=== PATIENT | female | born 1965 ===

== ENCOUNTER 2020-08-15 15:34 | Outpatient (REF) | payer OTHER, SELFPAY | END 2020-08-15 15:35 | disposition home or self-care (01) | LOC: HO.LAB 15:34 | PROVIDERS: Visit Provider Internal Medicine | DX: Z20.828 Contact with and (suspected) exposure to other viral communicable diseases (principal) | CPT/HCPCS: C9803; U0003 ==

== ENCOUNTER 2020-08-28 11:10 | Outpatient (REF) | payer OTHER, SELFPAY | END 2020-08-28 11:11 | disposition home or self-care (01) | LOC: HO.LAB 11:10 | PROVIDERS: Visit Provider Internal Medicine | DX: Z20.828 Contact with and (suspected) exposure to other viral communicable diseases (principal) | CPT/HCPCS: C9803; U0003 ==

== ENCOUNTER 2024-01-24 15:24 | Outpatient (AMB) | payer OTHER, SELFPAY ==
--- NOTE | 2024-01-24 15:31 | A.OFFVIS_ITS ---
Vital Signs 3 01/24/24 15:32 Height 5 ft 4 in Weight 160 lb 14.999 oz BMI 27.6 BP 107/51 L Blood Pressure Location Lt brachial Position Sitting Pulse 88 Intake Visit Reasons: Colonoscopy Screening Intake Note: Patient in office today for colonoscopy screening. CC: Last colonoscopy done about 5 years ago at [facility]. Patient c/o constipation she was given Linzess in the past but it did not work for her and she currently takes Miralax. Patient takes Famotidine for heartburn. 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 She is referred by [facility]. PMX PARMJIT Insomnia Fibromyalgia syndrome Hypothyroid Generalized osteoarthritis Urinary incontinence Diabetes high cholesterol hypertrigs gerd * SURGICAL HISTORY Tonsillectomy section * ALLERGIES Ketorolac-anaphylaxis * MEDITECH LABS: none TODAY'S VISIT She says her last colonoscopy was at [facility] and was negative. Apparently she was a [facility] patient. She has suffering CIC for many years, she has been on multiple meds including Linzess, but she does not know what dose she was at and it was not effective. She says she has a long hx and many tests including possible defecogram, but we were not sent any records to this effect. she is currently taking Miralax, but she dislikes this and it is not effective. All of the OTC pills including senna and bisacodyl give her severe cramping. She also says she has severe HB and usually gets EGD's q5 years, but she does not know if she has SSBE. Will restart Linzess 145mcg and titrate to affect her side effect since she does not know what dose she was on the past. She seems to think she had a test that showed something was not progressing properly or was getting stuck somewhere in the right lower quadrant area. There are no prior problems with anesthesia or sedation. She has PARMJIT and denies any cardiac problems. No ID problems. She thinks her mother had colon polyps, she has a lot of family members with CRC but not 1st degree relatives. [facility] Surgical History (Updated 01/24/24 @ 15:33 by JAMIR Ladd) H/O colonoscopy History of section Hx of tonsillectomy Family History (Updated 01/24/24 @ 15:42 by JAMIR Ladd) Maternal Aunt Diverticulosis Paternal Aunt H/O colectomy Social History (Updated 01/24/24 @ 15:42 by JAMIR Ladd) Alcohol intake: never Patient Tobacco Use Status: Never used Tobacco Review of Systems Const Denies fatigue, Denies fever(s), Denies night sweats, Denies poor appetite and Denies weight loss ENT Reports Normal hearing present, Denies dental pain, Denies dysphagia, Denies hearing loss, Denies mouth pain, Denies odynophagia, Denies throat swelling, Denies tongue swelling and Reports other (Dentition adequate) Card Reports no additional complaints Resp Reports no additional complaints GI Details: Denies abdominal pain, Denies melena, Denies bloating, Denies hematochezia, Reports constipation, Denies GI cramping, Denies dysphagia, Denies excessive flatus, Denies early satiety, Reports heartburn, Denies diarrhea, Denies nausea, Denies odynophagia, Denies vomiting and Denies hematemesis Skin/Breast Denies pruritus, Denies lesions, Denies rash and Denies jaundice Neuro Reports Normal hearing present and Denies Abnormal speech present Endo Denies fatigue Aller/Immun Denies throat swelling and Denies tongue swelling Physical Exam Vital Signs: Last Vital Signs Pulse 88 01/24/24 15:32 BP 107/51 L 01/24/24 15:32 BMI result Body Mass Index 27.6 Const General: cooperative, no acute distress, well developed and well groomed Nutritional Appearance: well nourished and overweight Orientation/consciousness: oriented to person, oriented to place and oriented to time Limitations: No language barrier HEENT Head: Yes normocephalic and Yes atraumatic Eyes General: appearance normal, both eyes and all related structures Pupils: Equal, round and reactive pupils present Neck Neck: Yes normal visual inspection and Yes no lymphadenopathy Thyroid: Thyroid normal Resp Effort & Inspection: normal respiratory effort and able to speak in complete sentences Auscultation: clear to auscultation bilaterally Cardio Rate: regular rate Rhythm: regular rhythm Heart sounds: Normal, physiologic split S2 sound present Peripheral pulses: radial pulses present and posterior tibial pulses present GI Inspection: No distended, No Abdominal panniculus present and Yes obesity Palpation (GI): Soft to palpation, nontender, no guarding, not rigid and No hepatosplenomegaly present Percussion: Yes normal to percussion Auscultation: normal bowel sounds Rectal Exam - Female: deferred Abdomen image: 2 1. surgical scar Skin General skin exam: no rashes or lesions noted, turgor normal, skin not dry, no jaundice, No spider nevi and no striae Rashes: no rashes Nails: normal Neuro General: oriented to person, oriented to place and oriented to time Cranial nerves: Yes Equal, round and reactive pupils present and Yes Normal hearing present Speech: No Abnormal speech present Extrem General: Yes normal to inspection, No clubbing, No cyanosis and No edema Psych Appearance: grossly normal and well kempt Mental Status: mental status grossly normal Speech and movement: Normal speech and movement present Affect: normal affect Attitude: cooperative Thought process: Circumstantial thought process present and not confabulating Thought content: Normal thought content present Insight: Limited insight present (Psych) Judgement: Limited judgement present (Psych) Assessment & Plan Assessment & Plan (1) Pre-op examination: Code(s): Z01.818 - Encounter for other preprocedural examination Category: Medical (2) Family history of polyps in the colon: Comment: mother Code(s): Z83.719 - Family history of colon polyps, unspecified Category: Medical (3) Esophagitis: Code(s): K20.90 - Esophagitis, unspecified without bleeding Category: Medical (4) GERD (gastroesophageal reflux disease): Code(s): K21.9 - Gastro-esophageal reflux disease without esophagitis Category: Medical (5) PARMJIT (obstructive sleep apnea): Code(s): G47.33 - Obstructive sleep apnea (adult) (pediatric) Category: Medical (6) Chronic idiopathic constipation: Code(s): K59.04 - Chronic idiopathic constipation Category: Medical Plan She says her last colonoscopy was at [facility] and was negative. Apparently she was a [facility] patient. She has suffering CIC for many years, she has been on multiple meds including Linzess, but she does not know what dose she was at and it was not effective. She says she has a long hx and many tests including possible defecogram, but we were not sent any records to this effect. she is currently taking Miralax, but she dislikes this and it is not effective. All of the OTC pills including senna and bisacodyl give her severe cramping. She also says she has severe HB and usually gets EGD's q5 years, but she does not know if she has SSBE. Will restart Linzess 145mcg and titrate to affect her side effect since she does not know what dose she was on the past. She seems to think she had a test that showed something was not progressing properly or was getting stuck somewhere in the right lower quadrant area. There are no prior problems with anesthesia or sedation. She has PARMJIT and denies any cardiac problems. No ID problems. She thinks her mother had colon polyps, she has a lot of family members with CRC but not 1st degree relatives. Orders: Orders 2 Comprehensive Met. Panel Today Z01.818 - Encounter for other preprocedural examination Complete Blood Count Auto Diff Today Z01.818 - Encounter for other preprocedural examination EGD/[place] Combo - GI Use Only Today K20.90 - Esophagitis, unspecified without bleeding, K21.9 - Gastro-esophageal reflux disease without esophagitis, Z83.719 - Family history of colon polyps, unspecified Medications: New 2 sod sulf-pot chloride-mag sulf 1.479-0.188- 0.225 gram (Sutab) PO PER PKG DIR for colonoscopy prep 24 tabs 0RF linaclotide (Linzess) Take first thing in the morning with a full glass of water. 145 mcg PO QAM 30 caps 3RF K58.1 - Irritable bowel syndrome with constipation Coding Level of Care Code New Pt Level 3 (25299) Diagnoses Pre-op examination Z01.818 Family history of polyps in the colon Z83.719 Esophagitis K20.90 GERD (gastroesophageal reflux disease) K21.9 PARMJIT (obstructive sleep apnea) G47.33 Chronic idiopathic constipation K59.04
[2024-01-24 15:32] VITALS: BP 107/51; PULSE 88; BMI 27.6
== END 2024-01-24 16:09 | disposition home or self-care (01) ==
PROVIDERS: PCP Internal Medicine Geriatric Medicine; Visit Provider Nurse Practitioner
DX: K59.04 Chronic idiopathic constipation (principal); K21.9 Gastro-esophageal reflux disease without esophagitis; Z01.818 Encounter for other preprocedural examination; Z12.11 Encounter for screening for malignant neoplasm of colon; Z83.719 Family history of colon polyps, unspecified; K20.90 Esophagitis, unspecified without bleeding; G47.33 Obstructive sleep apnea (adult) (pediatric)
CPT/HCPCS: 99203

== ENCOUNTER → 2024-01-24 15:24 | Outpatient (BNVA) | payer OTHER, SELFPAY | PROVIDERS: PCP Internal Medicine Geriatric Medicine; Visit Provider Nurse Practitioner ==

== ENCOUNTER 2024-02-13 14:41 | Outpatient (AMB) | payer OTHER, SELFPAY ==
[2024-02-13 14:45] VITALS: BP 102/64; PULSE 77; O2SAT 99; BMI 27.1
--- NOTE | 2024-02-13 14:45 | A.OFFVIS_ITS ---
Vital Signs 02/13/24 14:45 Height 5 ft 4 in Weight 158 lb BMI 27.1 BP 102/64 Blood Pressure Location Rt brachial Position Sitting Pulse 77 Pulse Source Doppler Pulse Oximetry (%) 99 Oxygen Delivery Method Room Air Intake Visit Reasons: sleep apnea Allergies ketorolac Allergy (Unknown, Verified 02/13/24 14:49) anaphylaxis HPI HPI sleep apnea: Details: 58-year-old lady with underlying diagnosis of moderate obstructive sleep apnea referred for initiation of CPAP therapy. Patient states that she also has underlying primary insomnia, now being managed by her primary care provider with Alfa. PFSH Surgical History (Updated 01/24/24 @ 15:33 by Liv Garza CCM) H/O colonoscopy History of section Hx of tonsillectomy Family History (Updated 01/24/24 @ 15:42 by JAMIR Ladd) Maternal Aunt Diverticulosis Paternal Aunt H/O colectomy Social History (Reviewed 02/13/24 @ 14:49 by Gladys Herrera [facility]) Alcohol intake: never Patient Tobacco Use Status: Never used Tobacco Review of Systems Const Reports difficulty sleeping Card Denies dyspnea Resp Denies dyspnea Physical Exam Vital Signs: Last Vital Signs Pulse 77 02/13/24 14:45 BP 102/64 02/13/24 14:45 Pulse Ox 99 02/13/24 14:45 Oxygen Delivery Method Room Air 02/13/24 14:45 BMI result Body Mass Index 27.1 Const General: no acute distress and alert Nutritional Appearance: not obese Orientation/consciousness: Other orientation findings ( oriented) HEENT Head: Yes atraumatic Eyes General: appearance normal, both eyes and all related structures Sclerae: sclerae normal EOM: EOMs intact bilaterally Neck Neck: Yes supple Lymphatic: no lymphadenopathy noted Resp Effort & Inspection: normal respiratory effort and no use of accessory muscles Auscultation: clear to auscultation bilaterally Cardio Rate: regular rate Rhythm: regular rhythm Heart sounds: no gallops, no murmurs and no rubs Skin General skin exam: other ( warm) Extrem General: No clubbing, No cyanosis and No edema Assessment & Plan Assessment & Plan (1) PARMJIT (obstructive sleep apnea): Code(s): G47.33 - Obstructive sleep apnea (adult) (pediatric) Category: Medical Plan: results of sleep study reviewed, underlying moderate obstructive sleep apnea. Will start on APAP of 6-16 cm of water. (2) Primary insomnia: Code(s): F51.01 - Primary insomnia Category: Medical Plan: Currently on Lunesta 2 mg daily. Will reassess at next visit. Coding Level of Care Code New Pt Level 4 (12418) Diagnoses PARMJIT (obstructive sleep apnea) G47.33 Primary insomnia F51.01
== END 2024-02-13 15:06 | disposition home or self-care (01) ==
PROVIDERS: PCP Internal Medicine Geriatric Medicine; Visit Provider Internal Medicine Pulmonary Disease
DX: G47.33 Obstructive sleep apnea (adult) (pediatric) (principal); F51.01 Primary insomnia
CPT/HCPCS: 99204

== ENCOUNTER → 2024-02-13 14:41 | Outpatient (BNVA) | payer OTHER, SELFPAY | PROVIDERS: PCP Internal Medicine Geriatric Medicine; Visit Provider Internal Medicine Pulmonary Disease ==

== ENCOUNTER 2024-04-17 13:38 | Outpatient (REF) | payer OTHER, SELFPAY ==
[2024-04-17 13:57] LABS: MANUAL DIFF FLAG NO
[2024-04-17 14:21] LABS: Basophils Absolute Auto 0.1 X10*3/uL (0.0-0.2); Basophils Percent Auto 0.6 % (0-2); Eosinophils Absolute Auto 0.1 X10*3/uL (0.0-0.4); Eosinophils Percent Auto 1.2 % (0-4); Hematocrit 40.5 % (37.0-47.0); Imm Gran Abs Auto 0.02 X10*3/uL (0.00-0.03); Imm Gran Pct Auto 0.2 % (0.0-0.4); Lymphocytes Absolute Auto 2.2 X10*3/uL (1.2-4.9); Lymphocytes Percent Auto 27.9 % (20-40); Mean Corpuscular HGB Conc 32.1 g/dl (31.0-35.0); Mean Corpuscular Hemoglobin 29.3 pg (27.0-33.0); Mean Corpuscular Volume 91.2 fL (80.0-98.0); Mean Platelet Volume 9.4 fL (9.4-12.3); Monocytes Absolute Auto 0.4 X10*3/uL (0.1-1.2); Monocytes Percent Auto 5.1 % (2-11); Neutrophils Absolute Auto 5.2 x10*3/uL (2.0-8.3); Platelet Count 299 X10*3/uL (160-400); Red Blood Count 4.44 X10*6/uL (4.20-5.50); Red Cell Distribution Width 13.1 % (11.0-16.0)
[2024-04-17 14:51] LABS: Alanine Aminotransferase 14 U/L (0-31); Alkaline Phosphatase 79 U/L (39-117); Anion Gap 11 (12-20); Aspartate Amino Transferase 14 U/L (5-31); Bilirubin Total 0.2 mg/dL (0.0-1.0); Blood Urea Nitrogen 17 mg/dL (9-16); Calcium 9.8 mg/dL (8.4-10.2); Carbon Dioxide 30 mmol/L (22-29); Chloride 102 mmol/L (96-108); Estimated Glomerular Filt Rate 48; Glucose Random 93 mg/dL (60-115); Potassium 4.2 mmol/L (3.3-5.1); Sodium 139 mmol/L (135-145); Total Protein 7.1 g/dL (6.5-8.0)
== END 2024-04-17 13:39 | disposition home or self-care (01) ==
LOC: HO.LAB 13:38
PROVIDERS: PCP Nurse Practitioner Family; Visit Provider Nurse Practitioner
DX: Z01.818 Encounter for other preprocedural examination (principal)
CPT/HCPCS: 36415; 80053; 85025

== ENCOUNTER 2024-04-18 15:30 | Outpatient (AMB) | payer OTHER, SELFPAY ==
[2024-04-18 15:36] VITALS: BP 109/61; PULSE 75; BMI 27.0
--- NOTE | 2024-04-18 15:36 | MHC.OFFVIS ---
Vital Signs 04/18/24 15:36 Height 5 ft 4 in Weight 157 lb 6.561 oz BMI 27.0 BP 109/61 Blood Pressure Location Lt brachial Position Sitting Pulse 75 Intake Visit Reasons: 4 weeks R/S from February Intake Note: Patient here to f/u Linzess medication. Reports no improvement. Requesting famotidine refill. Patient c/o: constipation not better. Only 2-3 BM per wk. Kelp Gatherer Required: No Accompanied by: Self / Same As Patient Allergies ketorolac Allergy (Unknown, Verified 04/18/24 15:40) anaphylaxis HPI HPI 4 weeks R/S from February: Details: Assessment & Plan (1) Pre-op examination: Code(s): Z01.818 - Encounter for other preprocedural examination Category: Medical (2) Family history of polyps in the colon: Comment: mother Code(s): Z83.719 - Family history of colon polyps, unspecified Category: Medical (3) Esophagitis: Code(s): K20.90 - Esophagitis, unspecified without bleeding Category: Medical (4) GERD (gastroesophageal reflux disease): Code(s): K21.9 - Gastro-esophageal reflux disease without esophagitis Category: Medical (5) PARMJIT (obstructive sleep apnea): Code(s): G47.33 - Obstructive sleep apnea (adult) (pediatric) Category: Medical (6) Chronic idiopathic constipation: Code(s): K59.04 - Chronic idiopathic constipation Category: Medical Plan She says her last colonoscopy was at [facility] and was negative. Apparently she was a [facility] patient. She has suffering CIC for many years, she has been on multiple meds including Linzess, but she does not know what dose she was at and it was not effective. She says she has a long hx and many tests including possible defecogram, but we were not sent any records to this effect. she is currently taking Miralax, but she dislikes this and it is not effective. All of the OTC pills including senna and bisacodyl give her severe cramping. She also says she has severe HB and usually gets EGD's q5 years, but she does not know if she has SSBE. Will restart Linzess 145mcg and titrate to affect her side effect since she does not know what dose she was on the past. She seems to think she had a test that showed something was not progressing properly or was getting stuck somewhere in the right lower quadrant area. There are no prior problems with anesthesia or sedation. She has PARMJIT and denies any cardiac problems. No ID problems. She thinks her mother had colon polyps, she has a lot of family members with CRC but not 1st degree relatives. Orders: Orders Comprehensive Met. Panel Today Z01.818 - Encounter for other preprocedural examination Complete Blood Count Auto Diff Today Z01.818 - Encounter for other preprocedural examination EGD/[place] Combo - GI Use Only Today K20.90 - Esophagitis, unspecified without bleeding, K21.9 - Gastro-esophageal reflux disease without esophagitis, Z83.719 - Family history of colon polyps, unspecified Medications: New sod sulf-pot chloride-mag sulf 1.479-0.188- 0.225 gram (Sutab) PO PER PKG DIR for colonoscopy prep 24 tabs 0RF linaclotide (Linzess) Take first thing in the morning with a full glass of water. 145 mcg PO QAM 30 caps 3RF K58.1 - Irritable bowel syndrome with constipation Labs: EGD/COLONOSCOPY 06/12/2024 BIOPSY TODAY'S VISIT She is not moving her bowels well with the LInzess 145mcg with miralax and colace, she can not tolerate senna or bisacodyl r/t pain and cramping. We will increase the Linzess to 290mcg and she can continue the other adjunct meds. SHe tells me she has NIDDM (did not know this) and neuropathy and she will be starting gabapentin. She is aware of the upcoming colonoscopy. ROV 5 weeks. [facility] Medical History (Updated 04/18/24 @ 15:53 by Grace Pineda, ANP-C) Pre-op examination Surgical History (Updated 01/24/24 @ 15:33 by Liv Garza CCM) H/O colonoscopy History of section Hx of tonsillectomy Family History (Updated 01/24/24 @ 15:42 by Liv Garza [facility]) Maternal Aunt Diverticulosis Paternal Aunt H/O colectomy Social History (Reviewed 02/13/24 @ 14:49 by Gladys Herrera [facility]) Alcohol intake: never Patient Tobacco Use Status: Never used Tobacco Review of Systems Const Denies fatigue, Denies fever(s), Denies night sweats, Denies poor appetite and Denies weight loss Eyes Details: glasses Reports requires corrective lenses ENT Reports Normal hearing present, Denies dental pain, Denies dysphagia, Denies hearing loss, Denies mouth pain, Denies odynophagia, Denies throat swelling, Denies tongue swelling and Reports other (Dentition adequate) Card Reports no additional complaints Resp Reports no additional complaints GI Details: Denies abdominal pain, Denies melena, Reports bloating, Denies hematochezia, Reports constipation, Reports GI cramping, Denies dysphagia, Denies excessive flatus, Denies early satiety, Denies heartburn, Denies diarrhea, Denies nausea, Denies odynophagia, Denies vomiting and Denies hematemesis Skin/Breast Denies pruritus, Denies lesions, Denies rash and Denies jaundice Neuro Reports Normal hearing present and Denies Abnormal speech present Endo Denies fatigue Aller/Immun Denies throat swelling and Denies tongue swelling Physical Exam Vital Signs: Last Vital Signs Pulse 75 04/18/24 15:36 BP 109/61 04/18/24 15:36 BMI result Body Mass Index 27.0 Const General: cooperative, no acute distress, well developed and well groomed Nutritional Appearance: average body habitus and well nourished Orientation/consciousness: oriented to person, oriented to place and oriented to time Limitations: No language barrier HEENT Head: Yes normocephalic and Yes atraumatic Eyes General: appearance normal, both eyes and all related structures Pupils: Equal, round and reactive pupils present Neck Neck: Yes normal visual inspection and Yes no lymphadenopathy Thyroid: Thyroid normal Resp Effort & Inspection: normal respiratory effort and able to speak in complete sentences Auscultation: clear to auscultation bilaterally Cardio Rate: regular rate Rhythm: regular rhythm Heart sounds: Normal, physiologic split S2 sound present Peripheral pulses: radial pulses present and posterior tibial pulses present GI Inspection: Yes distended and No Abdominal panniculus present Palpation (GI): Soft to palpation, nontender, no guarding, not rigid and No hepatosplenomegaly present Percussion: Yes normal to percussion Auscultation: normal bowel sounds Rectal Exam - Female: deferred Skin General skin exam: no rashes or lesions noted, turgor normal, skin not dry, no jaundice, No spider nevi and no striae Rashes: no rashes Nails: normal Neuro General: oriented to person, oriented to place and oriented to time Cranial nerves: Yes Equal, round and reactive pupils present and Yes Normal hearing present Speech: No Abnormal speech present Extrem General: Yes normal to inspection, No clubbing, No cyanosis and No edema Psych Appearance: grossly normal and well kempt Mental Status: mental status grossly normal Speech and movement: Normal speech and movement present Affect: normal affect Attitude: cooperative Thought process: Normal thought process present and not confabulating Thought content: Normal thought content present Insight: Fair insight present (Psych) and Limited insight present (Psych) Judgement: Fair judgement present (Psych) and Limited judgement present (Psych) Assessment & Plan Assessment & Plan (1) Chronic idiopathic constipation: Code(s): K59.04 - Chronic idiopathic constipation Category: Medical (2) Diabetic neuropathy: Code(s): E11.40 - Type 2 diabetes mellitus with diabetic neuropathy, unspecified Category: Medical Plan She is not moving her bowels well with the LInzess 145mcg with miralax and colace, she can not tolerate senna or bisacodyl r/t pain and cramping. We will increase the Linzess to 290mcg and she can continue the other adjunct meds. SHe tells me she has NIDDM (did not know this) and neuropathy and she will be starting gabapentin. She is aware of the upcoming colonoscopy. ROV 5 weeks. EGD/COLONOSCOPY 06/12/2024 BIOPSY Medications: New linaclotide (Linzess) 290 mcg PO QAM 30 caps 6RF 30 days K59.04 - Chronic idiopathic constipation docusate sodium (Colace) 100 mg PO .DAILY WITH FOOD 30 caps 6RF 30 days Discontinued linaclotide (Linzess) Take first thing in the morning with a full glass of water. Discontinued Reason: Doctor's Order 145 mcg PO QAM 30 caps 3RF K58.1 - Irritable bowel syndrome with constipation Coding Level of Care Code Est Pt Level 3 (48477) Diagnoses Chronic idiopathic constipation K59.04 Diabetic neuropathy E11.40
== END 2024-04-18 16:04 | disposition home or self-care (01) ==
PROVIDERS: PCP Internal Medicine Geriatric Medicine; Visit Provider Nurse Practitioner
DX: K59.04 Chronic idiopathic constipation (principal); E11.40 Type 2 diabetes mellitus with diabetic neuropathy, unspecified
CPT/HCPCS: 99213

== ENCOUNTER → 2024-04-18 15:30 | Outpatient (BNVA) | payer OTHER, SELFPAY | PROVIDERS: PCP Internal Medicine Geriatric Medicine; Visit Provider Nurse Practitioner ==

== ENCOUNTER 2024-06-27 11:56 | Day surgery (SDC) | payer OTHER, SELFPAY ==
[2024-06-25 14:54] VITALS: BMI 26.9
--- NOTE | 2024-06-26 09:31 | HO.ANESPROP2 ---
Documented by User: Kathy Heath NP 06/26/24 09:32 HPI - Anesthesia Eval Consult details Narrative: 58yo F for Upper Endoscopy and Colonoscopy PMF Active Problems Active Problems: All Active Problems Diabetic neuropathy (Acute) High cholesterol (Acute) Diabetes (Acute) Primary insomnia (Acute) Chronic idiopathic constipation (Acute) GERD (gastroesophageal reflux disease) (Acute) Esophagitis (Acute) Family history of polyps in the colon (Acute) Generalized osteoarthritis (Acute) Urinary incontinence (Acute) Hypothyroid (Acute) Fibromyalgia (Acute) PARMJIT (obstructive sleep apnea) (Acute) Past Medical History Medical History (Updated 06/25/24 @ 14:55 by Claudia Ocampo, REYNA) Sleep apnea Urinary incontinence Elevated cholesterol Fibromyalgia Hypothyroid Diabetes GERD (gastroesophageal reflux disease) Family History Family History (Updated 01/24/24 @ 15:42 by Liv Garza [facility]) Maternal Aunt Diverticulosis Paternal Aunt H/O colectomy Surgical History Surgical History (Updated 01/24/24 @ 15:33 by Liv Garza CCM) H/O colonoscopy History of section Hx of tonsillectomy Social History Social History Alcohol intake: never Patient Tobacco Use Status: Never used Tobacco Are you DNR?: No Advance Directives: No Advance Directives Information Provided: Yes Meds Allergies Allergy/AdvReac Type Severity Reaction Status Date / Time ketorolac Allergy Unknown anaphylaxis Verified 04/18/24 15:40 Home Medications ?Medication ?Instructions ?Recorded ?Confirmed ?Last Taken ?Type duloxetine 60 mg capsule,delayed 60 mg PO DAILY 01/24/24 06/25/24 Unknown History release eszopiclone 2 mg tablet 2 mg PO BEDTIME PRN Insomnia 01/24/24 06/25/24 Unknown History ezetimibe 10 mg tablet 10 mg PO DAILY 01/24/24 06/25/24 Unknown History levothyroxine 137 mcg tablet 137 mcg PO DAILY 01/24/24 06/25/24 Unknown History metformin 500 mg tablet,extended 500 mg PO DAILY 01/24/24 06/25/24 Unknown History release 24 hr mirabegron 25 mg tablet,extended 25 mg PO DAILY 01/24/24 06/25/24 Unknown History release 24 hr naproxen 500 mg tablet 500 mg PO DAILY 01/24/24 06/25/24 Unknown History polyethylene glycol 3350 17 g PO 01/24/24 Unknown History gram/dose oral powder (Purelax) Exam Height,Weight and Vital Signs: Height 5 ft 4 in Weight 71.214 kg Assessment and Plan Assessment Anesthesia Assessment: Chart Reviewed Documented by User: David Burrell MD 06/27/24 14:38 [facility] Past Medical History Medical History (Updated 06/25/24 @ 14:55 by Claudia Ocampo RN) Sleep apnea Urinary incontinence Elevated cholesterol Fibromyalgia Hypothyroid Diabetes GERD (gastroesophageal reflux disease) Family History Family History (Updated 01/24/24 @ 15:42 by JAMIR Ladd) Maternal Aunt Diverticulosis Paternal Aunt H/O colectomy Family history of problems with anesthesia: No Surgical History Surgical History (Updated 01/24/24 @ 15:33 by JAMIR Ladd) H/O colonoscopy History of section Hx of tonsillectomy History of Problems with Anesthesia: No Social History Social History Alcohol intake: never Patient Tobacco Use Status: Never used Tobacco Are you DNR?: No Advance Directives: No Advance Directives Information Provided: Yes Meds Allergies Allergy/AdvReac Type Severity Reaction Status Date / Time ketorolac Allergy Unknown anaphylaxis Verified 04/18/24 15:40 Home Medications ?Medication ?Instructions ?Recorded ?Confirmed ?Last Taken ?Type duloxetine 60 mg capsule,delayed 60 mg PO DAILY 01/24/24 06/25/24 Unknown History release eszopiclone 2 mg tablet 2 mg PO BEDTIME PRN Insomnia 01/24/24 06/25/24 Unknown History ezetimibe 10 mg tablet 10 mg PO DAILY 01/24/24 06/25/24 Unknown History levothyroxine 137 mcg tablet 137 mcg PO DAILY 01/24/24 06/25/24 Unknown History metformin 500 mg tablet,extended 500 mg PO DAILY 01/24/24 06/25/24 Unknown History release 24 hr mirabegron 25 mg tablet,extended 25 mg PO DAILY 01/24/24 06/25/24 Unknown History release 24 hr naproxen 500 mg tablet 500 mg PO DAILY 01/24/24 06/25/24 Unknown History polyethylene glycol 3350 17 g PO 01/24/24 Unknown History gram/dose oral powder (Purelax) Exam Airway Mallampati Class: I TM Dist: <=3cm Neck ROM: Full Heart: ok Lungs: ok Assessment and Plan Assessment Anesthesia Assessment: Anesthesia Plan Discussed Final Anesthetic Review Family History of Problems with Anesthesia: No History of Problems with Anesthesia: No NPO: Yes ASA Class: III Final Preanesthetic Review: No Changes in Pt Med Stat, Meds/Allgs Chart Reviewed, Consent Obtained/Reviewed and Anes Risks/Benef Reviewed Patient Risk: Intermediate Procedure Risk: Intermediate Anesthetic Plan Anesthetic Plan: GA and Agree w/ Assess. and Plan Disposition: Standard PACU
[2024-06-27 13:48] VITALS: BP 124/61; PULSE 83; RESP 16; TEMP 37.2; O2SAT 95; BMI 28.3
[2024-06-27 13:59] LABS: Glucose, Whole Blood 94 mg/dL (60-115)
--- NOTE | 2024-06-27 14:00 | MHC.SHP ---
Pre-Procedural Eval Section A - 24 Hr Update-Section A only Date of Service: 06/27/24 Section B - Complete if H&P > 30 days Chief Complaint: Gastro-esophageal reflux disease without esophagit Details of Present Illness: abn bowel habits Relevant Family History (Specify if Yes): Yes Relevant Social History: None Present Medications: see Short Stay Collaborative assessment Medical History: Significant History (OA, GERD, HLP, Hypothyroid, PARMJIT) History of Previous Operations: Relevant previous surgery/procedure and date(s) (H/O colonoscopy History of section Hx of tonsillectomy) Allergies: Allergies Allergy/AdvReac Type Severity Reaction Status Date / Time ketorolac Allergy Unknown anaphylaxis Verified 04/18/24 15:40 Review of Systems Sugical H&P ROS: Negative: Constitution, Cardiovascular, Respiratory, Neurological, Psychiatric, Hem-Onc, Allergic/Immunologic, Gastrointestinal, Genitourinary, Musculoskeletal, Integumentary, Endocrine and Eyes/Ears/Nose/Throat Exam Surgical H&P Exam: Normal: HEENT, Normal: Heart, Normal: Lungs, Normal: Extremities, Normal: Abdomen, Normal: Skin and Normal: Neurological Plan Diagnosis/Plan: Unchanged I have reviewed the history and physical and performed a pertinent physical examination on my patient. No changes have occurred unless specified. Time Spent With Patient Time: Total time managing care of this patient today ____ minutes.
[2024-06-27] MEDS: Lactated Ringers 1,000 ML 100 ML IVCONT (14:03)
--- NOTE | 2024-06-27 14:48 | HO.OPN-COLON ---
Colonoscopy Operative Note Operative Note Date of Service: 06/27/24 Narrative: Operative Information Procedure Description: EGD, Colonoscopy Indication: abn bowel habit Anesthesia: MAC FLEXIBLE TRANSORAL UPPER GASTROINTESTINAL ENDOSCOPY AND COLONOSCOPY PROCEDURE NOTE UPPER ENDOSCOPY Consent: Indications for the procedure and potential complications of bleeding, perforation, reaction to medications and missed diagnosis were discussed with the patient and informed consent was obtained. Instrument: Olympus GIF H 190 J mid size upper endoscope Monitoring: Vital signs and clinical assessment, continuous EKG monitoring, Pulse oximetry, Carbon Dioxide monitoring and blood pressure monitoring were done throughout the procedure. Procedure: The patient was placed in the left lateral decubitis position and pre-procedure medications were administered and a bite block was placed. The endoscope was inserted into the mouth and advanced under direct vision to the third part of duodenum. A careful inspection was made as the upper endoscope was withdrawn including a retroflexed examination of the proximal stomach; Findings and interventions are described below. Findings: Larynx:normal Esophagus: GE junction at 40 cm, diaphragm hiatus at 40 cm, bogginess and streaky erosions consistent with LA grade A erosive esophagitis. bx taken from here, distal and proximal areas, x 2 clips applied at GEJ due to oozing Stomach: Patchy erythema. Biopsies were obtained. Grade 2 flap valve on retroflexed examination of the cardia. reduced gastric motility noted. Duodenum: Normal bulb and descending duodenum, Intervention: Biopsies as noted above, COLONOSCOPY Instrument: Olympus variable stiffness pediatric scope 190L Colonoscopy Monitoring: Vital signs and clinical assessment, continuous EKG monitoring, Pulse oximetry, Carbon Dioxide monitoring and blood pressure monitoring were done throughout the procedure. Colon withdrawal time was 10 minutes. Procedure: The patient was placed in the left lateral decubitis position and pre-procedure medications were administered. After a digital rectal examination of the ano-rectum, the video colonoscope was inserted into the rectum and advanced through the colon to the cecum/TI. The colonoscope was slowly withdrawn in a retrograde panoramic fashion and the colon mucosa was carefully examined including a retroflexed view of the rectum. Findings and interventions are described below. Procedure Difficulty:moderate Findings: Terminal Ileum-normal, bx taken random colon bx Cecum:10 mm sessile polyp removed with cold snare Ascending Colon: normal Transverse Colon -normal Descending Colon: 10 mm sessile polyp removed with cold snare Sigmoid Colon: normal Rectum: Retroflexion with small internal hemorrhoids, grade I Anorectum - normal Colon preparation: [place] Bowel Preparation Scale Right colon; 2 Transverse colon: 2 Left colon; 2 (0 = Unprepared colon segment with mucosa not seen due to solid stool that cannot be cleared. 1 = Portion of mucosa of the colon segment seen, but other areas of the colon segment not well seen due to staining, residual stool and/or opaque liquid. 2 = Minor amount of residual staining, small fragments of stool and/or opaque liquid, but mucosa of colon segment seen well. 3 = Entire mucosa of colon segment seen well with no residual staining, small fragments of stool or opaque liquid) Impression and Post Procedure Diagnosis: Endoscopy Findings: erosive esophagitis gastritis possible gastroparesis Colonoscopy Findings: colon polyps internal hemorrhoids Plan: Await Pathology results Repeat Colonoscopy in 3-4 years due to polyps or earlier if clinically indicated High fiber diet leaflet avoid straining at stool, epsom salts and sitz bath, anusol supps or cream consider PPI trial Above findings were reviewed with the patient and relevant handouts were provided if indicated.
[2024-06-27 14:53] VITALS: BP 99/54; PULSE 74; RESP 18; TEMP 36.6; O2SAT 94
[2024-06-27 15:05] VITALS: BP 117/56; PULSE 66; RESP 18; TEMP 36.6; O2SAT 96
== END 2024-06-27 15:21 | disposition home or self-care (01) ==
PROVIDERS: PCP Nurse Practitioner Family; Visit Provider Internal Medicine Gastroenterology
PROC: (CPT 45385; principal; 2024-06-27 14:10)
DX: K59.04 Chronic idiopathic constipation (principal); Z83.719 Family history of colon polyps, unspecified; D12.0 Benign neoplasm of cecum; K63.5 Polyp of colon; K64.0 First degree hemorrhoids; K21.9 Gastro-esophageal reflux disease without esophagitis; K20.80 Other esophagitis without bleeding; K29.50 Unspecified chronic gastritis without bleeding; K31.84 Gastroparesis; K44.9 Diaphragmatic hernia without obstruction or gangrene; E78.5 Hyperlipidemia, unspecified; E03.9 Hypothyroidism, unspecified; M79.7 Fibromyalgia; E11.40 Type 2 diabetes mellitus with diabetic neuropathy, unspecified; G62.9 Polyneuropathy, unspecified; G47.33 Obstructive sleep apnea (adult) (pediatric); Z79.1 Long term (current) use of non-steroidal anti-inflammatories (NSAID); Z79.84 Long term (current) use of oral hypoglycemic drugs; Z79.899 Other long term (current) drug therapy; Z88.8 Allergy status to other drugs, medicaments and biological substances
CPT/HCPCS: 45385; 45380; 43239; 82947; 88305; 88313; 88342; J2003; J2704

== ENCOUNTER → 2024-06-27 11:56 | Outpatient (BNV) | payer OTHER, SELFPAY | PROVIDERS: PCP Nurse Practitioner Family; Visit Provider Internal Medicine Gastroenterology | DX: R19.4 Change in bowel habit (principal); D12.0 Benign neoplasm of cecum; K63.5 Polyp of colon; K64.0 First degree hemorrhoids; K21.00 Gastro-esophageal reflux disease with esophagitis, without bleeding; K29.70 Gastritis, unspecified, without bleeding | CPT/HCPCS: 43239; 45380; 45385 ==

== ENCOUNTER → 2024-07-12 15:44 | Outpatient (AMB) | payer OTHER, SELFPAY ==
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
[2024-07-12 16:18] VITALS: BP 108/54; BMI 26.9
== END ==
LOC: HO.HGI 15:45
PROVIDERS: PCP Nurse Practitioner Family; Visit Provider Nurse Practitioner
DX: K31.84 Gastroparesis (principal); E11.9 Type 2 diabetes mellitus without complications; K59.04 Chronic idiopathic constipation; K21.9 Gastro-esophageal reflux disease without esophagitis; K22.10 Ulcer of esophagus without bleeding; D12.6 Benign neoplasm of colon, unspecified
CPT/HCPCS: 99214

== ENCOUNTER → 2024-07-12 15:44 | Outpatient (BNVA) | payer OTHER, SELFPAY | PROVIDERS: PCP Nurse Practitioner Family; Visit Provider Nurse Practitioner ==

== ENCOUNTER 2024-09-13 15:23 | Outpatient (AMB) | payer OTHER, SELFPAY ==
--- NOTE | 2024-09-13 15:27 | A.OFFVIS_ITS ---
Vital Signs 09/13/24 15:35 Height 5 ft 4 in Weight 156 lb 8.451 oz BMI 26.9 BP 108/74 Blood Pressure Location Lt brachial Position Sitting Pulse 94 Intake Visit Reasons: 2 mos FUV. Intake Note: Patient present in follow up of constipation. CC: Patient c/o constipation, abdominal pain sometimes, and a little bit of heartburn. Per patient she was told that thyroid is out of control and is waiting for her doctor to increase her medication. 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 Now she has no appetite and severe CIC that has not responded to all OTC's and the highest dose LInzess. She tells me a story re: gas trapping that hospitalized her after childbirth, and it sounds like gastroparesis - she IS diabetic. Start reglan empirically and order GES, going to AMitiza 24mcg bid and she continues on pantoprazole bid - since she has erosive esohagitis. ROV 4 weeks. Assessment & Plan (1) Diabetes: Code(s): E11.9 - Type 2 diabetes mellitus without complications Category: Medical (2) Gastroparesis: Code(s): K31.84 - Gastroparesis Category: Medical Medications: New metoclopramide HCl (Reglan) 5 mg PO QIDACHS 120 tabs 6RF E11.9 - Type 2 diabetes mellitus without complications, K31.84 - Gastroparesis CORRESPONDENCE On 07/19/24 @ 14:57 Aurelia Mace Wrote To Grace Pineda spoke w/ patient - patient states she paid $40 for the current script she has but will check with pharmacy to see what her alternatives are. If not, she will get the new script sent and see if she can get it at a lower qty with lower oop cost. I advised her to call us with any concerns. On 07/19/24 @ 14:48 Grace Pineda Wrote To Aurelia Mace Grace Pineda removed from item. On 07/19/24 @ 14:47 Grace Pineda Wrote To Grace Pineda (2) Please call the patient and advised her I will put her back on the 8 mcg dose twice a day instead of the 24 micro g dose and hopefully this will take care of the problem. Medication Orders lubiprostone 24 mcg PO BID 60 caps 6RF 30 days Discontinued lubiprostone 8 mcg PO BID 60 caps 6RF New On 07/19/24 @ 14:26 Rigoberto Pitts Wrote To Grace Pineda (2) Pt called [facility] and was looking to speak to someone regarding the rx for Amitiza. Pt states that she had reduced her dosing schedule to once daily instead of BID and was still having many difficulties pertaining to frequent diarrhea and abd cramping. Pt decided at that time to stop taking the medication as it was causing her to not be able to function on a day to day basis. Since then, as anticipated per pt, she has been having issues with constipation and has only been having occasional BM with small amounts of stool being passed. Pt is hoping that we can come up with another solution. GES 10/02/2024 TODAY'S VISIT She is now suffering severe CIC, she is only taking the Amitza in the am I am not good at taking medicines at night. I suggest that she take #2 8mg tablets in the morning. She is taking the reglan bid at this time. I recommend that she take #2 5mg tablets bid since she till has not appetite and severe CIC. Complicating things, her TSH is very high (she had it drawn in [place]) and this is likely impacting her GI motility as well. She likely needs an increase in her levothyroxine or a referral to [facility]. I will order TSH to try to help her move forward. Her brother had an appendectomy recently in [place] and then a perforation. She has the GES upcoming. ROV after GES. [facility] Medical History (Updated 09/13/24 @ 16:00 by VERNA Parker) Sleep apnea Urinary incontinence Elevated cholesterol Fibromyalgia Hypothyroid Diabetes GERD (gastroesophageal reflux disease) Surgical History H/O colonoscopy History of section Hx of tonsillectomy Family History Maternal Aunt Diverticulosis Paternal Aunt H/O colectomy Social History Alcohol intake: never Patient Tobacco Use Status: Never used Tobacco Review of Systems Const Reports fatigue, Denies fever(s), Reports malaise, Denies night sweats, Reports poor appetite and Denies weight loss Eyes Details: glasses Reports requires corrective lenses ENT Reports Normal hearing present, Denies dental pain, Denies dysphagia, Denies hearing loss, Denies mouth pain, Denies odynophagia, Denies throat swelling, Denies tongue swelling and Reports other (Dentition adequate) Card Reports no additional complaints Resp Reports no additional complaints GI Details: Denies abdominal pain, Denies melena, Denies bloating, Denies hematochezia, Reports constipation, Denies GI cramping, Denies dysphagia, Denies excessive flatus, Reports early satiety, Denies heartburn, Denies diarrhea, Denies nausea, Denies odynophagia, Denies vomiting and Denies hematemesis Skin/Breast Denies pruritus, Denies lesions, Denies rash and Denies jaundice Neuro Reports Normal hearing present and Denies Abnormal speech present Psych Reports abnormal sleep pattern Endo Reports fatigue Aller/Immun Denies throat swelling and Denies tongue swelling Physical Exam Vital Signs: Last Vital Signs Pulse 94 09/13/24 15:35 BP 108/74 09/13/24 15:35 BMI result Body Mass Index 26.9 Const General: cooperative, no acute distress, well developed and well groomed Nutritional Appearance: well nourished and overweight Orientation/consciousness: oriented to person, oriented to place and oriented to time Limitations: No language barrier HEENT Head: Yes normocephalic and Yes atraumatic Eyes General: appearance normal, both eyes and all related structures Pupils: Equal, round and reactive pupils present Neck Neck: Yes normal visual inspection and Yes no lymphadenopathy Thyroid: Thyroid normal Resp Effort & Inspection: normal respiratory effort and able to speak in complete sentences Auscultation: clear to auscultation bilaterally Cardio Rate: regular rate Rhythm: regular rhythm Heart sounds: Normal, physiologic split S2 sound present Peripheral pulses: radial pulses present and posterior tibial pulses present GI Inspection: No distended and No Abdominal panniculus present Palpation (GI): Soft to palpation, nontender, no guarding, not rigid and No hepatosplenomegaly present Percussion: Yes normal to percussion Auscultation: normal bowel sounds Rectal Exam - Female: deferred Skin General skin exam: no rashes or lesions noted, turgor normal, skin not dry, no jaundice, No spider nevi and no striae Rashes: no rashes Nails: normal Neuro General: oriented to person, oriented to place and oriented to time Cranial nerves: Yes Equal, round and reactive pupils present and Yes Normal hearing present Speech: No Abnormal speech present Extrem General: Yes normal to inspection, No clubbing, No cyanosis and No edema Psych Appearance: grossly normal and well kempt Mental Status: mental status grossly normal Speech and movement: Normal speech and movement present Affect: normal affect Attitude: cooperative Thought process: Normal thought process present and not confabulating Thought content: Normal thought content present Insight: Fair insight present (Psych) Judgement: Fair judgement present (Psych) Assessment & Plan Assessment & Plan (1) Gastroparesis: Code(s): K31.84 - Gastroparesis Category: Medical (2) Chronic idiopathic constipation: Code(s): K59.04 - Chronic idiopathic constipation Category: Medical (3) GERD (gastroesophageal reflux disease): Code(s): K21.9 - Gastro-esophageal reflux disease without esophagitis Category: Medical (4) Hypothyroid: Code(s): E03.9 - Hypothyroidism, unspecified Category: Medical Plan She is now suffering severe CIC, she is only taking the Amitza in the am I am not good at taking medicines at night. I suggest that she take #2 8mg tablets in the morning. She is taking the reglan bid at this time. I recommend that she take #2 5mg tablets bid since she till has not appetite and severe CIC. Complicating things, her TSH is very high (she had it drawn in [place]) and this is likely impacting her GI motility as well. She likely needs an increase in her levothyroxine or a referral to [facility]. I will order TSH to try to help her move forward. Her brother had an appendectomy recently in [place] and then a perforation. She has the GES upcoming. ROV after GES. Orders: Orders NM gastric emptying study 09/11/24 K31.84 - Gastroparesis TSH reflex Free T4 Today E03.9 - Hypothyroidism, unspecified, K59.04 - Chronic idiopathic constipation Coding Level of Care Code Est Pt Level 3 (04460) Diagnoses Gastroparesis K31.84 Chronic idiopathic constipation K59.04 GERD (gastroesophageal reflux disease) K21.9 Hypothyroid E03.9
[2024-09-13 15:35] VITALS: BP 108/74; PULSE 94; BMI 26.9
--- OUTSIDE RECORDS SUMMARY | 2024-09-13 16:50 | XMS_ITS | Continuity of Care Document ---
Author Organization [facility] Address [address] [place] [address] Phone Care Team Providers Care Hematology Supervisor Name Role Phone Ezekiel Cobian MD, ABSKerline, [...] Copied on Encounter [facility] , [address] [place] [address], [id number], [place] tel:[phone] [facility] No Information 4 Mango Matthews. [address] [place] [address], [id number] , [place]. tel:[phone] [facility] , [address] [place] [address], [id number], [place] tel:[phone] [facility] No Information 3 Mango Matthews. [address] [place] [address], [id number] , [place]. tel:[phone] [facility] , [address] [place] [address], [facility]ly [facility], [place] tel:[phone] [facility] No Information 3 Mango Matthews. [address] [place] [address], [id number] , [place]. tel:[phone] Referring Provider: PCP No. [facility] , [address] [place] [address], [facility], [place] tel:[phone] [facility] No Information 3 Mango Matthews. [address] [place] [address], [id number] , [place]. tel:[phone] Referring Provider: Cassie Churchill, [address] [place] [address], [id number] . tel:[phone] New Pt Ov Level 4 [facility] , [address] [place] [address], [id number], [place] tel:[phone] [facility] Body mass index (BMI) 28.0-28.9, adultObstructive sleep apnea (adult) (pediatric)Psychophy siologic insomniaFibromyalgia Apr- 3 Mango Matthews. [address] [place] [address], [id number] , [place]. tel:[phone] Referring Provider: Marleny franks MD, [address] [place], [address]. tel:[phone] Family History Family Member Type Diagnosis Age [...] Covered alliance party ID Clive keys(s) [employer] [id number] Social History Type Description Quantity Date Captured [...]
== END 2024-09-13 16:04 | disposition home or self-care (01) ==
PROVIDERS: PCP Nurse Practitioner Family; Visit Provider Nurse Practitioner
DX: K31.84 Gastroparesis (principal); K59.04 Chronic idiopathic constipation; K21.9 Gastro-esophageal reflux disease without esophagitis; E03.9 Hypothyroidism, unspecified
CPT/HCPCS: 99213

== ENCOUNTER → 2024-09-13 15:23 | Outpatient (BNVA) | payer OTHER, SELFPAY | PROVIDERS: PCP Nurse Practitioner Family; Visit Provider Nurse Practitioner | DX: K31.84 Gastroparesis (principal) ==

== ENCOUNTER → 2024-10-02 08:26 | Outpatient (REF) | payer OTHER, SELFPAY ==
--- NOTE | ~2024-10-02 | NM_ITS ---
EXAMINATION: NC RADIONUCLIDE SOLID FOOD GASTRIC EMPTYING 4-HOUR STUDY CLINICAL INFORMATION: Gastroparesis COMPARISON: None TECHNIQUE: A standard meal consisting of 4 oz of Egg Beaters brand tagged with 1.0 microcuries Tc-99m Sulfur Colloid, 8 oz water and 2 slices of toast with jelly was administered orally to the patient. Images were obtained using a dual head gamma camera in the anterior and posterior projections over of the stomach immediately post ingestion and at hourly intervals up to 4 hours post ingestion. The anterior and posterior counts at each time interval were averaged using the geometric mean and expressed as percentage of the immediate post ingestion counts. FINDINGS: There is good visualization of activity in the stomach immediately post ingestion. As the study progresses, there is good clearance of activity from the stomach and visualization of progressively increasing small bowel activity. By the end of the study, there is mild retention noted in the stomach. Retention in the stomach at each time interval was: 1 hour 86% (normal 37%-90%) 2 hours 37% (normal 30%-60%) 3 hours 21% 4 hours 11% (normal 0%-10%) NC/NC gastric emptying study IMPRESSION: Abnormal 4-hour solid food gastric emptying study.. Grade 1. For solid meal, rapid gastric emptying is less than 30% at 60 minutes. Delayed gastric emptying criteria is more than 60% remaining at 120 minutes or more than 10% at 240 minutes. The 4-hour value is the best discriminator of a normal or abnormal result). Gastric emptying study grading per JNMT Consensus Recommendations in 2008 (https://tech.snmjournals.org/content/36/1/44) Grade 1 (mild retention): 11-20% at 4h Grade 2 (moderate retention): 21-35% at 4h Grade 3 (severe retention): 36-50% at 4h Grade 4 (very severe retention): >50% retention at 4h Electronically signed by: Aaron Leon MD 10/02/2024 01:56 PM [facility]
--- OUTSIDE RECORDS SUMMARY | 2024-10-02 08:49 | XMS_ITS | Clinical Summary ---
Author Organization [email or web address] Address [address] [place] [address] Care Team Providers Care Medical Administrative Specialist Name Role Phone Unavailable Primary Care Provider Unavailabl e Allergies Active Allergy Reactions Criticality Noted Date Comments Cat Dander 10/21/2023 Ketorolac Tromethamine Shortness of breath High 05/06 Medications DULoxetine (Cymbalta) [address] capsule Take 60 mg by mouth 2 times daily. 12/19/2017 Active gabapentin (Neurontin) 300 MG capsule Take 300 mg by mouth 3 times daily. Active levothyroxine (Tirosint) 112 MCG capsule Take by mouth before breakfast. Active metFORMIN XR (Glucophage-XR) 500 MG 24 hr tablet Take 500 mg by mouth Once per day. 03/25/2024 Active Active Problems Problem Noted Date Diagnosed Date Crowded teeth 05/22/2024 Dental plaque 05/22/2024 Dental calculus 10/21/2023 Encounters Date Type Department Care Team Description 08/16/2024 Telephone [facility] [address] [place] [address] Rocio Silva from Last 3 Months Social History Tobacco Use Types Packs/Day Years Used Date Smoking Tobacco: Never Smokeless Tobacco: Never Tobacco Cessation:Counseling Given: Not Answered Alcohol Use Standard Drinks/Week Comments Yes 0 (1 standard drink = 0.6 oz pur e alcohol) Comments Unknown Sex and Gender Information Value Date Recorded Sex Assigned at Female 07/05/2022 10:20 AM EDT Legal Sex Female 10:20 AM EDT Gender Identity Female 07/05/2022 10:20 AM EDT Sexual Orientation Choose not to disclose 2021 10:20 AM EDT Last Filed Vital Signs Vital Sign Reading Time Taken Comments Blood Pressure 104/74 05/22/2024 3:18 PM EDT Pulse 75 05/22/2024 3:18 PM EDT Temperature - - Respiratory Rate - - Oxygen Saturation - - Inhaled Oxygen Concentration - - Weight - - Height - - Body Mass Index - - Plan of Treatment Upcoming Encounters Date Type Department Care Team (Late st Contact Info) Description 11/26/2024 2:00 PM EDT Office Visit [facility] [address] [place] [address] Ricardo, Rocio [address] [place] [address] Health Maintenance Due Date Last Done Comments CT Colonography 1964 Colonoscopy 1964 Colorectal Cancer Screening 1964 Depression Screening 1964 FIT DNA/Cologuard 1964 FIT 1964 FOBT 1964 HIV Screening 1964 Lipid Panel 1964 SDOH Screening 1964 Sigmoidoscopy 1964 Alcohol/Substance Use Screening 1976 Hepatitis C Screening 1982 Pap Smear 1985 Cervical Cancer Screening 1994 HPV/Cotest 1994 Dental X-Ray: Full Mouth 06/24/2015 06/23/2012 Dental X-Ray: Bitewings 06/19/2021 06/18/20, 11/15/2018, 05/20/2015, Additional history exists Dental Oral Exam 07/31/2021 01/27/2021, , 12/14/2018, Additional history exists Hepatitis B Vaccines (2 of 2 - CpG 2-dose series) 11/10/2023 10/13/2023, 10/13/2023 COVID-19 Vaccine ( season) 2024 09/03/2021, 10/09/2020, 09/11/2020 Influenza Vaccine (#1) 2024 3, 08/13/2022, 08/13/2022, Additional history exists Dental Prophylaxis 11/20/2024 05/22/2024, 0 10/21/2023, 01/27/2021, Additional history exists Mammogram 03/29/2025 03/29/2023 Tobacco Screening 05/22/2025 05/22/2024 DTaP/Tdap/Td Vaccines (3 - Td or Tdap) 11/21/2033 11/22/2023, 04/05/2013, 10/07/2007, Additional history exists RSV Patients and Patients Aged 60 years or older (1 - 1-dose 75+ series) 2039 Zoster Vaccines Completed 09/03/2021, 05/09/2021 Pneumococcal Vaccine: Pediatrics (0 to 5 Years) and At-Risk Patients (6 to 64 Years) Aged Out 07/18/2023 No longer eligible based on patient's age to complete this topic HIB Vaccines Aged Out No longer eligi ble based on patient's age to complete this topic HPV Vaccines Aged Out No longer eligi ble based on patient's age to complete this topic Hepatitis A Vaccines Aged Out No long er eligible based on patient's age to complete this topic IPV Vaccines Aged Out No longer eligi ble based on patient's age to complete this topic Meningococcal Vaccine Aged Out No shannon juwan eligible based on patient's age to complete this topic RSV under 20 months Aged Out No longe r eligible based on patient's age to complete this topic Rotavirus Vaccines Aged Out No longer eligible based on patient's age to complete this topic Procedures Procedure Name Priority Date/Time Associated Diagnosis Comments PROPHYLAXIS - ADULT Routine 05/22/2024 3 :00 PM EDT Dental plaque PERIODIC ORAL EVALUATION - ESTABLISHED PATIENT Routine 01/27/2021 12:00 AM EDT BITEWINGS - 4 RADIOGRAPHIC IMAGES Routine 06/18/2020 12:00 AM EDT DIAGNOSTIC - DIAGNOSTIC IMAGING - INTRAORAL - COMPREHENSIVE SERIES OF RADIOGRAPHIC IMAGES Routine 06/23/2012 12:00 AM EDT from Last 3 Months or Most Recently Relevant to Health Maintenance Insurance [facility]
--- OUTSIDE RECORDS SUMMARY | 2024-10-02 08:49 | XMS_ITS | Data Portability ---
Author Organization ANGELIC Zapien s, [address] Address [address] [place] [address] Assessment No assessment recorded. Plan of Treatment Reminders Order Date Submit Date Provider Last Modified By Organization Details Last Modified Time Details Appointments None recorded. Lab rapid flu (A+B) 2023 024 [email or web address] [facility] [address], [address] [place], [address], 4 17:04:41 SARS CoV 2 (COVID-19) Ag, QL, IA, upper respiratory specimen 2023 024 [email or web address] [facility] [address], [address] [place], [address], 4 17:04:42 urinalysis, dipstick 2023 024 [email or web address] [facility] [address], [address] [place], [address], 4 17:04:44 culture, urine 2023 024 FESSENDEN [facility] ([facility], [address] [place] [address], [place], [address], 4 06:06:26 Referral None recorded. Procedures None recorded. Surgeries None recorded. Imaging None recorded. Medication Orders ondansetron 4 mg disintegrat ing tablet 2023 024 [email or web address] Not available 17:04:33 ondansetron 4 mg disintegrat ing tablet [email or web address] [facility] #[id number], [address] [place] [address], [place], [address], 17:04:33 Patient TargetsNo targets recorded. Patient Instructions Encounter Date Encounter Id Patient Instructions Last Modified By Organization Details Last Modified Time 12/10/2023 [id number] nausea and vomiting: care instructions Not available 12/10/2023 17:04:32 nausea and vomiting: care instructions Not available 12/10/2023 17:04:47 Try small amount s of clear liquids frequently. If vomiting occurs, wait 30-60 minutes before trying clear liquids again. Once you are able to tolerate clear liquids for at least 6 hours without vomiting, you can advance to a soft diet consisting of foods such as bananas, rice, applesauce, toast, crackers, and other foods rich in carbohydrates and low on fats and spices. If the diet is tolerated for 12-24 hours, you can slowly add other foods to your diet. If vomiting occurs, you should go back to clear liquids only and work your way back to a normal diet as outlined above. If much worse, you should seek treatment immediately. [email or web address] Not available 12/10/2023 16:46:45 Reason for Referral None Reported. Results Created Date Observation Date Name Description Value Unit Range Abnormal Flag Note LastModifiedBy Organization Detail LastModifiedTime 12/10/1912/12/2023 URINE CULTU REYENI urine culture, routine FINAL REPORT Not Available [facility] ([facility]) [address] [place], [address], 12/12/2023 06:06:26 12/10/19 24 12/12/2023 URINE CULTU REYENI result 1 COMMEN T Cultu re shows less than 10,00 0 colon y formi ng units of bacte mariola per rivera liter of urine . This colon y count is not gener ally consi dered to be clini weston signi fican t. Not Available [facility] ([facility]) [address] [place] [address], [address], 12/12/2023 06:06:26 12/10/19 24 12/10/2023 urina lysis , dipst ick Unknown Analyte Normal = light yellow Not Available [facility] [facility] [address] [place], [address], 12/10/2023 16:50:53 12/10/19 24 12/10/2023 urina lysis , dipst ick Unknown Analyte Yellow Not Available [facility] [address] [place], [address], 12/10/2023 16:50:53 12/10/19 24 12/10/2023 urina lysis , dipst ick Unknown Analyte Normal = clear Not Available [address] [place], [address], 12/10/2023 16:50:53 12/10/19 24 12/10/2023 urina lysis , dipst ick Unknown Analyte Clear Not Available [facility] [address] [place], [address], 12/10/2023 16:50:53 12/10/19 24 12/10/2023 urina lysis , dipst ick Unknown Analyte Normal = negati ve Not Available [address] [place], [address], 12/10/2023 16:50:53 12/10/19 24 12/10/2023 urina lysis , dipst ick Unknown Analyte Negati ve Not Available [facility]in [address] [place], [address], 12/10/2023 16:50:53 12/10/19 24 12/10/2023 urina lysis , dipst ick Unknown Analyte Normal = Negati ve Not Available [address] [place], [address], 12/10/2023 16:50:53 12/10/19 24 12/10/2023 urina lysis , dipst ick Unknown Analyte Small Not Available [facility] [address] [place], [address], 12/10/2023 16:50:53 12/10/19 24 12/10/2023 urina lysis , dipst ick Unknown Analyte Normal = Negati ve Not Available [address] [place], [address], 12/10/2023 16:50:53 12/10/19 24 12/10/2023 urina lysis , dipst ick Unknown Analyte Negati ve Not Available [address] [place], [address], 12/10/2023 16:50:53 12/10/19 24 12/10/2023 urina lysis , dipst ick Unknown Analyte Normal = 1.010, 1.015, 1.020 Not Available [address] [place], [address], 12/10/2023 16:50:53 12/10/19 24 12/10/2023 urina lysis , dipst ick Unknown Analyte 1.030 Not Available [address] [place] [address] [address] [place], [address], 12/10/2023 16:50:53 12/10/19 24 12/10/2023 urina lysis , dipst ick Unknown Analyte Normal = Negati ve Not Available [address] [place], [address], 12/10/2023 16:50:53 12/10/19 24 12/10/2023 urina lysis , dipst ick Unknown Analyte Negati ve Not Available [address] [place], [address], 12/10/2023 16:50:53 12/10/19 24 12/10/2023 urina lysis , dipst ick Unknown Analyte Normal = 6.5, 7.0, 7.5, 8.0 Not Available [address] [place], [address], 12/10/2023 16:50:53 12/10/19 24 12/10/2023 urina lysis , dipst ick Unknown Analyte 5.5 Not Available _ [address] [place], [address], 12/10/2023 16:50:53 12/10/19 24 12/10/2023 urina lysis , dipst ick Unknown Analyte Normal = Negati ve Not Available [address] [place], [address], 12/10/2023 16:50:53 12/10/19 24 12/10/2023 urina lysis , dipst ick Unknown Analyte Negati ve Not Available [address] [place], [address], 12/10/2023 16:50:53 12/10/19 24 12/10/2023 urina lysis , dipst ick Unknown Analyte Normal = 0.2, 1.0 Not Available [address] [place], [address], 12/10/2023 16:50:53 12/10/19 24 12/10/2023 urina lysis , dipst ick Unknown Analyte Normal = Negati ve Not Available [address] [place], [address], 12/10/2023 16:50:53 12/10/19 24 12/10/2023 urina lysis , dipst ick Unknown Analyte Negati ve Not Available [address] [place], [address], 12/10/2023 16:50:53 12/10/19 24 12/10/2023 urina lysis , dipst ick Unknown Analyte Normal = Negati ve Not Available [address]i [address] [place], [address], 12/10/2023 16:50:53 12/10/19 24 12/10/2023 urina lysis , dipst ick Unknown Analyte Negati ve Not Available [address] [place], [address], 12/10/2023 16:50:53 12/10/19 24 12/10/2023 urina lysis , dipst ick Unknown Analyte 0.2 E.U./d L Not Available [address] [place], [address], 12/10/2023 16:50:53 12/10/19 24 12/10/2023 SARS CoV 2 (COVI D-19) Ag, QL, [place], upper respi rator y speci men Unknown Analyte negati ve Not Available [address] [place], [address], 12/10/2023 16:50:43 12/10/19 24 12/10/2023 SARS CoV 2 (COVI D-19) Ag, QL, IA, upper respi rator y speci men Unknown Analyte yes Not Available [facility] [address] [place], [address], 12/10/2023 16:50:43 12/10/19 24 12/10/2023 rapid flu (A+B) Unknown Analyte negati ve Not Available [address] [place], [address], 12/10/2023 16:50:34 12/10/19 24 12/10/2023 rapid flu (A+B) Unknown Analyte negati ve Not Available [address] [place], [address], 12/10/2023 16:50:34 12/10/19 24 12/10/2023 rapid flu (A+B) Unknown Analyte Not Available [address] [address] [place], [address], 12/10/2023 16:50:34 Result Notes None recorded. Problems Name Problem SNOMED Code Status Onset Date Resolution Date Notes Provider Name and Address Organization Details Recorded Time Fibromyalgia 773309446 Active ANGELIC Barragan [facility] 4 16:49:49 Disorder of thyroid gland 47901279 Active ANGELIC Barragan [facility] 4 16:50:00 Problem Notes None recorded. Medical Equipment None Reported. Allergies Allergen ID Allergen Name Allergen Category Reaction Reaction Severity Criticality Documentation Date Start Date Code Code System Note Provider Name and Address Organization Details Recorded Time 722230 Toradol medicatio n Not available Not available Not available 12/10/2023 21647 RxNorm Yesenia jensen [place] [facility] 4 16:49:03 Medications Name Sig Start Date Stop Date Status Note LastModified by Organization Details LastModified Time ondansetron 4 mg disintegrating tablet 1 po s 8 h prn nausea active Not Available Not Available No t Available levothyroxine 112 mcg tablet TAKE 1 TABLET BY MOUTH EVERY DAY active Not Available Not Available No t Available duloxetine 60 mg capsule,delayed release TAKE 1 CAPSULE BY MOUTH EVERY DAY active Not Available Not Available No t Available eszopiclone 2 mg tablet TAKE 1 TABLET BY MOUTH EVERY NIGHT AT BEDTIME. DO NOT CHEW OR BREAK TABS. active Not Available Not Available No t Available levothyroxine active Not Available Not Available Not Available duloxetine active Not Available Not Av ailable Not Available Lunesta active Not Available Not Avail able Not Available Purelax 17 gram/dose oral powder TAKE 17 GM BY MOUTH DAILY active Not Available Not Available No t Available Vitals Date Recorded Body height Provider Name an d Address Organization Details Last Updated DateTime 12/10/2023 162.56 cm Yesenia Naidu PA - [facility] 12/10/2023 16:47:43 Date Recorded Body weight Provider Name an d Address Organization Details Last Updated DateTime 12/10/2023 02517.74 g Yesenia Naidu PA - [facility] 12/10/2023 16:47:46 Date Recorded Oxygen saturation Oxygen saturation in Arterial blood by Pulse oximetry Provider Name and Address Organization Details Last Updated DateTime 12/10/2023 99 % 99 % Yesenia Naidu PA - [facility] 12/10/2023 16:47:55 Date Recorded Heart rate Respiratory rate Provider N sobia and Address Organization Details Last Updated DateTime 12/10/2023 91 /min 18 /min Yesenia Naidu PA - [facility] 12/10/2023 16:48:01 Date Recorded Body temperature Provider Name a nd Address Organization Details Last Updated DateTime 12/10/2023 96.2 [degF] Yesenia Naidu PA - [facility] 12/10/2023 16:48:04 Date Recorded Body height Provider Name an d Address Organization Details Last Updated DateTime 12/17/2023 162.56 cm Bia Rosenberg PA - [facility] 12/17/2023 13:11:03 Date Recorded Body mass index (BMI) Body weight Provider Name and Address Organization Details Last Updated DateTime 12/17/2023 27.5 kg/m2 36002.78 g Bia Rosenberg PA - [facility] 12/17/2023 13:11:55 Date Recorded Oxygen saturation Oxygen saturation in Arterial blood by Pulse oximetry Provider Name and Address Organization Details Last Updated DateTime 12/17/2023 96 % 96 % Bia Rosenberg PA - [facility] 12/17/2023 13:14:18 Date Recorded Heart rate Provider Name an d Address Organization Details Last Updated DateTime 12/17/2023 84 /min Bia ShakilaCliffordKush PA - [facility] 12/17/2023 13:14:25 Date Recorded Respiratory rate Provider Name a nd Address Organization Details Last Updated DateTime 12/17/2023 18 /min Bia ScottKush PA - [facility] 12/17/2023 13:14:30 Date Recorded Body temperature Provider Name a nd Address Organization Details Last Updated DateTime 12/17/2023 97.4 [degF] Bia ShakilaCliffordKush PA - [facility] 12/17/2023 13:14:45 Date Recorded Systolic blood pressure Diastolic blood pressure Provider Name and Address Organization Details Last Updated DateTime 12/10/2023 116 mm[Hg] 77 mm[Hg] Yesenia Naidu PA - [facility] 12/10/2023 16:47:53 Date Recorded Systolic blood pressure Diastolic blood pressure Provider Name and Address Organization Details Last Updated DateTime 12/17/2023 101 mm[Hg] 68 mm[Hg] Bia ShakilalCiffordKush PA - [facility] 12/17/2023 13:14:07 Social History Question Answer Notes LastModified by Organizat ion Details LastModified Time Tobacco Smoking Status Never Smoker Yesenia Naidu null, PA - [facility] 12/10/2023 16:50:21 What Is Your Level Of Alcohol Consumption? None Information not available 12/10/2023 Are You Currently Employed? Yes Information not available 12/17/2023 Have You Had A Flu Shot This Season? Yes Information not available 12/17/2023 What Was The Date Of Your Most Recent Tobacco Screening? 12/10/2023 Information not available 12/10/2023 What Is Your Relationship Status? Single Information not available 12/17/2023 Are You Currently In School? No Information not available 12/17/2023 Do You Or Have You Ever Used Any Other Forms Of Tobacco Or Nicotine? No [email or web address] Information not available 12/10/2023 Sex: Unknown Functional Status None recorded. Mental Status None recorded. Family History Relationship Description Onset Age of this Age Resolved Age Notes LastModified by Organization Details LastModified Time Father No current problems or disability Not available 02/2024 16:50:10 Mother No current problems or disability Not available 02/2024 16:50:10 Medical History No medical history recorded. Gynecological HistoryNo gynecological history recorded. Obstetrics History GPAL:G 0 P 0 0 0 0 Past Encounters Encounter ID Performer Location Encounter Start Date Encounter Closed Date Diagnosis/Indication Diagnosis SNOMED-CT Code Diagnosis ICD10 Code Diagnosis Note [id number] [address] [facility] [place] [id number] 2019 15:06:30 2019 17:03:48 [id number] [address] [place] [id number] 05/17/2021 10:22:51 05/17/2021 13:44:56 [id number] [address] [place] [id number] 11/27/2018 13:40:56 11/27/2018 14:23:10 [id number] [facility] [address] [place] [id number] 02/18/2020 10:11:47 02/18/2020 11:06:53 [id number] [place] [address] [place] [address] 12/10/2023 16:29:01 12/10/2023 17:29:38 Nausea and vomiting 87194902 R11.2 VSS and she does not have an acute abdomend/w pt viral gastroente ritis v food poisoningu sually self limiting 24-48 hrecommend sips of fluids q 5-10 min , may slowly advance to bland diet after no vomiting x 4 hrest, fluids as above tylenol prn pain/fever d/w her limitation s of Dx and treating abdominal pain in acute care setting.No imaging available f/u for unable to take PO X 24-48 h, decreased UOP or worsening abdominal pain , high fevers or worsening Sx Discussed concerning red flags with patient and reasons to follow up in the Emergency Department urgently. Patient expressed understand ing of and agreement with the plan as outlined above. [id number] ANGELIC Barr [address] [facility] [address] [facility] [place] [id number] 12/17/2023 13:01:46 12/17/2023 13:29:02 Viral gastroenteritis [id number] A08.4 Based on you exam and presentati on I am diagnosing you with a viral gastroente ritis. This should resolve on its own without any interventi on in 1-5 days. This may be contagious to try and avoid family members while you are sick. Use a seperate bathroom if possible. These are my recommenda tions to help with your symptoms and help you recover:1. Drink plenty of fluid and stay hydrated.2 . Wash hands and home surfaces regularly. 3. Do not share food or drinks4. Try to eat foods like toast, chicken broth, bananas.5. Stay away from Gatorade, but you can drink pedialyte, soda, or water.6. Avoid Dairy I would be seen again if you develop:1. Severe abdominal pain2. Vomiting more than 48 hours3. Fever > 101.04. Blood in Stool5. Blood in Urine. Thank you for using [employer] , please feel free to contact us if you have any questions or concerns. Health Concerns Section Related Observation LastModified by Organization Detai ls LastModified Time None Recorded Concern Status LastModified by Organization Details LastModified Time None Recorded Advance Directives Directive None Recorded Payers Encounter Date Sequence Insurance Name Policy Number Policy Capps Covered Member ID Capps Member ID Guarantor Name 2019 1 [facility] (O) [id number] Bianca E Dorian [id number] Bianca Dorian-Men cezar 02/18/2020 1 [facility] (O) [id number] Bianca E Dorian [id number] Bianca Dorian-Men cezar 05/17/2021 1 [facility] [employer] (O) [id number] Bianca E Dorian [id number] Bianca Dorian-Men cezar 12/10/2023 1 [employer] [facility] [facility] (EPO) [id number] Bianca Dorian [id number] Bianca Dorian-Men cezar 12/17/2023 1 [employer] [facility] [place] [facility] [place] [id number] Bianca Dorian [id number] [employer] Al[place]con-Men cezar Notes Date Note Type Note Provider Name and Address Organization Details Recorded Time 12/10/2023 text/html Nausea / Vomitin g UCReported bypatient.Notes:58 yo female c/o nausea, abdominal pain x 1 dconstipation x 1 dvomiting x 8 times since this morningstarted after eating a tuna sandwich no blood in 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 no BM today. no bleeding AB pain across lower abdomen - crampy/colic no h/o abdominal surgery in the past No fever+ chillsNo coughNo wheezeNo difficulty breathing or respiratory distressNo CPNo congestionNo sinus painNo ear painNo sore throatNo Abdominal painNo diarrheaNo myalgiaNo fatigueNo rashNo HANo dizziness - endorses feeling LHNo recent travelNo known sick contacts Royal Whitlock DO [address] [place], [address], PA - [employer] 12/10/2023 17:13:10 12/17/2023 text/html 58 y/o female he re with continued abdominal pain with gastro virus starting last week. Starting to feel a bit better, but wants to make sure she's on the right past ANGELIC Barr [address] [place], [address], PA [facility] 12/17/2023 13:27:00 OBGyn Episode No OBEpisode recorded.
--- OUTSIDE RECORDS SUMMARY | 2024-10-02 08:49 | XMS_ITS | Continuity of Care Document ---
Author Organization [facility] Address [address] [place] [address] Phone Care Team Providers Care Hospitality Specialist Name Role Phone Ezekiel Cobian MD, [...] Copied on Encounter [facility] , [address] [place] [address], [address], [place] tel:[phone] [facility] No Information 4 Mango Matthews. [address] [place] [address], [id number] , [place]. tel:[phone] [facility] , [address] [place] [address], [address], [place] tel:[phone] [facility] No Information 3 Mango Matthews. [address] [place] [address], [id number] , [place]. tel:[phone] [facility] , [address] [place] [address], [facility], [place] tel:[phone] [facility] No Information 3 Mango Matthews. [address] [place] [address], [id number] , [place]. tel:[phone] Referring Provider: PCP No. [facility] , [address] [place] [address], [facility], [place] tel:[phone] [facility] No Information 3 Mango Matthews. [address] [place] [address], [id number] , [place]. tel:[phone] Referring Provider: Cassie Churchill, [address] [place] [address], [address] . tel:[phone] New Pt Ov Level 4 [facility] , [address] [place] [address], [address], [place] tel:[phone] [facility] Body mass index (BMI) 28.0-28.9, adultObstructive sleep apnea (adult) (pediatric)Psychophy siologic insomniaFibromyalgia Apr- 3 Mango Matthews. [address] [place] [address], [id number] , [place]. tel:[phone] Referring Provider: Marleny franks MD, [address] [place], [address]. tel:[phone] Family History Family Member Type Diagnosis Age [...] Covered constitution party ID Clive keys(s) [id number] Social History Type Description Quantity Date Captured [...]
--- OUTSIDE RECORDS SUMMARY | 2024-10-02 08:49 | XMS_ITS | Encounter Summary ---
Author Organization [employer] [facility] Address [address] [place] [address] [address] [place] [address] Care Team Providers Care Grocery Caddy Name Role Phone Unavailable Primary Care Provider Unavailabl e Encounter Details Date Type Department Care Team (Latest Contact Info) Description 11/15/2018 Abstract [facility] Dental, Provider, DDS Social History Tobacco Use Types Packs/Day Years Used Date Smoking Tobacco: Never Assessed Comments Unknown Sex and Gender Information Value Date Recorded Sex Assigned at Female 07/05/2022 10:20 AM EDT Legal Sex Female 10:20 AM EDT Gender Identity Female 07/05/2022 10:20 AM EDT Sexual Orientation Choose not to disclose 2021 10:20 AM EDT documented as of this encounter Plan of Treatment Upcoming Encounters Date Type Department Care Team ( st Contact Info) Description 11/26/2024 2:00 PM EDT Office Visit [facility] [address] [place] [address] Ricardo Rocio [address] [place] [address] documented as of this encounter Visit Diagnoses Not on filedocumented in this encounter
--- OUTSIDE RECORDS SUMMARY | 2024-10-02 08:49 | XMS_ITS | Encounter Summary ---
Author Organization [employer] [facility] Address [address] [facility] [address] [place] [address] Care Team Providers Care Scientific Research Manager Name Role Phone Unavailable Primary Care Provider Unavailabl e Encounter Details Date Type Department Care Team (Latest Contact Info) Description 06/18/2020 Abstract [facility] Dental, Provider, DDS Social History [...] Description 11/26/2024 2:00 PM EDT Office Visit [facility] [address] [place] [address] Ricardo Rocio [address] [place] [address] documented as of this encounter Visit Diagnoses Not on filedocumented in this encounter
== END ==
LOC: HO.NUCMED 08:26
PROVIDERS: Visit Provider Nurse Practitioner
DX: K31.84 Gastroparesis (principal)
CPT/HCPCS: 78264; A9541

== ENCOUNTER → 2024-10-02 08:27 | Outpatient (BNV) | payer OTHER, SELFPAY | PROVIDERS: Visit Provider Radiology Diagnostic Radiology | DX: K31.84 Gastroparesis (principal) | CPT/HCPCS: 78264 ==

== ENCOUNTER 2024-10-26 14:22 | Outpatient (AMB) | payer OTHER, SELFPAY ==
--- NOTE | 2024-10-26 14:25 | MHC.OFFVIS ---
Vital Signs 10/26/24 14:26 Height 5 ft 4 in Weight 155 lb BMI 26.6 BP 97/60 Blood Pressure Location Lt brachial Position Sitting Pulse 88 Pulse Source Doppler Pulse Oximetry (%) 98 Oxygen Delivery Method Room Air Intake Visit Reasons: shortness of breath Allergies ketorolac Allergy (Unknown, Verified 10/26/24 14:29) anaphylaxis HPI HPI shortness of breath: Details: 59-year-old lady followed for underlying moderate obstructive sleep apnea on CPAP therapy and primary insomnia previously on Lunesta and gabapentin with suboptimal response. [facility] Medical History (Updated 09/14/24 @ 10:40 by VERNA Parker) Esophagitis Sleep apnea Urinary incontinence Elevated cholesterol Fibromyalgia Hypothyroid Diabetes GERD (gastroesophageal reflux disease) Surgical History H/O colonoscopy History of section Hx of tonsillectomy Family History Maternal Aunt Diverticulosis Paternal Aunt H/O colectomy Social History Alcohol intake: never Patient Tobacco Use Status: Never used Tobacco Review of Systems Const Denies daytime sleepiness, Denies excessive sweating, Denies fatigue, Denies fever(s), Denies lethargy, Denies malaise, Denies night sweats, Denies snoring and Denies weight loss Eyes Denies blurry vision and Denies itchy eyes ENT Denies nasal congestion, Denies post nasal drip, Denies sinus pain, Denies sinus pressure and Denies other ( Thrush) Card Denies chest pain, Denies pedal edema, Denies dyspnea, Denies orthopnea and Denies paroxysmal nocturnal dyspnea Resp Denies cough, Denies hemoptysis, Denies excessive phlegm production, Denies dyspnea, Denies snoring and Denies wheezing GI Denies abdominal pain and Denies heartburn Musc Denies myalgias, Denies arthralgias and Denies joint swelling Skin/Breast Denies rash Neuro Denies memory loss and Denies seizure-like activity Psych Denies abnormal sleep pattern, Denies anxiety and Denies memory loss Endo Denies excessive sweating, Denies fatigue and Denies heat intolerance Johan/Lymph Denies easy bruising Aller/Immun Denies itchy eyes, Denies seasonal rhinorrhea and Denies wheezing Physical Exam Vital Signs: Last Vital Signs Pulse 88 10/26/24 14:26 BP 97/60 10/26/24 14:26 Pulse Ox 98 10/26/24 14:26 Oxygen Delivery Method Room Air 10/26/24 14:26 BMI result Body Mass Index 26.6 Const General: no acute distress and alert Nutritional Appearance: not obese Orientation/consciousness: Other orientation findings ( oriented) HEENT Head: Yes atraumatic Eyes General: appearance normal, both eyes and all related structures Sclerae: sclerae normal EOM: EOMs intact bilaterally Neck Neck: Yes supple Lymphatic: no lymphadenopathy noted Resp Effort & Inspection: normal respiratory effort and no use of accessory muscles Auscultation: clear to auscultation bilaterally Cardio Rate: regular rate Rhythm: regular rhythm Heart sounds: no gallops, no murmurs and no rubs Skin General skin exam: other ( warm) Extrem General: No clubbing, No cyanosis and No edema Assessment & Plan Assessment & Plan (1) PARMJIT (obstructive sleep apnea): Code(s): G47.33 - Obstructive sleep apnea (adult) (pediatric) Category: Medical Plan: Well controlled on current CPAP therapy. Continue CPAP therapy. Therapy and compliance report reviewed - patient is benefitting from and is compliant with noninvasive positive pressure ventilation treatment, using it greater than 70% of the time, more than 4 hours per night. (2) Primary insomnia: Code(s): F51.01 - Primary insomnia Category: Medical Plan: Suboptimal control on as or gabapentin. Will try on Ambien. Medications: New zolpidem (Ambien) 10 mg PO BEDTIME PRN 30 tabs 3RF sleep Coding Level of Care Code Est Pt Level 4 (26092) Diagnoses PARMJIT (obstructive sleep apnea) G47.33 Primary insomnia F51.01
[2024-10-26 14:26] VITALS: BP 97/60; PULSE 88; O2SAT 98; BMI 26.6
--- OUTSIDE RECORDS SUMMARY | 2024-10-26 14:46 | XMS_ITS | Data Portability ---
Author Organization ANGELIC Zapien s, [address] Address [address] [place] [address] Assessment No assessment recorded. Plan of Treatment Reminders Order Date Submit Date Provider Last Modified By Organization Details Last Modified Time Details Appointments None recorded. Lab rapid flu (A+B) 2023 024 [email or web address] [address] [address], [address] [place], [address], 4 17:04:41 SARS CoV 2 (COVID-19) Ag, QL, IA, upper respiratory specimen 2023 024 [email or web address] [facility] [address], [address] [place], [address], 4 17:04:42 urinalysis, dipstick 2023 024 [email or web address] [address] [address], [address] [place], [address], 4 17:04:44 culture, urine 2023 024 [email or web address] [facility] ([facility], [address] [place] [address], [place], [address], 4 06:06:26 Referral None recorded. Procedures None recorded. Surgeries None recorded. Imaging None recorded. Medication Orders ondansetron 4 mg disintegrat ing tablet 2023 024 [email or web address] Not available 17:04:33 ondansetron 4 mg disintegrat ing tablet 2023 024 [email or web address] [facility] #[id number], [address] [place] [address], [place], [address], 17:04:33 Patient TargetsNo targets recorded. Patient Instructions Encounter Date Encounter Id Patient Instructions Last Modified By Organization Details Last Modified Time 12/10/2023 [id number] nausea and vomiting: care instructions Not available [...] much worse, you should seek treatment immediately. Not available 12/10/2023 16:46:45 Reason for Referral None Reported. Results Created Date Observation Date Name Description Value Unit Range Abnormal Flag Note LastModifiedBy Organization Detail LastModifiedTime 12/10/1912/12/2023 URINE CULTU REYENI urine culture, routine FINAL REPORT Not Available [facility] ([facility]) [address] [place], [address], 12/12/2023 06:06:26 12/10/19 24 12/12/2023 URINE CULTU REYENI result 1 COMMEN T Cultu re shows less than 10,00 0 colon y formi ng units of bacte mariola per rivera liter of urine . This colon y count is not gener ally consi dered to be clini weston signi fican t. Not Available [facility] ([facility]) [address] [place] [address], [address], 12/12/2023 06:06:26 12/10/19 24 12/10/2023 urina lysis , dipst ick Unknown Analyte Normal = light yellow Not Available [facility] [address] [address] [place], [address], 12/10/2023 16:50:53 12/10/19 24 12/10/2023 urina lysis , dipst ick Unknown Analyte Yellow Not Available [facility] [address] [place], [address], 12/10/2023 16:50:53 12/10/19 24 12/10/2023 urina lysis , dipst ick Unknown Analyte Normal = clear Not Available [address] [place], [address], 12/10/2023 16:50:53 12/10/19 24 12/10/2023 urina lysis , dipst ick Unknown Analyte Clear Not Available [facility] [address] [place], [address], 12/10/2023 16:50:53 12/10/19 24 12/10/2023 urina lysis , dipst ick Unknown Analyte Normal = negati ve Not Available [address] [place], [address], 12/10/2023 16:50:53 12/10/19 24 12/10/2023 urina lysis , dipst ick Unknown Analyte Negati ve Not Available [facility] [address] [place], [address], 12/10/2023 16:50:53 12/10/19 24 12/10/2023 urina lysis , dipst ick Unknown Analyte Normal = Negati ve Not Available [address] [place], [address], 12/10/2023 16:50:53 12/10/19 24 12/10/2023 urina lysis , dipst ick Unknown Analyte Small Not Available [facility] [address] [place], [address], 12/10/2023 16:50:53 12/10/19 24 12/10/2023 urina lysis , dipst ick Unknown Analyte Normal = Negati ve Not Available [address] [place], [address], 12/10/2023 16:50:53 12/10/19 24 12/10/2023 urina lysis , dipst ick Unknown Analyte Negati ve Not Available [address] [place], [address], 12/10/2023 16:50:53 12/10/19 24 12/10/2023 urina lysis , dipst ick Unknown Analyte Normal = 1.010, 1.015, 1.020 Not Available [address] [place], [address], 12/10/2023 16:50:53 12/10/19 24 12/10/2023 urina lysis , dipst ick Unknown Analyte 1.030 Not Available [address] [place] [address] [address] [place], [address], 12/10/2023 16:50:53 12/10/19 24 12/10/2023 urina lysis , dipst ick Unknown Analyte Normal = Negati ve Not Available [address] [place], [address], 12/10/2023 16:50:53 12/10/19 24 12/10/2023 urina lysis , dipst ick Unknown Analyte Negati ve Not Available [address] [place], [address], 12/10/2023 16:50:53 12/10/19 24 12/10/2023 urina lysis , dipst ick Unknown Analyte Normal = 6.5, 7.0, 7.5, 8.0 Not Available [address] [place], [address], 12/10/2023 16:50:53 12/10/19 24 12/10/2023 urina lysis , dipst ick Unknown Analyte 5.5 Not Available _ [address] [address] [place], [address], 12/10/2023 16:50:53 12/10/19 24 12/10/2023 urina lysis , dipst ick Unknown Analyte Normal = Negati ve Not Available [address] [place], [address], 12/10/2023 16:50:53 12/10/19 24 12/10/2023 urina lysis , dipst ick Unknown Analyte Negati ve Not Available [address] [place], [address], 12/10/2023 16:50:53 12/10/19 24 12/10/2023 urina lysis , dipst ick Unknown Analyte Normal = 0.2, 1.0 Not Available [address] [place], [address], 12/10/2023 16:50:53 12/10/19 24 12/10/2023 urina lysis , dipst ick Unknown Analyte Normal = Negati ve Not Available [address] [place], [address], 12/10/2023 16:50:53 12/10/19 24 12/10/2023 urina lysis , dipst ick Unknown Analyte Negati ve Not Available [address] [place], [address], 12/10/2023 16:50:53 12/10/19 24 12/10/2023 urina lysis , dipst ick Unknown Analyte Normal = Negati ve Not Available [address] [place], [address], 12/10/2023 16:50:53 12/10/19 24 12/10/2023 urina lysis , dipst ick Unknown Analyte Negati ve Not Available [address] [place], [address], 12/10/2023 16:50:53 12/10/19 24 12/10/2023 urina lysis , dipst ick Unknown Analyte 0.2 E.U./d L Not Available [address] [place], [address], 12/10/2023 16:50:53 12/10/19 24 12/10/2023 SARS CoV 2 (COVI D-19) Ag, QL, IA, upper respi rator y speci men Unknown Analyte negati ve Not Available [address] [place], [address], 12/10/2023 16:50:43 12/10/19 24 12/10/2023 SARS CoV 2 (COVI D-19) Ag, QL, IA, upper respi rator y speci men Unknown Analyte yes Not Available [facility] [address] [place], [address], 12/10/2023 16:50:43 12/10/19 24 12/10/2023 rapid flu (A+B) Unknown Analyte negati ve Not Available [address] [place], [address], 12/10/2023 16:50:34 12/10/19 24 12/10/2023 rapid flu (A+B) Unknown Analyte negati ve Not Available [address] [place], [address], 12/10/2023 16:50:34 12/10/19 24 12/10/2023 rapid flu (A+B) Unknown Analyte Not Available [address] [facility] [address] [place], [address], 12/10/2023 16:50:34 Result Notes None recorded. Problems Name Problem SNOMED Code Status Onset Date Resolution Date Notes Provider Name and Address Organization Details Recorded Time Fibromyalgia 300666497 Active ANGELIC Barragan [facility] 4 16:49:49 Disorder of thyroid gland 83353976 Active ANGELIC Barragan [facility] 4 16:50:00 Problem Notes None recorded. Medical Equipment None Reported. Allergies Allergen ID Allergen Name Allergen Category Reaction Reaction Severity Criticality Documentation Date Start Date Code Code System Note Provider Name and Address Organization Details Recorded Time 165647 Toradol medicatio n Not available Not available Not available 12/10/2023 86247 RxNorm Yesenia jensen [place] [facility] [...] t Available Vitals Date Recorded Body height Body weight Oxygen saturation Oxygen saturation in Arterial blood by Pulse oximetry Heart rate Respiratory rate Body temperature Systolic blood pressure Diastolic blood pressure Provider Name and Address Organization Details Last Updated DateTime 4 162.56 cm 61475.7 4 g 99 % 99 % 91 /min 18 /min 96.2 [degF] 116 mm[Hg] 77 mm[Hg] Yesenia Naidu [place] - [facility] 16:47:53 Date Recorded Body height Body mass index (BMI) Body weight Oxygen saturation Oxygen saturation in Arterial blood by Pulse oximetry Heart rate Respiratory rate Body temperature Systolic blood pressure Diastolic blood pressure Provider Name and Address Organization Details Last Updated DateTime 4 162.56 cm 27.5 kg/m2 79603.7 8 g 96 % 96 % 84 /min 18 /min 97.4 [degF] 101 mm[Hg] 68 mm[Hg] Bia Rosenberg [facility] 13:14:07 Social History Question Answer Notes LastModified by Organizat ion Details LastModified Time Tobacco Smoking Status Never Smoker Yesenia jensen [place] - [facility] 12/10/2023 16:50:21 What Is Your Level Of Alcohol Consumption? None [email or web address] Information not available 12/10/2023 Are You Currently Employed? Yes Information not available 12/17/2023 Have You Had A Flu Shot This Season? Yes Information not available 12/17/2023 What Was The Date Of Your Most Recent Tobacco Screening? 12/10/2023 [email or web address] Information not available 12/10/2023 What Is Your Relationship Status? Single Information not available 12/17/2023 Are You Currently In School? No Information not available 12/17/2023 Do You Or Have You Ever Used Any Other Forms Of Tobacco Or Nicotine? No [email or web address] Information not available 12/10/2023 Sex: Unknown Functional Status None recorded. Mental Status None recorded. Family History Relationship Description Onset Age of this Age Resolved Age Notes LastModified by Organization Details LastModified Time Father No current problems or disability [email or web address] Not available 02/2024 16:50:10 Mother No current problems or disability [email or web address] Not available 02/2024 16:50:10 Medical History No medical history recorded. Gynecological HistoryNo gynecological history recorded. Obstetrics History GPAL:G 0 P 0 0 0 0 Past Encounters Encounter ID Performer Location Encounter Start Date Encounter Closed Date Diagnosis/Indication Diagnosis SNOMED-CT Code Diagnosis ICD10 Code Diagnosis Note [id number] [address] [place] [phone] 0 2019 15:06:30 2019 17:03:48 [id number] Freddie5_Eduar [facility] [address] [place] [phone] 0 05/17/2021 10:22:51 05/17/2021 13:44:56 [id number] [address] [address] [address] [place] [phone] 0 11/27/2018 13:40:56 11/27/2018 14:23:10 [id number] [facility] [address] [place] [phone] 02/18/2020 10:11:47 02/18/2020 11:06:53 [id number] [place] [address] [place] [address] 12/10/2023 16:29:01 12/10/2023 17:29:38 Nausea and vomiting 10958776 R11.2 VSS and she does not have [...] agreement with the plan as outlined above. [id number] ANGELIC Barr [address] [facility] [address] [facility] [place] kong [id number] 12/17/2023 13:01:46 12/17/2023 13:29:02 Viral gastroenteritis 563925095 A08.4 Based on you exam and presentati [...] Blood in Urine. Thank you for using [facility] , please feel free to contact us if you have any questions or concerns. Health Concerns Section Related Observation LastModified by Organization Detai ls LastModified Time None Recorded Concern Status LastModified by Organization Details LastModified Time None Recorded Advance Directives Directive None Recorded Payers Encounter Date Sequence Insurance Name Policy Number Policy Capps Covered Member ID Capps Member ID Guarantor Name 2019 1 [facility] ([facility] [id number] Bianca E Dorian [id number] Bianca Dorian-Men cezar 02/18/2020 1 [facility] (O) [id number] Bianca E Dorian [id number] Bianca Dorian-Men cezar 05/17/2021 1 [facility] ([facility] [id number] Bianca E Dorian [id number] Bianca Alarcon-Venecia cezar 12/10/2023 1 [employer] [place] (EPO) [id number] Biancamark Hamiltonz [id number] Bianca Hamiltonz-Men cezar 12/17/2023 1 [employer] ([place]PO) [id number] Biancamark Alarcon [id number] Bianca Alarcon-Venecia cezar Notes Date Note Type Note Provider Name and Address Organization Details Recorded Time 12/10/2023 text/html Nausea / Vomitin g UCReported bypatient.Notes:58 yo female c/o nausea, abdominal pain x 1 dconstipation x 1 dvomiting x 8 times since this morningstarted after eating a tuna sandwich no blood in vomit 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 no [...] Royal Whitlock DO [address] [place], [address], PA - [facility] 12/10/2023 17:13:10 12/17/2023 text/html 58 y/o female he re with continued abdominal pain with gastro virus starting last week. Starting to feel a bit better, but wants to make sure she's on the right past ANGELIC Barr [address] [place], [address], [place] - [facility] 12/17/2023 13:27:00 OBGyn Episode No OBEpisode recorded.
--- OUTSIDE RECORDS SUMMARY | 2024-10-26 14:46 | XMS_ITS | Encounter Summary ---
Author Organization [facility] Address [address] [place] [address] Care Team Providers Care Registered Nurse Obstetrics Name Role Phone Unavailable Primary Care Provider Unavailabl e Encounter Details Date Type Department Care Team (Latest Contact Info) Description 06/18/2020 Abstract [facility] CONVERSIONS Dental, Provider, DDS Social History Tobacco [...] Description 11/26/2024 2:00 PM EDT Office Visit [facility] ADULT DENTAL [address] [place] [address] Ricardo Rocio [address] [place] [address] documented as of this encounter Visit Diagnoses Not on filedocumented in this encounter
--- OUTSIDE RECORDS SUMMARY | 2024-10-26 14:46 | XMS_ITS | Encounter Summary ---
Author Organization [facility] Address [address] [place] [address] [address] [place] [address] Care Team Providers Care Family Services Manager Name Role Phone Unavailable Primary Care Provider Unavailabl e Encounter Details Date Type Department Care Team (Latest Contact Info) Description 11/15/2018 Abstract [facility] CONVERSIONS Dental, Provider, DDS Social History [...] Description 11/26/2024 2:00 PM EDT Office Visit [facility] ADULT [facility] [address] [place] [address] Ricardo Rocio [address] [place] [address] documented as of this encounter Visit Diagnoses Not on filedocumented in this encounter
--- OUTSIDE RECORDS SUMMARY | 2024-10-26 14:46 | XMS_ITS | Clinical Summary ---
Author Organization [employer] Address [address] [facility] [address] [place] [address] Care Team Providers Care Yard Conductor Name Role Phone Unavailable Primary Care Provider [...] Type Department Care Team Description 08/16/2024 Telephone [facility] [address] [place] [address] Rocio Silva from Last 3 Months Social [...] Description 11/26/2024 2:00 PM EDT Office Visit [facility] [address] [place] [address] Ricardo, Rocio [address] [place] [address] Health Maintenance Due Date Last Done Comments [...] Zoster Vaccines Completed 09/03/2021, 05/09/2021 Pneumococcal Vaccine: 50+ Years Completed 07/18/2023 Pneumococcal Vaccine: Pediatrics (0 to 5 Years) and At-Risk Patients (6 to 49) Years) Aged Out 07/18/2023 No longer eligible [...] RADIOGRAPHIC IMAGES Routine 06/18/2020 12:00 AM EDT INTRAORAL - COMPLETE SERIES OF RADIOGRAPHIC IMAGES Routine 06/23/2012 12:00 AM EDT from Last 3 Months or Most Recently Relevant to Health Maintenance Insurance [facility]
--- OUTSIDE RECORDS SUMMARY | 2024-10-26 14:46 | XMS_ITS | Continuity of Care Document ---
Author Organization [facility] Address [address] [place] [address] Phone Care Team Providers Care Journeyman Mechanic Name Role Phone Ezekiel Cobian MD, ABSKerline, [...] Copied on Encounter [facility] , [address] [place] [address], [id number], [place] tel:[phone] [facility] No Information 4 Mango Matthews. [address] [place] [address], [id number] , [place]. tel:[phone] [facility] , [address] [place] [address], [address], [place] tel:[phone] [facility] No Information 3 Mango Matthews. [address] [place] [address], [id number] , [place]. tel:[phone] [facility] , [address] [place] [address], [facility], [place] tel:[phone] [facility] No Information 3 Mango Matthews. [address] [place] [address], [id number] , [place]. tel:[phone] Referring Provider: PCP No. [facility] , [address] [place] [address], [facility], [place] tel:[phone] [facility] No Information 3 Mango Matthews. [address] [place] [address], [id number] , [place]. tel:[phone] Referring Provider: Cassie Churchill, [address] [place] [address], [id number] . tel:[phone] New Pt Ov Level 4 [facility] , [address] [place] [address], [address], [place] tel:[phone] [facility] Body mass index (BMI) 28.0-28.9, adultObstructive sleep apnea (adult) (pediatric)Psychophy siologic insomniaFibromyalgia Apr- 3 Mango Matthews. [address] [place] [address], [id number] , [place]. tel:[phone] Referring Provider: Marleny franks MD, [address] [place], [address]. tel:[phone] Family History Family Member Type Diagnosis Age [...] type Covered democrat ID Clive keys(s) [employer] [id number] Social History Type Description Quantity Date Captured [...]
== END 2024-10-26 14:57 | disposition home or self-care (01) ==
PROVIDERS: PCP Nurse Practitioner Family; Visit Provider Internal Medicine Pulmonary Disease
DX: G47.33 Obstructive sleep apnea (adult) (pediatric) (principal); F51.01 Primary insomnia
CPT/HCPCS: 99214

== ENCOUNTER 2024-11-17 09:17 | Outpatient (REF) | payer OTHER, SELFPAY ==
--- OUTSIDE RECORDS SUMMARY | 2024-11-17 09:20 | XMS_ITS | Data Portability ---
Author Organization ANGELIC Zapien s, [address] Address [address] [place] [address] Assessment No assessment recorded. Plan of Treatment Reminders Order Date Submit Date Provider Last Modified By Organization Details Last Modified Time Details Appointments None recorded. Lab rapid flu (A+B) 2023 024 [email or web address] [facility], [address] [place], [address], 4 17:04:41 SARS CoV 2 (COVID-19) Ag, QL, IA, upper respiratory specimen 2023 024 [email or web address] [facility], [address] [place], [address], 4 17:04:42 urinalysis, dipstick 2023 024 [email or web address] [facility], [address] [place], [address], 4 17:04:44 culture, urine 2023 024 BERKELEY [facility] ([facility], [address] [place] [address], [place], [address], 4 06:06:26 Referral None recorded. Procedures None recorded. Surgeries None recorded. Imaging None recorded. Medication Orders ondansetron 4 mg disintegrat ing tablet 2023 024 [email or web address] Not available 17:04:33 ondansetron 4 mg disintegrat ing tablet 2023 024 [email or web address] [id number], [address] [place] [address], [place], [address], 17:04:33 Patient TargetsNo targets recorded. Patient Instructions Encounter Date Encounter Id Patient Instructions Last Modified By Organization Details Last Modified Time 12/10/2023 [id number] nausea and vomiting: care instructions Not available [...] much worse, you should seek treatment immediately. [email or web address] Not available 12/10/2023 16:46:45 Reason for Referral None Reported. Results Created Date Observation Date Name Description Value Unit Range Abnormal Flag Note LastModifiedBy Organization Detail LastModifiedTime 12/10/1912/12/2023 URINE CULTU REYENI urine culture, routine FINAL REPORT Not Available [facility] ([facility]) [address] [place], [address], 12/12/2023 06:06:26 12/10/19 24 12/12/2023 URINE CULTU REYENI result 1 COMMEN T Cultu re shows less than 10,00 0 colon y formi ng units of bacte mariola per rivera liter of urine . This colon y count is not gener ally consi dered to be clini weston signi fican t. Not Available [facility] ([facility]) [address] [place] [address], [address], 12/12/2023 06:06:26 12/10/19 24 12/10/2023 urina lysis , dipst ick Unknown Analyte Normal = light yellow Not Available [facility] [address] [place], [address], 12/10/2023 16:50:53 12/10/19 24 12/10/2023 urina lysis , dipst ick Unknown Analyte Yellow Not Available [facility] [address] [place], [address], 12/10/2023 16:50:53 12/10/19 24 12/10/2023 urina lysis , dipst ick Unknown Analyte Normal = clear Not Available [facility] [facility] [address] [place], [address], 12/10/2023 16:50:53 12/10/19 24 12/10/2023 urina lysis , dipst ick Unknown Analyte Clear Not Available [facility] [address] [place], [address], 12/10/2023 16:50:53 12/10/19 24 12/10/2023 urina lysis , dipst ick Unknown Analyte Normal = negati ve Not Available [facility] [facility] [address] [place], [address], 12/10/2023 16:50:53 12/10/19 24 12/10/2023 urina lysis , dipst ick Unknown Analyte Negati ve Not Available [facility] [address] [place], [address], 12/10/2023 16:50:53 12/10/19 24 12/10/2023 urina lysis , dipst ick Unknown Analyte Normal = Negati ve Not Available [address] [place], [address], 12/10/2023 16:50:53 12/10/19 24 12/10/2023 urina lysis , dipst ick Unknown Analyte Small Not Available [facility] [address] [place], [address], 12/10/2023 16:50:53 12/10/19 24 12/10/2023 urina lysis , dipst ick Unknown Analyte Normal = Negati ve Not Available [facility] [address] [place], [address], 12/10/2023 16:50:53 12/10/19 24 12/10/2023 urina lysis , dipst ick Unknown Analyte Negati ve Not Available [facility] [place], [address], 12/10/2023 16:50:53 12/10/19 24 12/10/2023 urina lysis , dipst ick Unknown Analyte Normal = 1.010, 1.015, 1.020 Not Available [facility] [place], [address], 12/10/2023 16:50:53 12/10/19 24 12/10/2023 urina lysis , dipst ick Unknown Analyte 1.030 Not Available [address] [place] [address] [address] [place], [address], 12/10/2023 16:50:53 12/10/19 24 12/10/2023 urina lysis , dipst ick Unknown Analyte Normal = Negati ve Not Available [facility] [place], [address], 12/10/2023 16:50:53 12/10/19 24 12/10/2023 urina lysis , dipst ick Unknown Analyte Negati ve Not Available [address] [place], [address], 12/10/2023 16:50:53 12/10/19 24 12/10/2023 urina lysis , dipst ick Unknown Analyte Normal = 6.5, 7.0, 7.5, 8.0 Not Available [address] [place], [address], 12/10/2023 16:50:53 12/10/19 24 12/10/2023 urina lysis , dipst ick Unknown Analyte 5.5 Not Available _ [address] [place], [address], 12/10/2023 16:50:53 12/10/19 24 12/10/2023 urina lysis , dipst ick Unknown Analyte Normal = Negati ve Not Available [address] [place], [address], 12/10/2023 16:50:53 12/10/19 24 12/10/2023 urina lysis , dipst ick Unknown Analyte Negati ve Not Available [address] [place], [address], 12/10/2023 16:50:53 12/10/19 24 12/10/2023 urina lysis , dipst ick Unknown Analyte Normal = 0.2, 1.0 Not Available [address] [place], [address], 12/10/2023 16:50:53 12/10/19 24 12/10/2023 urina lysis , dipst ick Unknown Analyte Normal = Negati ve Not Available [address] [place], [address], 12/10/2023 16:50:53 12/10/19 24 12/10/2023 urina lysis , dipst ick Unknown Analyte Negati ve Not Available [facility] [address] [place], [address], 12/10/2023 16:50:53 12/10/19 24 12/10/2023 urina lysis , dipst ick Unknown Analyte Normal = Negati ve Not Available [address] [place], [address], 12/10/2023 16:50:53 12/10/19 24 12/10/2023 urina lysis , dipst ick Unknown Analyte Negati ve Not Available [facility] [place], [address], 12/10/2023 16:50:53 12/10/19 24 12/10/2023 urina lysis , dipst ick Unknown Analyte 0.2 E.U./d L Not Available [facility] [address] [address] [place], [address], 12/10/2023 16:50:53 12/10/19 24 12/10/2023 SARS CoV 2 (COVI D-19) Ag, QL, [place], upper respi rator y speci men Unknown Analyte negati ve Not Available [facility] [place], [address], 12/10/2023 16:50:43 12/10/19 24 12/10/2023 SARS CoV 2 (COVI D-19) Ag, QL, IA, upper respi rator y speci men Unknown Analyte yes Not Available [facility] [address] [place], [address], 12/10/2023 16:50:43 12/10/19 24 12/10/2023 rapid flu (A+B) Unknown Analyte negati ve Not Available [address] [place], [address], 12/10/2023 16:50:34 12/10/19 24 12/10/2023 rapid flu (A+B) Unknown Analyte negati ve Not Available [address] [place], [address], 12/10/2023 16:50:34 12/10/19 24 12/10/2023 rapid flu (A+B) Unknown Analyte Not Available [facility] [address] [place], [address], 12/10/2023 16:50:34 Result Notes None recorded. Problems Name Problem SNOMED Code Status Onset Date Resolution Date Notes Provider Name and Address Organization Details Recorded Time Fibromyalgia 563874840 Active ANGELIC Barragan [facility] 4 16:49:49 Disorder of thyroid gland 20735327 Active ANGELIC Barragan [facility] 4 16:50:00 Problem Notes None recorded. Medical Equipment None Reported. Allergies Allergen ID Allergen Name Allergen Category Reaction Reaction Severity Criticality Documentation Date Start Date Code Code System Note Provider Name and Address Organization Details Recorded Time 626145 Toradol medicatio n Not available Not available Not available 12/10/2023 00348 RxNorm Yesenia jensen [place] [facility] [...] Details Last Updated DateTime 4 162.56 cm 38753.7 4 g 99 % 99 % 91 /min 18 /min 96.2 [degF] 116 mm[Hg] 77 mm[Hg] Yesenia Naidu [place] [facility] 16:47:53 Date Recorded Body height Body mass index (BMI) Body weight Oxygen saturation Oxygen saturation in Arterial blood by Pulse oximetry Heart rate Respiratory rate Body temperature Systolic blood pressure Diastolic blood pressure Provider Name and Address Organization Details Last Updated DateTime 4 162.56 cm 27.5 kg/m2 64677.7 8 g 96 % 96 % 84 /min 18 /min 97.4 [degF] 101 mm[Hg] 68 mm[Hg] Bia Rosenberg [facility] 13:14:07 Social History Question Answer Notes LastModified by Organizat ion Details LastModified Time Tobacco Smoking Status Never Smoker Yesenia jensen [place] - [facility] 12/10/2023 16:50:21 What Is Your Level Of Alcohol Consumption? None [email or web address] Information not available 12/10/2023 Are You Currently Employed? Yes Information not available 12/17/2023 Have You Had A Flu Shot This Season? Yes Information not available 12/17/2023 What Was The Date Of Your Most Recent Tobacco Screening? 12/10/2023 [email or web address] Information not available 12/10/2023 What Is Your Relationship Status? Single Information not available 12/17/2023 Are You Currently In School? No Information not available 12/17/2023 Do You Or Have You Ever Used Any Other Forms Of Tobacco Or Nicotine? No Information not available 12/10/2023 Sex: Unknown Functional Status None recorded. Mental Status None recorded. Family History Relationship Description Onset Age of this Age Resolved Age Notes LastModified by Organization Details LastModified Time Father No current problems or disability [email or web address] Not available 02/2024 16:50:10 Mother No current problems or disability [email or web address] Not available 02/2024 16:50:10 Medical History No medical history recorded. Gynecological HistoryNo gynecological history recorded. Obstetrics History GPAL:G 0 P 0 0 0 0 Past Encounters Encounter ID Performer Location Encounter Start Date Encounter Closed Date Diagnosis/Indication Diagnosis SNOMED-CT Code Diagnosis ICD10 Code Diagnosis Note [id number] [address] [place] [phone] 2019 15:06:30 2019 17:03:48 [id number] Freddie5_Eduar [facility]es [facility] mariolar [address] [place] [phone] 05/17/2021 10:22:51 05/17/2021 13:44:56 [id number] [facility] mariolar [address] [place] [phone] 11/27/2018 13:40:56 11/27/2018 14:23:10 [id number] [facility] [address] [place] [phone] 02/18/2020 10:11:47 02/18/2020 11:06:53 [id number] [place] [address] [place] [address] 12/10/2023 16:29:01 12/10/2023 17:29:38 Nausea and vomiting 98221103 R11.2 VSS and she does not have [...] agreement with the plan as outlined above. [id number] ANGELIC Barr [address] [facility] [address] [facility] [place] kong [id number] 12/17/2023 13:01:46 12/17/2023 13:29:02 Viral gastroenteritis 639077176 A08.4 Based on you exam and presentati [...] Blood in Urine. Thank you for using [facility] , please feel free to contact us if you have any questions or concerns. Health Concerns Section Related Observation LastModified by Organization Detai ls LastModified Time None Recorded Concern Status LastModified by Organization Details LastModified Time None Recorded Advance Directives Directive None Recorded Payers Encounter Date Sequence Insurance Name Policy Number Policy Capps Covered Member ID Capps Member ID Guarantor Name 2019 1 [facility] [id number] Bianca E Dorian [id number] Bianca Dorian-Men cezar 02/18/2020 1 [facility] ([facility]) [id number] Bianca E Dorian [id number] Bianca Dorian-Men cezar 05/17/2021 1 [facility] [id number] Bianca E Dorian [id number] Bianca Alarcon-Vneecia cezar 12/10/2023 1 [employer] [place] ([place]PO) [id number] Biancamark Hamiltonz [id number] Bianca Hamiltonz-Men cezar 12/17/2023 1 [employer] ([place]) [id number] Biancamark Alarcon [id number] Bianca Alarcon-Venecia cezar Notes Date Note Type Note Provider Name and Address Organization Details Recorded Time 12/10/2023 text/html Nausea / Vomitin g UCReported bypatient.Notes:58 yo female c/o nausea, abdominal pain x 1 dconstipation x 1 dvomiting x 8 times since this morningstarted after eating a tuna sandwich no blood in 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 no BM today. no bleeding AB pain across lower abdomen - crampy/colic no h/o abdominal surgery in the past No fever+ chillsNo coughNo wheezeNo difficulty breathing or respiratory distressNo CPNo congestionNo sinus painNo ear painNo sore throatNo Abdominal painNo diarrheaNo myalgiaNo fatigueNo rashNo HANo dizziness - endorses feeling LHNo recent travelNo known sick contacts Roayl Whitlock DO [address] [place], [address], PA - [facility] 12/10/2023 17:13:10 12/17/2023 text/html 58 y/o female he re with continued abdominal pain with gastro virus starting last week. Starting to feel a bit better, but wants to make sure she's on the right past ANGELIC Barr [address] [place], [address], [place] PA - [facility] 12/17/2023 13:27:00 OBGyn Episode No OBEpisode recorded.
--- OUTSIDE RECORDS SUMMARY | 2024-11-17 09:20 | XMS_ITS | Encounter Summary ---
Author Organization [employer] [facility] Address [address]t [place] [address] Care Team Providers Care Pipe Processor Name Role Phone Unavailable Primary Care Provider Unavailabl e Encounter Details Date Type Department Care Team (Latest Contact Info) Description 06/18/2020 Abstract [facility] CONVERSIONS Dental, Provider, DDS Social History [...] Description 11/26/2024 2:00 PM EDT Office Visit [facility] ADULT DENTAL [address] [place] [address] Ricardo Rocio [address] [place] [address] documented as of this encounter Visit Diagnoses Not on filedocumented in this encounter
--- OUTSIDE RECORDS SUMMARY | 2024-11-17 09:20 | XMS_ITS | Encounter Summary ---
Author Organization [employer] [facility] Address [address] [place] [address] [address]t [place] [address] Care Team Providers Care Grass Farmer Name Role Phone Unavailable Primary Care Provider Unavailabl e Encounter Details Date Type Department Care Team (Latest Contact Info) Description 11/15/2018 Abstract [facility] CONVERSIONS Dental, Provider, DDS Social History Tobacco [...] Description 11/26/2024 2:00 PM EDT Office Visit [facility] ADULT D[facility] [address] [place] [address] Ricardo Rocio [address] [place] [address] documented as of this encounter Visit Diagnoses Not on filedocumented in this encounter
--- OUTSIDE RECORDS SUMMARY | 2024-11-17 09:20 | XMS_ITS | Clinical Summary ---
Author Organization [facility] Address [address] [address] [place] [address] Care Team Providers Care Epic Beacon Analyst Name Role Phone Unavailable Primary Care Provider [...] 05/22/2024 Dental plaque 05/22/2024 Dental calculus 10/21/2023 Social History Tobacco Use Types Packs/Day Years [...] Description 11/26/2024 2:00 PM EDT Office Visit [facility] ADULT [facility] [address] [place] [address] Ricardo, Rocio [address] [place] [address] Health Maintenance Due Date Last Done Comments CT Colonography 1964 Colonoscopy 1964 Colorectal Cancer Screening 1964 Depression Screening 1964 FIT DNA/Cologuard 1964 FIT 1964 FOBT 1964 HIV Screening 1964 SDOH Screening 1964 Sigmoidoscopy 1964 Alcohol/Substance [...] 09/03/2021, 10/09/2020, 09/11/2020 Influenza Vaccine (#1) 2024 , 08/13/2022, 08/13/2022, Additional history exists Dental Prophylaxis 11/20/2024 05/22/2024, 0 10/21/2023, 01/27/2021, Additional history exists Mammogram 03/29/2025 03/29/2023, 03/29/2023 Tobacco Screening 05/22/2025 05/22/2024 DTaP/Tdap/Td Vaccines (3 - Td or Tdap) 11/21/2033 11/22/2023, 04/05/2013, 10/07/2007, Additional history exists RSV Patients and Patients Aged 60 years or older (1 - 1-dose 75+ series) 2039 Zoster Vaccines Completed 09/03/2021, 05/09/2021 Pneumococcal Vaccine: 50+ Years Completed 07/18/2023 HIB Vaccines Aged Out No longer eligi [...] Most Recently Relevant to Health Maintenance Insurance [facility]
--- OUTSIDE RECORDS SUMMARY | 2024-11-17 09:20 | XMS_ITS | Continuity of Care Document ---
Author Organization [facility] Address [address] [place] [address] Phone Care Team Providers Care Server Service Assistant Name Role Phone Ezekiel Cobian MD, [...] Copied on Encounter [facility] , [address] [place] [address], [address], [place] tel:[phone] [facility] No Information 4 Mango Matthews. [address] [place] [address], [id number] , [place]. tel:[phone] [facility] , [address] [place] [address], [address], [place] tel:[phone] [facility] No Information 3 Mango Matthews. [address] [place] [address], [id number] , [place]. tel:[phone] [facility] , [address] [place] [address], [facility], [place] tel:[phone] [facility] No Information 3 Mango Matthews. [address] [place] [address], [id number] , [place]. tel:[phone] Referring Provider: PCP No. [facility] , [address] [place] [address], [facility], [place] tel:[phone] [facility] No Information 3 Mango Matthews. [address] [place] [address], [id number] , [place]. tel:[phone] Referring Provider: Cassie Churchill, [address] [place] [address], [address] . tel:[phone] New Pt Ov Level 4 [facility] , [address] [place] [address], [address], [place] tel:[phone] [facility] Body mass index (BMI) 28.0-28.9, adultObstructive sleep apnea (adult) (pediatric)Psychophy siologic insomniaFibromyalgia Apr- 3 Mango Matthews. [address] [place] [address], [id number] , [place]. tel:[phone] Referring Provider: Marleny franks MD, [address] [place], [address]. tel:[phone] Family History Family Member Type Diagnosis Age [...] type Covered republican ID Clive keys(s) [employer] [id number] Social History Type Description Quantity Date Captured [...]
[2024-11-17 10:20] LABS: Estimated Average Glucose 114 mg/dL; Hemoglobin A1c % 5.6 % (<6.0)
[2024-11-17 10:52] LABS: Thyroid Stimulating Hormone 0.04 uIU/mL (0.32-4.0); Vitamin D 25-OH Total 44.3 ng/mL (>30)
== END 2024-11-17 09:18 | disposition home or self-care (01) ==
LOC: HO.LAB 09:17
PROVIDERS: PCP Nurse Practitioner Family; Visit Provider Nurse Practitioner Family
DX: E03.9 Hypothyroidism, unspecified (principal); E11.42 Type 2 diabetes mellitus with diabetic polyneuropathy; E55.9 Vitamin D deficiency, unspecified
CPT/HCPCS: 36415; 82306; 83036; 84443

== ENCOUNTER 2025-01-06 19:02 | Emergency (ER) | payer OTHER, SELFPAY ==
--- NOTE | ~2025-01-06 | CT_ITS ---
CLINICAL HISTORY: constipation x1wk severe ABD pain CT Abdomen and Pelvis W Contrast COMPARISON: None FINDINGS: Small hiatal hernia. Normal liver. Normal spleen. Left renal cyst. Nonobstructing left renal calculus. No visible ureteral calculi. Unremarkable right kidney. No hydronephrosis. Normal adrenal glands. Normal pancreas. No visible cholelithiasis. No biliary dilation. No evidence of bowel obstruction. Mild thickening of the nguyen of the sigmoid colon. No pneumatosis. Normal appendix. Unremarkable bladder. Unremarkable uterus. Trace ascites in the pelvis. No pneumoperitoneum. No lymphadenopathy. No acute fracture. No abdominal aortic aneurysm. IMPRESSION: Sigmoid colon wall thickening, which could be due to colitis. Trace ascites in the pelvis. Nonemergent/incidental findings above. This document has been electronically signed by: Andrea Frias MD on 01/06/2025 23:09:50
[2025-01-06 19:10] VITALS: BP 147/65; BP 172/75; PULSE 85; PULSE 93; RESP 15; TEMP 36.9; O2SAT 100; O2SAT 99; BMI 27.1
--- NOTE | 2025-01-06 19:11 | ECG_ITS ---
Test Reason : SYNCOPE Blood Pressure : */* mmHG Vent. Rate : 93 BPM Atrial Rate : 93 BPM P-R Int : 156 ms QRS Dur : 88 ms QT Int : 352 ms P-R-T Axes : 47 24 30 degrees QTcB Int : 437 ms Normal sinus rhythm Normal ECG No previous ECGs available Referred By: Generic ED Physician Electronically Signed By: MARTY SOTO
--- NOTE | 2025-01-06 19:16 | ED.ABDPAIN ---
HPI - Abdominal Pain General Chief Complaint: Syncope Stated Complaint: ABD CRAMPS, NO BM IN DAYS PER EMS Time Seen by Provider: 01/06/25 19:12 Source: patient and EMS Mode of arrival: EMS Limitations: no limitations History of Present Illness ED Provider: jamal colon np HPI narrative: Patient is a 59-year-old female who presents emergency department via EMS for evaluation. She reports that she has chronic severe constipation. She typically goes 3 days without having a bowel movement. However she states that her last bowel movement was 1 week ago. She does not respond well to many laxatives but has been taking her prescribed medicine from Gastroenterology without improvement. She has been experiencing intermittent nausea as well, decreased oral intake due to pain. Earlier today she had very very small formed stool with a few small drops of bright red blood that was noticed in toilet tissue but did have some associated mucus. This evening she had a sudden urge to have a bowel movement, she got out of bed, and while walking she had intense cramping in her abdomen, felt as though she was going to have a bowel movement when suddenly she felt lightheaded stopped in the humphries and grabbed onto a railing and called to her friends for help who brought her back to her room. She did not syncopize when asked. She fully remembers everything that occurred. Her friends ultimately called EMS when she got back to her room. She denies having any associated headache, vision changes, neck pain, chest pain, shortness of breath, vomiting, numbness or tingling of the extremities. Denies any recent fever, chills, hematochezia, melena, dysuria, urinary frequency, urinary urgency, urinary hesitancy, hematuria. denies pelvic pain or abnormal vaginal discharge. Denies concern for sexually transmitted infection. Related Data Home Medications ?Medication ?Instructions ?Recorded ?Confirmed duloxetine 60 mg capsule,delayed 60 mg PO DAILY 01/24/24 06/25/24 release ezetimibe 10 mg tablet 10 mg PO DAILY 01/24/24 06/25/24 metformin 500 mg tablet,extended 500 mg PO DAILY 01/24/24 06/25/24 release 24 hr mirabegron 25 mg tablet,extended 25 mg PO DAILY 01/24/24 06/25/24 release 24 hr levothyroxine 150 mcg tablet 150 mcg PO DAILY 11/07/24 gabapentin 300 mg capsule 300 mg PO DAILY PRN 09/13/24 naproxen 500 mg tablet 500 mg PO DAILY PRN 09/13/24 Previous Rx's ?Medication ?Instructions ?Recorded prucalopride 1 mg tablet 1 mg PO DAILY 90 days #90 tabs 10/25/24 (Motegrity) zolpidem 10 mg tablet (Ambien) 10 mg PO BEDTIME PRN sleep #30 tabs 10/26/24 pantoprazole 40 mg tablet,delayed 40 mg PO DAILY #90 tabs 01/02/25 release dicyclomine 10 mg capsule 10 mg PO TID #20 caps 01/07/25 Allergies Allergy/AdvReac Type Severity Reaction Status Date / Time ketorolac Allergy Unknown anaphylaxis Verified 01/06/25 19:12 Review of Systems Review of Systems Yes all other systems are reviewed and are negative [facility] Past Medical History Attestation statement: The following information was validated with the patient. Source: old records reviewed Medical History Esophagitis Sleep apnea Urinary incontinence Elevated cholesterol Fibromyalgia Hypothyroid Diabetes GERD (gastroesophageal reflux disease) Surgical History H/O colonoscopy History of section Hx of tonsillectomy Family History Family History Maternal Aunt Diverticulosis Paternal Aunt H/O colectomy Social History Social History Alcohol intake: never Patient Tobacco Use Status: Never used Tobacco Advance Directives: No Advance Directives Information Provided: Yes Do you have a plan to hurt others: No Plan Physical Exam ED Vital Signs: Vital Signs - 24 hr 01/06/25 19:10 01/06/25 19:56 01/06/25 21:36 Temperature 98.4 F Pulse Rate 85 79 Respiratory Rate 15 20 16 Blood Pressure 147/65 H 139/75 Pulse Oximetry 99 98 Oxygen Delivery Method Room Air Room Air 01/06/25 21:48 01/07/25 00:37 Temperature 97.6 F Pulse Rate 83 Respiratory Rate 20 18 Blood Pressure 120/66 Pulse Oximetry 96 Oxygen Delivery Method Room Air BMI result Body Mass Index 27.1 Appearance: Alert.?Oriented to person, place and time. No acute distress.?Normal affect.?? Neck: Normal inspection.? Neck supple.?? CVS: Heart sounds normal. Normal heart rate and rhythm.? Pulses normal.?? Respiratory: No respiratory distress.? Lung sounds clear to auscultation bilaterally?? Abdomen: Soft bilateral lower abdominal tenderness No rebound tenderness at McBurney's point. Negative psoas sign. Negative Rovsing sign. Negative Joseph sign. No CVAT. Normoactive bowel sounds. No pulsatile mass.?? Skin: Skin warm and dry.? Normal skin color.? Extremities: No lower extremity edema.? Neuro: Moves all extremities spontaneously. Sensation intact bilaterally. Ambulates with normal steady gait. Course Reevaluation(s) Reevaluation #1: CBC shows a mild leukocytosis of 11,700, no anemia, no thrombocytopenia. No electrolyte derangement. No FRANK. LFTs and lipase unremarkable. No lactic acidosis to suggest ischemic bowel Urinalysis without evidence of infection or microscopic hematuria. Viral serologies are negative. CT of the abdomen and pelvis shows sigmoid colon wall thickening concerning for possible colitis. Last colonoscopy was in June of 2024 [facility], revealing polyps internal hemorrhoids, normal sigmoid colon at that time, no mentioned findings concerning for IBD. I reviewed these findings with patient, will discharge home with a prescription for dicyclomine, received dose in the emergency department and advised close outpatient follow-up with Gastroenterology. Strict return precautions reviewed Medical Decision Making Medical Decision Making MDM Narrative: Patient is a 59-year-old female with past medical history of GERD, esophagitis, hyperlipidemia, fibromyalgia, hypothyroidism, diabetes, PARMJIT presenting to emergency department via EMS for evaluation of abdominal pain, constipation x1 week associated nausea. Overall she appears well but uncomfortable, on examination she has bilateral lower abdominal tenderness that seems worse on the left than the right no rebound tenderness. Her abdomen is soft, she has afebrile without tachycardia. Given her history of severe constipation, planning to obtain CT of the abdomen and pelvis for further evaluation, possible bowel obstruction versus severe constipation, diverticulitis, appendicitis. Given lack of symptoms I have lower suspicion for renal colic, pyelonephritis, obstructive uropathy. Lower suspicion for TOA/ovarian torsion With her History of severe chronic idiopathic constipation she is followed by GI at [facility], last seen in September of 2024, unfortunately in the past he has not responded to OTC medications, had previously been on highest dose of Linzess without success at that time decided to start Reglan empirically ordered GES, Amitiza b.i.d. and continue pantoprazole b.i.d. for erosive esophagitis. Differential Diagnosis Differential Diagnoses: The differential diagnosis associated with the presentation includes (See narrative above) Admission/Observation Consideration of admission/observation: Escalation of care including admission/observation considered (See narrative above ) Lab Data MDM Lab Attestation statement: I reviewed the patient's lab results. 01/06/25 19:45 01/06/25 19:45 Labs: Lab Results 01/06/25 01/06/25 Range/Units 19:45 20:00 WBC 11.7 H (4.8-10.8) X10*3/uL RBC 4.67 (4.20-5.50) X10*6/uL Hgb 13.3 (12.0-16.0) g/dl Hct 39.9 (37.0-47.0) % MCV 85.4 (80.0-98.0) fL MCH 28.5 (27.0-33.0) pg MCHC 33.3 (31.0-35.0) g/dl RDW 13.8 (11.0-16.0) % Plt Count 302 (160-400) X10*3/uL MPV 9.1 L (9.4-12.3) fL Immature Gran % (Auto) 0.3 (0.0-0.4) % Neut % (Auto) 90.0 H (45-73) % Lymph % (Auto) 5.5 L (20-40) % Appling % (Auto) 3.8 (2-11) % Eos % (Auto) 0.1 (0-4) % Baso % (Auto) 0.3 (0-2) % Lymph # (Auto) 0.7 L (1.2-4.9) X10*3/uL [place] # (Auto) 0.5 (0.1-1.2) X10*3/uL Eos # (Auto) 0.0 (0.0-0.4) X10*3/uL Baso # (Auto) 0.0 (0.0-0.2) X10*3/uL Abs Immat Gran (auto) 0.03 (0.00-0.03) X10*3/uL Absolute Neuts (auto) 10.6 H (2.0-8.3) x10*3/uL Absolute Nucleated RBC 0.000 (0.0-0.012) X10*3/uL Nucleated RBC % (auto) 0.0 (0.0-0.2) /100WBC Sodium 141 (135-145) mmol/L Potassium 3.9 (3.3-5.1) mmol/L Chloride 106 (96-108) mmol/L Carbon Dioxide 26 (22-29) mmol/L Anion Gap 13 (12-20) BUN 20 H (9-16) mg/dL Creatinine 0.58 (0.5-1.4) mg/dL Estim Creat Clear Calc 100.0 Estimated GFR > 60 Random Glucose 116 H (60-115) mg/dL Lactic Acid 0.8 (0.5-2.0) mmol/L Calcium 9.2 D (8.4-10.2) mg/dL Magnesium 2.0 (1.6-2.6) mg/dL Total Bilirubin 0.2 (0.0-1.0) mg/dL AST 22 (5-31) U/L ALT 23 (0-31) U/L Alkaline Phosphatase 107 (39-117) U/L Troponin I High Sens < 2.7 (<3.5-17.0) ng/L Total Protein 7.1 (6.5-8.0) g/dL Albumin 4.1 (3.5-5.0) g/dL Lipase 25 (8-78) U/L Urine Color Yellow Urine Appearance Clear Urine pH 6.0 (5.0-9.0) Ur Specific [place] 1.010 (1.005-1.025) Urine Protein Negative (Neg-Trace) mg/dL Urine Glucose (UA) Negative (Negative) mg/dL Urine Ketones Trace (Negative) mg/dL Urine Blood Negative (Negative) Urine Nitrite Negative (Negative) Ur Leukocyte Esterase Negative (Negative) Influenza Type A (PCR) NEGATIVE (Negative) Influenza Type B (PCR) NEGATIVE (Negative) RSV RNA Qual (PCR) NEGATIVE (Negative) SARS-CoV-2 RNA (RT-PCR) NEGATIVE (Negative) Radiology Impression Discussion of test interpretation with radiology: I have reviewed the radiologist's reading. Radiologist Impression: CT Abdomen and Pelvis W Contrast COMPARISON: None FINDINGS: Small hiatal hernia. Normal liver. Normal spleen. Left renal cyst. Nonobstructing left renal calculus. No visible ureteral calculi. Unremarkable right kidney. No hydronephrosis. Normal adrenal glands. Normal pancreas. No visible cholelithiasis. No biliary dilation. No evidence of bowel obstruction. Mild thickening of the nguyen of the sigmoid colon. No pneumatosis. Normal appendix. Unremarkable bladder. Unremarkable uterus. Trace ascites in the pelvis. No pneumoperitoneum. No lymphadenopathy. No acute fracture. No abdominal aortic aneurysm. IMPRESSION: Sigmoid colon wall thickening, which could be due to colitis. Trace ascites in the pelvis. Nonemergent/incidental findings above. Independent Historian Clinical information obtained from an independent historian. History obtained from or confirmed by: EMS External Record Review External record reviewed: Outpatient record Chronic Conditions Patient?s care impacted by: Other (see Narrative above) Medications Administered Discontinued Medications Generic Name Dose Route Start Last Admin Trade Name Freq PRN Reason Stop Dose Admin Diatrizoate Meglum/Diatrizoate Sod 30 ml 01/06/25 22:17 01/06/25 22:18 Diatrizoate Meglumine, Sodium 30 Ml Solution PO 01/06/25 22:18 30 ml ONCE ONE Administration Dicyclomine HCl 10 mg 01/07/25 00:02 01/07/25 00:16 Dicyclomine Hcl 10 Mg Capsule PO 01/07/25 00:03 10 mg ONCE ONE Administration Sodium Chloride 1,000 mls @ 999 mls/hr 01/06/25 20:00 01/06/25 22:00 Ns IV 01/06/25 21:00 Infused .Q1H1M DEON Infusion Iohexol 85 ml 01/06/25 22:15 01/06/25 22:15 Iohexol 350 Mg/Ml 100 Ml Infus..Btl IV 01/06/25 22:16 85 ml ONCE ONE Administration Morphine Sulfate 2 mg 01/06/25 19:47 01/06/25 19:56 Morphine Sulfate 2 Mg/Ml Cartridge IVPUSH 01/06/25 19:48 2 mg ONCE ONE Administration Protocol Morphine Sulfate 2 mg 01/06/25 21:11 01/06/25 21:48 Morphine Sulfate 2 Mg/Ml Cartridge IVPUSH 01/06/25 21:12 2 mg ONCE ONE Administration Protocol Ondansetron HCl 4 mg 01/06/25 19:47 01/06/25 19:56 Ondansetron Hcl 4 Mg/2 Ml Vial IVPUSH 01/06/25 19:48 4 mg ONCE ONE Administration Critical Care Time Critical Care Time Critical Care Time: Yes Total Critical Care Time: 35 Attestation: I personally attest to this critical care time spent taking care of the patient exclusive of all other billable procedures was approximately 35 minutes including initial evaluation of patient, ordering tests, IV morphine and re-evaluation, EKG interpretation, medical consultation, documentation, re-evaluation. Discharge Plan Discharge Clinical Impression: Chronic idiopathic constipation Patient Disposition: Home, Self-Care Instructions: Constipation (ED), High Fiber Diet (ED) Additional Instructions: Continue taking your medication as prescribed by your doctors. Contact the gastroenterology office tomorrow morning to arrange for a follow-up visit. Continue with high-fiber diet, drinking plenty of fluid throughout the day. Prescription for dicyclomine has been sent to the pharmacy to use as needed for abdominal pain/cramping. Return to emergency department any new or worsening symptoms or concerns. Prescriptions: New dicyclomine 10 mg capsule 10 mg PO TID Qty: 20 0RF No Action prucalopride [Motegrity] 1 mg tablet 1 mg PO DAILY 90 Days Qty: 90 0RF pantoprazole 40 mg tablet,delayed release (DR/EC) 40 mg PO DAILY Qty: 90 1RF mirabegron 25 mg tablet extended release 24 hr 25 mg PO DAILY metformin 500 mg tablet extended release 24 hr 500 mg PO DAILY ezetimibe 10 mg tablet 10 mg PO DAILY duloxetine 60 mg capsule,delayed release(DR/EC) 60 mg PO DAILY naproxen 500 mg tablet 500 mg PO DAILY PRN levothyroxine 150 mcg tablet 150 mcg PO DAILY gabapentin 300 mg capsule 300 mg PO DAILY PRN zolpidem [Ambien] 10 mg tablet 10 mg PO BEDTIME PRN (Reason: sleep) Qty: 30 3RF Referrals: Grace Pineda ANP-C [Nurse Practitioner] - Interventions: ED Discharge Assessment Last Done: 01/07/25 00:37 Print Language: Chilean
--- OUTSIDE RECORDS SUMMARY | 2025-01-06 19:31 | XMS_ITS | Clinical Summary ---
Author Organization [employer] Address [address] [place] [address] Care Team Providers Care Ex Chef Name Role Phone Unavailable Primary Care Provider [...] by mouth Once per day. 03/25/2024 Active ezetimibe (Zetia) 10 MG tablet Take 10 mg by mouth Once per day. Active mirabegron ER (Myrbetriq) 25 MG 24 hr tablet Take 25 mg by mouth Once per day. Active pantoprazole (ProtoNix) 40 MG EC tablet Take 1 tablet by mouth Once per day. 10/02/2024 Active Prucalopride Succinate 1 MG tablet Take 1 tablet by mouth Once per day. 10/28/2024 Active zolpidem (Ambien) 10 MG tablet 11/25/2024 Active acetaminophen (Tylenol 8 Hour) 650 MG ER tablet Take 1 tablet (650 mg) by mouth every 8 (eight) hours if needed for mild pain. Do not crush, chew, or split. 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 Crowded teeth 05/22/2024 Dental plaque 05/22/2024 Dental calculus 10/21/2023 Encounters Date Type Department Care Team Description 11/26/2024 2:00 PM EDT Office Visit [facility] ADULT [facility] [address] [place] [address] Rocio Silva Dental calculus (Primary Dx); Crowded teeth; Prognathism 11/19/2024 Travel from Last 3 Months Social History Tobacco [...] Sign Reading Time Taken Comments Blood Pressure 122/80 11/26/2024 2:06 PM EDT Pulse 75 05/22/2024 3:18 PM EDT Temperature - - Respiratory Rate - - Oxygen Saturation - - Inhaled Oxygen Concentration - - Weight - - Height - - Body Mass Index - - Plan of Treatment Upcoming Encounters Date Type Department Care Team (Late st Contact Info) Description 06/03/2025 1:00 PM EDT Office Visit [facility]ULT [facility] [address] [place] [address] Rocio Silva [address] [place] [address] Health Maintenance Due Date Last Done Comments CT Colonography 1964 Colonoscopy 1964 Colorectal Cancer Screening 1964 Depression Screening 1964 FIT DNA/Cologuard 1964 FIT 1964 FOBT 1964 HIV Screening 1964 SDOH Screening 1964 Sigmoidoscopy 1964 Alcohol/Substance Use Screening 1976 Hepatitis C Screening 1982 Pap Smear 1985 Cervical Cancer Screening 1994 HPV/Cotest 1994 Dental Oral Exam 07/31/2021 01/27/2021, , 12/14/2018, Additional history exists Hepatitis B Vaccines (4 of 4 - CpG-HepB 4-dose series) 08/11/2024 07/14/2024, 05/26/2024, 10/13/2023, Additional history exists Mammogram 03/29/2025 03/29/2023, 03/29/2023 Dental Prophylaxis 05/30/2025 11/26/2024, 0 05/22/2024, 10/21/2023, Additional history exists Tobacco Screening 11/26/2025 11/26/2024 Dental X-Ray: Bitewings 11/27/2025 11/27/19, 06/18/2020, 11/15/2018, Additional history exists Dental X-Ray: Full Mouth 11/28/2027 11/26/2024, 06/05 DTaP/Tdap/Td Vaccines (3 - Td or Tdap) 11/21/2033 11/22/2023, 04/05/2013, 10/07/2007, Additional history exists RSV Patients and Patients Aged 60 years or older (1 - 1-dose 75+ series) 2039 Zoster Vaccines Completed 09/03/2021, 05/09/2021 Pneumococcal Vaccine: 50+ Years Completed 07/18/2023 COVID-19 Vaccine Completed 05/26/2024, , 10/09/2020, Additional history exists Influenza Vaccine Completed 05/26/2024, , 08/13/2022, Additional history exists Hepatitis A Vaccines Aged Out 07/14/2024, 05/26/20 No longer eligible based on patient's age [...] Procedure Name Priority Date/Time Associated Diagnosis Comments ORAL HYGIENE INSTRUCTIONS Routine 11/26/2024 2:00 PM EDT Dental calculus Crowded teeth PROPHYLAXIS - ADULT Routine 11/26/2024 2 :00 PM EDT Dental calculus Crowded teeth INTRAORAL - COMPLETE SERIES OF RADIOGRAPHIC IMAGES Routine 11/26/2024 2:00 PM EDT Dental calculus Crowded teeth PERIODIC ORAL EVALUATION - ESTABLISHED PATIENT Routine 01/27/2021 12:00 AM EDT from Last 3 Months or Most Recently Relevant to Health Maintenance Insurance [facility]
--- OUTSIDE RECORDS SUMMARY | 2025-01-06 19:31 | XMS_ITS | Encounter Summary ---
Author Organization [employer] [facility] Address [address] [place] [address] Care Team Providers Care Stationary Fireman Name Role Phone Unavailable Primary Care Provider Unavailabl e Encounter Details Date Type Department Care Team (Latest Contact Info) Description 06/18/2020 Abstract [facility] CONVERSIONS Dental, Provider, DDS Social History Tobacco [...] Care Team ( st Contact Info) Description 06/03/2025 1:00 PM EDT Office Visit [facility] ADULT DENTAL [address] [place] [address] Ricardo Rocio [address] [place] [address] documented as of this encounter Visit Diagnoses Not on filedocumented in this encounter
--- OUTSIDE RECORDS SUMMARY | 2025-01-06 19:31 | XMS_ITS | Continuity of Care Document ---
Author Organization [facility] Address [address] [place] [address] Phone Care Team Providers Care Region Manager Name Role Phone Ezekiel Cobian MD, [...] Copied on Encounter [facility] , [address] [place] [address], [id number], [place] tel:[phone] [facility] No Information 4 Mango Matthews. [address] [place] [address], [id number] , [place]. tel:[phone] [facility] , [address] [place] [address], [id number], [place] tel:[phone] [facility] No Information 3 Mango Matthews. [address] [place] [address], [id number] , [place]. tel:[phone] [facility] , [address] [place] [address], [facility]ly [facility], [place] tel:[phone] [facility] No Information 3 Mango Matthews. [address] [place] [address], [id number] , [place]. tel:[phone] Referring Provider: PCP No. [facility] , [address] [place] [address], [facility], [place] tel:[phone] [facility] No Information 3 Mango Matthews. [address] [place] [address], [id number] , [place]. tel:[phone] Referring Provider: Cassie Churchill, [address] [place] [address], [id number] . tel:[phone] New Pt Ov Level 4 [facility] , [address] [place] [address], [id number], [place] tel:[phone] [facility] Body mass index (BMI) 28.0-28.9, adultObstructive sleep apnea (adult) (pediatric)Psychophy siologic insomniaFibromyalgia Apr- 3 Mango Matthews. [address] [place] [address], [id number] , [place]. tel:[phone] Referring Provider: Marleny franks MD, [address] [place], [address]. tel:[phone] Family History Family Member Type Diagnosis Age [...] Provider Payers Payer name Insurance type Covered green party ID Clive keys(s) [employer] [id number] Social History Type Description Quantity Date Captured [...]
--- OUTSIDE RECORDS SUMMARY | 2025-01-06 19:31 | XMS_ITS | Data Portability ---
Author Organization ANGELIC Zapien s, [address] Address [address] [place] [address] Assessment No assessment recorded. Plan of Treatment Reminders Order Date Submit Date Provider Last Modified By Organization Details Last Modified Time Details Appointments None recorded. Lab rapid flu (A+B) 2023 024 [email or web address] [facility] [address], [address] [place], [address], 4 17:04:41 SARS CoV 2 (COVID-19) Ag, QL, IA, upper respiratory specimen 2023 024 [email or web address] [facility] [address], [address] [place], [address], 4 17:04:42 urinalysis, dipstick 2023 024 [email or web address] [facility] [address], [address] [place], [address], 4 17:04:44 culture, urine 2023 024 [place] [facility] ([facility], [address] [place] [address], [place], [address], 06:06:26 Referral None recorded. Procedures None recorded. Surgeries None recorded. Imaging None recorded. Medication Orders ondansetron 4 mg disintegrat ing tablet 2023 024 [email or web address] Not available 17:04:33 ondansetron 4 mg disintegrat ing tablet 2023 024 [email or web address] [id number], [address] [place] [address], [place], [address], 17:04:33 Patient TargetsNo targets recorded. Patient Instructions Encounter Date Encounter Id Patient Instructions Last Modified By Organization Details Last Modified Time 12/10/2023 [id number] nausea and vomiting: care instructions Not available [...] much worse, you should seek treatment immediately. [email or web address] Not available 12/10/2023 16:46:45 Reason for Referral None Reported. Results Created Date Observation Date Name Description Value Unit Range Abnormal Flag Note LastModifiedBy Organization Detail LastModifiedTime 12/10/1912/12/2023 URINE CULTU REYENI urine culture, routine FINAL REPORT Not Available [facility] ([facility]) [address] [place], [address], 12/12/2023 06:06:26 12/10/19 24 12/12/2023 URINE CULTU REYENI result 1 COMMEN T Cultu re shows less than 10,00 0 colon y formi ng units of bacte mariola per rivera liter of urine . This colon y count is not gener ally consi dered to be clini weston signi fican t. Not Available [facility] ([facility]) [address] [place] [address], [address], 12/12/2023 06:06:26 12/10/19 24 12/10/2023 urina lysis , dipst ick Unknown Analyte Normal = light yellow Not Available [facility] [address] [place], [address], 12/10/2023 16:50:53 12/10/19 24 12/10/2023 urina lysis , dipst ick Unknown Analyte Yellow Not Available [facility] [address] [place], [address], 12/10/2023 16:50:53 12/10/19 24 12/10/2023 urina lysis , dipst ick Unknown Analyte Normal = clear Not Available [facility] [address] [place], [address], 12/10/2023 16:50:53 12/10/19 24 12/10/2023 urina lysis , dipst ick Unknown Analyte Clear Not Available [facility] [address] [place], [address], 12/10/2023 16:50:53 12/10/19 24 12/10/2023 urina lysis , dipst ick Unknown Analyte Normal = negati ve Not Available [address] [place], [address], 12/10/2023 16:50:53 12/10/19 24 12/10/2023 urina lysis , dipst ick Unknown Analyte Negati ve Not Available sprin [facility] [place], [address], 12/10/2023 16:50:53 12/10/19 24 12/10/2023 urina lysis , dipst ick Unknown Analyte Normal = Negati ve Not Available [address]sp[address] [place], [address], 12/10/2023 16:50:53 12/10/19 24 12/10/2023 urina lysis , dipst ick Unknown Analyte Small Not Available [facility] [address] [place], [address], 12/10/2023 16:50:53 12/10/19 24 12/10/2023 urina lysis , dipst ick Unknown Analyte Normal = Negati ve Not Available [address] [place], [address], 12/10/2023 16:50:53 12/10/19 24 12/10/2023 urina lysis , dipst ick Unknown Analyte Negati ve Not Available sprin [address] [place], [address], 12/10/2023 16:50:53 12/10/19 24 12/10/2023 urina lysis , dipst ick Unknown Analyte Normal = 1.010, 1.015, 1.020 Not Available [address] [place], [address], 12/10/2023 16:50:53 12/10/19 24 12/10/2023 urina lysis , dipst ick Unknown Analyte 1.030 Not Available [address] [place] [address] [address] [place], [address], 12/10/2023 16:50:53 12/10/19 24 12/10/2023 urina lysis , dipst ick Unknown Analyte Normal = Negati ve Not Available sprin [address] [place], [address], 12/10/2023 16:50:53 12/10/19 24 12/10/2023 urina lysis , dipst ick Unknown Analyte Negati ve Not Available [address] [place], [address], 12/10/2023 16:50:53 12/10/19 24 12/10/2023 urina lysis , dipst ick Unknown Analyte Normal = 6.5, 7.0, 7.5, 8.0 Not Available [address] [place], [address], 12/10/2023 16:50:53 12/10/19 24 12/10/2023 urina lysis , dipst ick Unknown Analyte 5.5 Not Available _ [address] [place], [address], 12/10/2023 16:50:53 12/10/19 24 12/10/2023 urina lysis , dipst ick Unknown Analyte Normal = Negati ve Not Available [address] [place], [address], 12/10/2023 16:50:53 12/10/19 24 12/10/2023 urina lysis , dipst ick Unknown Analyte Negati ve Not Available [address] [place], [address], 12/10/2023 16:50:53 12/10/19 24 12/10/2023 urina lysis , dipst ick Unknown Analyte Normal = 0.2, 1.0 Not Available [address] [place], [address], 12/10/2023 16:50:53 12/10/19 24 12/10/2023 urina lysis , dipst ick Unknown Analyte Normal = Negati ve Not Available [address] [place], [address], 12/10/2023 16:50:53 12/10/19 24 12/10/2023 urina lysis , dipst ick Unknown Analyte Negati ve Not Available fadia [address] [place], [address], 12/10/2023 16:50:53 12/10/19 24 12/10/2023 urina lysis , dipst ick Unknown Analyte Normal = Negati ve Not Available [address] qu[address]i [address] [place], [address], 12/10/2023 16:50:53 12/10/19 24 12/10/2023 urina lysis , dipst ick Unknown Analyte Negati ve Not Available [address] [place], [address], 12/10/2023 16:50:53 12/10/19 24 12/10/2023 urina lysis , dipst ick Unknown Analyte 0.2 E.U./d L Not Available [address] [place], [address], 12/10/2023 16:50:53 12/10/19 24 12/10/2023 SARS CoV 2 (COVI D-19) Ag, QL, IA, upper respi rator y speci men Unknown Analyte negati ve Not Available [address] [place], [address], 12/10/2023 16:50:43 12/10/19 24 12/10/2023 SARS CoV 2 (COVI D-19) Ag, QL, IA, upper respi rator y speci men Unknown Analyte yes Not Available [facility] [address] [place], [address], 12/10/2023 16:50:43 12/10/19 24 12/10/2023 rapid flu (A+B) Unknown Analyte negati ve Not Available [address] [place], [address], 12/10/2023 16:50:34 12/10/19 24 12/10/2023 rapid flu (A+B) Unknown Analyte negati ve Not Available [address] [place], [address], 12/10/2023 16:50:34 12/10/19 24 12/10/2023 rapid flu (A+B) Unknown Analyte Not Available [address] [address] [place], [address], 12/10/2023 16:50:34 Result Notes None recorded. Problems Name Problem SNOMED Code Status Onset Date Resolution Date Notes Provider Name and Address Organization Details Recorded Time Fibromyalgia 894294442 Active ANGELIC Barragan [facility] 4 16:49:49 Disorder of thyroid gland 06661230 Active ANGELIC Barragan [facility] 4 16:50:00 Problem Notes None recorded. Medical Equipment None Reported. Allergies Allergen ID Allergen Name Allergen Category Reaction Reaction Severity Criticality Documentation Date Start Date Code Code System Note Provider Name and Address Organization Details Recorded Time 515821 Toradol medicatio n Not available Not available Not available 12/10/2023 50767 RxNorm Yesenia jensen [place] [facility] [...] Details Last Updated DateTime 4 162.56 cm 08810.7 4 g 99 % 99 % 91 /min 18 /min 96.2 [degF] 116 mm[Hg] 77 mm[Hg] Yesenia Naidu [place] - [facility] 16:47:53 Date Recorded Body height Body mass index (BMI) Body weight Oxygen saturation Oxygen saturation in Arterial blood by Pulse oximetry Heart rate Respiratory rate Body temperature Systolic blood pressure Diastolic blood pressure Provider Name and Address Organization Details Last Updated DateTime 4 162.56 cm 27.5 kg/m2 06738.7 8 g 96 % 96 % 84 /min 18 /min 97.4 [degF] 101 mm[Hg] 68 mm[Hg] Bia Rosenberg [facility] [employer] 13:14:07 Social History Question Answer Notes LastModified by Organizat ion Details LastModified Time Tobacco Smoking Status Never Smoker Yesenia jensen [place] - [facility] 12/10/2023 16:50:21 What Is Your Level Of Alcohol Consumption? None [email or web address] Information not available 12/10/2023 Are You Currently Employed? Yes Information not available 12/17/2023 Have You Had A Flu Shot This Season? Yes Information not available 12/17/2023 What Was The Date Of Your Most Recent Tobacco Screening? 12/10/2023 [email or web address] Information not available 12/10/2023 What Is Your [...] Time Father No current problems or disability [email or web address] Not available 02/2024 16:50:10 Mother No current problems or disability Not available 02/2024 16:50:10 Medical History No medical history recorded. Gynecological HistoryNo gynecological history recorded. Obstetrics History GPAL:G 0 P 0 0 0 0 Past Encounters Encounter ID Performer Location Encounter Start Date Encounter Closed Date Diagnosis/Indication Diagnosis SNOMED-CT Code Diagnosis ICD10 Code Diagnosis Note [id number] [address] [place] [address] 2019 15:06:30 2019 17:03:48 [id number] [facility] [address] [facility] [address] [place] [address] 05/17/2021 10:22:51 05/17/2021 13:44:56 [id number] [address] [address] [place] [address] 11/27/2018 13:40:56 11/27/2018 14:23:10 [id number] [address] [facility] [place] [address] 02/18/2020 10:11:47 02/18/2020 11:06:53 [id number] [place] [address] [place] [address] 12/10/2023 16:29:01 12/10/2023 17:29:38 Nausea and vomiting 82832863 R11.2 VSS and she does not have [...] agreement with the plan as outlined above. [id number] ANGELIC Barr [address] [facility] [address] [facility], [place] [address] 12/17/2023 13:01:46 12/17/2023 13:29:02 Viral gastroenteritis 197622855 A08.4 Based on you exam and presentati [...] Blood in Urine. Thank you for using [facility] , please feel free to contact us if you have any questions or concerns. Health Concerns Section Related Observation LastModified by Organization Detai ls LastModified Time None Recorded Concern Status LastModified by Organization Details LastModified Time None Recorded Advance Directives Directive None Recorded Payers Encounter Date Sequence Insurance Name Policy Number Policy Capps Covered Member ID Capps Member ID Guarantor Name 2019 1 [facility] [id number] Biancamark Alarcon [id number] Bianca robb 02/18/2020 1 [facility] (O) [id number] Bianca Ton Dorian [id number] Bianca Dorian-Men cezar 05/17/2021 1 [facility] (HMO) [id number] Biancamark Hamiltonz [id number] Bianca Dorian-Men cezar 12/10/2023 1 [employer] [place] [id number] Bianca Dorian [id number] Bianca Dorian-Men cezar 12/17/2023 1 [employer] [place] [id number] Bianca Dorian [id number] Bianca Dorian-Men cezar Notes Date Note Type Note Provider Name and Address Organization Details Recorded Time 12/10/2023 text/html Nausea / Vomitin g UCReported bypatient.Notes:58 yo female c/o nausea, abdominal pain x 1 dconstipation x 1 dvomiting x 8 times since this morningstarted after eating a tuna sandwich no blood in vomit last vomited 1 h [employer] last PO yesterday last BM yesterday. no [...] Royal Whitlock DO [address] [place], [address], [place] - [facility] 12/10/2023 17:13:10 12/17/2023 text/html 58 y/o female he re with continued abdominal pain with gastro virus starting last week. Starting to feel a bit better, but wants to make sure she's on the right past ANGELIC Barr [address] [place], [address], [place] - [facility] 12/17/2023 13:27:00 OBGyn Episode No OBEpisode recorded.
--- OUTSIDE RECORDS SUMMARY | 2025-01-06 19:31 | XMS_ITS | Encounter Summary ---
Author Organization [email or web address] [facility] Address [address] [facility] [address] [place] [address] Care Team Providers Care Copy Preparer Name Role Phone Unavailable Primary Care Provider Unavailabl e Encounter Details Date Type Department Care Team (Latest Contact Info) Description 11/15/2018 Abstract [facility] CONVERSIONS Dental, Provider, DDS Social [...] Description 06/03/2025 1:00 PM EDT Office Visit [facility] ADULT DENTAL [address] [place] [address] Ricardo Rocio [address] [place] [address] documented as of this encounter Visit Diagnoses Not on filedocumented in this encounter
[2025-01-06 19:51] LABS: MANUAL DIFF FLAG NO
[2025-01-06 19:56] VITALS: RESP 20
[2025-01-06] MEDS: Morphine Sulfate 2 MG/ML CARTRIDGE IVPUSH ×2 (19:56→21:48)
[2025-01-06] MEDS: ondansetron HCL 4 MG/2 ML VIAL IVPUSH (19:56)
[2025-01-06 19:57] LABS: Basophils Percent Auto 0.3 % (0-2); Eosinophils Percent Auto 0.1 % (0-4); Hematocrit 39.9 % (37.0-47.0); Hemoglobin 13.3 g/dl (12.0-16.0); Imm Gran Abs Auto 0.03 X10*3/uL (0.00-0.03); Imm Gran Pct Auto 0.3 % (0.0-0.4); Lymphocytes Absolute Auto 0.7 X10*3/uL (1.2-4.9); Lymphocytes Percent Auto 5.5 % (20-40); Mean Corpuscular HGB Conc 33.3 g/dl (31.0-35.0); Mean Corpuscular Hemoglobin 28.5 pg (27.0-33.0); Mean Corpuscular Volume 85.4 fL (80.0-98.0); Mean Platelet Volume 9.1 fL (9.4-12.3); Monocytes Absolute Auto 0.5 X10*3/uL (0.1-1.2); Monocytes Percent Auto 3.8 % (2-11); Neutrophils Absolute Auto 10.6 x10*3/uL (2.0-8.3); Platelet Count 302 X10*3/uL (160-400); Red Blood Count 4.67 X10*6/uL (4.20-5.50); Red Cell Distribution Width 13.8 % (11.0-16.0); White Blood Count 11.7 X10*3/uL (4.8-10.8)
[2025-01-06] MEDS: 0.9 % Sodium Chloride 1,000 ML 999 ML IV (20:03)
[2025-01-06 20:07] LABS: Appearance Urine Clear; Color Urine Yellow; Glucose Urine UA Negative (Negative); Leukocyte Esterase Urine Negative (Negative); Nitrite Urine Negative (Negative); Urine Blood Negative (Negative); Urine Ketones Trace mg/dL (Negative); Urine Protein Negative (Neg-Trace)
[2025-01-06 20:07] LABS: Alanine Aminotransferase 23 U/L (0-31); Albumin Level 4.1 g/dL (3.5-5.0); Alkaline Phosphatase 107 U/L (39-117); Anion Gap 13 (12-20); Aspartate Amino Transferase 22 U/L (5-31); Bilirubin Total 0.2 mg/dL (0.0-1.0); Blood Urea Nitrogen 20 mg/dL (9-16); Calcium 9.2 mg/dL (8.4-10.2); Carbon Dioxide 26 mmol/L (22-29); Chloride 106 mmol/L (96-108); Estimated Glomerular Filt Rate > 60; Glucose Random 116 mg/dL (60-115); Lipase 25 U/L (8-78); Potassium 3.9 mmol/L (3.3-5.1); Sodium 141 mmol/L (135-145); Total Protein 7.1 g/dL (6.5-8.0)
[2025-01-06 20:08] LABS: Lactic Acid 0.8 mmol/L (0.5-2.0)
[2025-01-06 20:16] LABS: Troponin-I High Sensitivity < 2.7 ng/L (<3.5-17.0)
[2025-01-06 20:31] LABS: Influenza A PCR NEGATIVE (Negative); Influenza B PCR NEGATIVE (Negative); Resp Syncy Virus RNA Qual PCR NEGATIVE (Negative); SARS COV2 PCR INHOUSE NEGATIVE (Negative)
[2025-01-06 21:36] VITALS: BP 139/75; PULSE 79; RESP 16; O2SAT 98
[2025-01-06 21:48] VITALS: RESP 20
[2025-01-06] MEDS: iohexoL 350 MG/ML 100 ML INFUS..BTL 85 ML IV (22:15)
[2025-01-06] MEDS: Diatrizoate Meglumine, Sodium 30 ML SOLUTION PO (22:18)
[2025-01-07] MEDS: Dicyclomine HCl 10 MG CAPSULE PO (00:16)
[2025-01-07 00:37] VITALS: BP 120/66; PULSE 83; RESP 18; TEMP 36.4; O2SAT 96
== END 2025-01-07 00:40 | disposition home or self-care (01) ==
PROVIDERS: Nurse Practitioner Family; Emergency Provider Emergency Medicine
DX: K59.04 Chronic idiopathic constipation (principal); R55 Syncope and collapse; R25.2 Cramp and spasm; R11.0 Nausea; R10.2 Pelvic and perineal pain; Z79.899 Other long term (current) drug therapy; Z03.818 Encounter for observation for suspected exposure to other biological agents ruled out
CPT/HCPCS: 0241U; 36415; 74177; 80053; 81003; 83605; 83690; 83735; 84484; 85025; 93005; 96361; 96374; 96375; 96376; 99284; 99285; J2270; J2405; Q9967

== ENCOUNTER → 2025-01-06 19:11 | Outpatient (BNV) | payer OTHER, SELFPAY | PROVIDERS: Emergency Provider Emergency Medicine; Visit Provider Internal Medicine | DX: R55 Syncope and collapse (principal) | CPT/HCPCS: 93010 ==

== ENCOUNTER → 2025-01-06 19:34 | Outpatient (BNV) | payer OTHER, SELFPAY | PROVIDERS: Emergency Provider Emergency Medicine; Visit Provider Radiology Diagnostic Radiology | DX: K63.89 Other specified diseases of intestine (principal) | CPT/HCPCS: 74177 ==

== ENCOUNTER 2025-01-10 09:54 | Outpatient (AMB) | payer OTHER, SELFPAY ==
--- NOTE | 2025-01-10 09:59 | MHC.OFFVIS ---
Vital Signs 01/10/25 10:00 Height 5 ft 4 in Weight 147 lb 8 oz BMI 25.3 BP 106/60 Blood Pressure Location Rt brachial Position Sitting Pulse 84 Pulse Source Pulse Oximeter Pulse Oximetry (%) 96 Oxygen Delivery Method Room Air Intake Visit Reasons: Follow ED 01/06/25,Chronic idiopathic constipation Intake Note: ESTABLISHED PATIENT for mgmt of CIC. Post ED FUV within the last week. CC: C/O constipation, mucus in stool, melena (BRB), rectal pain, LLQ pain. Pt reports passing flatulence and very small amounts of hard stool but is never able to have a complete bowel movement. Pt was told to stop the linzess and start taking motegrity and miralax but this has not been working for her. Optician Manager Required: No Accompanied by: Self / Same As Patient Allergies ketorolac Allergy (Unknown, Verified 01/10/25 10:00) anaphylaxis HPI HPI Follow ED 01/06/25,Chronic idiopathic constipation: Details: Assessment & Plan (1) Gastroparesis: Code(s): K31.84 - Gastroparesis Category: Medical (2) Chronic idiopathic constipation: Code(s): K59.04 - Chronic idiopathic constipation Category: Medical (3) GERD (gastroesophageal reflux disease): Code(s): K21.9 - Gastro-esophageal reflux disease without esophagitis Category: Medical (4) Hypothyroid: Code(s): E03.9 - Hypothyroidism, unspecified Category: Medical Plan She is now suffering severe CIC, she is only taking the Amitza in the am I am not good at taking medicines at night. I suggest that she take #2 8mg tablets in the morning. She is taking the reglan bid at this time. I recommend that she take #2 5mg tablets bid since she till has not appetite and severe CIC. Complicating things, her TSH is very high (she had it drawn in [place]) and this is likely impacting her GI motility as well. She likely needs an increase in her levothyroxine or a referral to beam builder helper. I will order TSH to try to help her move forward. Her brother had an appendectomy recently in [place] and then a perforation. She has the GES upcoming. ROV after GES. Orders: Orders [place] gastric emptying study 09/11/24 K31.84 - Gastroparesis TSH reflex Free T4 Today E03.9 - Hypothyroidism, unspecified, K59.04 - Chronic idiopathic constipation LABS: GASTRIC EMPTYING STUDY 10/02/2024 IMPRESSION: Abnormal 4-hour solid food gastric emptying study.. Grade 1. ER VISIT 01/06/2025 Discharge Clinical Impression: Chronic idiopathic constipation Patient Disposition: Home, Self-Care Instructions: Constipation (ED), High Fiber Diet (ED) Additional Instructions: Continue taking your medication as prescribed by your doctors. Contact the gastroenterology office tomorrow morning to arrange for a follow-up visit. Continue with high-fiber diet, drinking plenty of fluid throughout the day. Prescription for dicyclomine has been sent to the pharmacy to use as needed for abdominal pain/cramping. Return to emergency department any new or worsening symptoms or concerns. Prescriptions: New dicyclomine 10 mg capsule 10 mg PO TID Qty: [address] ABDOMEN AND PELVIS FINDINGS: Small hiatal hernia. Normal liver. Normal spleen. Left renal cyst. Nonobstructing left renal calculus. No visible ureteral calculi. Unremarkable right kidney. No hydronephrosis. Normal adrenal glands. Normal pancreas. No visible cholelithiasis. No biliary dilation. No evidence of bowel obstruction. Mild thickening of the nguyen of the sigmoid colon. No pneumatosis. Normal appendix. Unremarkable bladder. Unremarkable uterus. Trace ascites in the pelvis. No pneumoperitoneum. No lymphadenopathy. No acute fracture. No abdominal aortic aneurysm. IMPRESSION: Sigmoid colon wall thickening, which could be due to colitis. Trace ascites in the pelvis. Nonemergent/incidental findings above. TODAY'S VISIT She was seen in the ER for severe abd pain and CIC with cramping so bad she nearly passed out. She is under the impression that her dx was colitis, but CT is not conclusive for this. She was rx'ed Motegrity via Dr. Barrera with miralax. But she will move her bowel maybe once a week, then nothing. She also is having a lot of clear brown or white mucus. She has to use a pad. With this she is also having daily severe nausea and vomiting. She had been doing better in terms of not having severe pain and having more frequent bowel movements when she was on the Amitiza twice a day. However this was not optimally controlling her symptoms. However since going on the Motegrity she has had severe cramping. I think that Motegrity works largely on only the bowels in terms of motility and her motility problem really starts in the stomach as we have known delayed gastric emptying from a past gastric emptying study. She was also doing better when she was on Reglan which she stopped taking being confused about what medicine she should continue. This combined with the fact that she continues to report ongoing nausea makes me emphasize that we really should be back on this medicine so that we can start the peristalsis from the stomach and stimulated on through the bowel. At this point she is very miserable so now she is more open to taking this medication 4 times a day. Before she was resistant to the difficulty of the dosing regimen and the number of pills a day. I have written out all of the instructions. Because there was trace fluid in the abdomen for which we have uncertain origin I will put her on a course of Augmentin just in case she has a brewing diverticulitis. However, her pain that she describes is rather global over the entire abdomen and not limited just to the descending colon or sigmoid area. I think for now we will keep her on the Motegrity and the MiraLax and again add the Reglan. She also admits to not eating much fiber in her diet so we discussed fiber supplement such as Benefiber or Citrucel. All this is written out for her since she will have to buy the fiber [id number]. Return office visit two weeks as she has been out of work due to these symptoms. [facility] Medical History Esophagitis Sleep apnea Urinary incontinence Elevated cholesterol Fibromyalgia Hypothyroid Diabetes GERD (gastroesophageal reflux disease) Surgical History H/O colonoscopy History of section Hx of tonsillectomy Family History Maternal Aunt Diverticulosis Paternal Aunt H/O colectomy Social History Alcohol intake: never Patient Tobacco Use Status: Never used Tobacco Review of Systems Const Denies fatigue, Denies fever(s), Denies night sweats, Denies poor appetite and Denies weight loss ENT Reports Normal hearing present, Denies dental pain, Denies dysphagia, Denies hearing loss, Denies mouth pain, Denies odynophagia, Denies throat swelling, Denies tongue swelling and Reports other (Dentition adequate) Card Reports no additional complaints Resp Reports no additional complaints GI Details: Reports abdominal pain, Denies melena, Reports bloating, Denies hematochezia, Reports constipation, Reports GI cramping, Denies dysphagia, Denies excessive flatus, Denies early satiety, Reports heartburn, Denies diarrhea, Reports nausea, Denies odynophagia, Reports vomiting and Denies hematemesis Skin/Breast Denies pruritus, Denies lesions, Denies rash and Denies jaundice Neuro Reports Normal hearing present and Denies Abnormal speech present Endo Denies fatigue Aller/Immun Denies throat swelling and Denies tongue swelling Physical Exam Vital Signs: Last Vital Signs Pulse 84 01/10/25 10:00 BP 106/60 01/10/25 10:00 Pulse Ox 96 01/10/25 10:00 Oxygen Delivery Method Room Air 01/10/25 10:00 BMI result Body Mass Index 25.3 Const General: cooperative, no acute distress, well developed and well groomed Nutritional Appearance: average body habitus and well nourished Orientation/consciousness: oriented to person, oriented to place and oriented to time Limitations: language barrier HEENT Head: Yes normocephalic and Yes atraumatic Eyes General: appearance normal, both eyes and all related structures Pupils: Equal, round and reactive pupils present Neck Neck: Yes normal visual inspection and Yes no lymphadenopathy Thyroid: Thyroid normal Resp Effort & Inspection: normal respiratory effort and able to speak in complete sentences Auscultation: clear to auscultation bilaterally Cardio Rate: regular rate Rhythm: regular rhythm Heart sounds: Normal, physiologic split S2 sound present Peripheral pulses: radial pulses present and posterior tibial pulses present GI Inspection: Yes distended and No Abdominal panniculus present Palpation (GI): Soft to palpation, Tenderness to palpation present (GI) (Generalized and global over the entire abdomen), no guarding, not rigid and No hepatosplenomegaly present Percussion: Yes normal to percussion Auscultation: normal bowel sounds Rectal Exam - Female: deferred Skin General skin exam: no rashes or lesions noted, turgor normal, skin not dry, no jaundice, No spider nevi and no striae Rashes: no rashes Nails: normal Neuro General: oriented to person, oriented to place and oriented to time Cranial nerves: Yes Equal, round and reactive pupils present and Yes Normal hearing present Speech: No Abnormal speech present Extrem General: Yes normal to inspection, No clubbing, No cyanosis and No edema Psych Appearance: grossly normal and well kempt Mental Status: mental status grossly normal Speech and movement: Normal speech and movement present Affect: normal affect Attitude: cooperative Thought process: Normal thought process present and not confabulating Thought content: Normal thought content present Insight: Limited insight present (Psych) Judgement: Limited judgement present (Psych) Assessment & Plan Assessment & Plan (1) Chronic idiopathic constipation: Code(s): K59.04 - Chronic idiopathic constipation Category: Medical (2) Gastroparesis: Code(s): K31.84 - Gastroparesis Category: Medical (3) Diverticulitis: Code(s): K57.92 - Diverticulitis of intestine, part unspecified, without perforation or abscess without bleeding Category: Medical (4) Nausea and vomiting: Code(s): R11.2 - Nausea with vomiting, unspecified Category: Medical Plan She was seen in the ER for severe abd pain and CIC with cramping so bad she nearly passed out. She is under the impression that her dx was colitis, but CT is not conclusive for this. She was rx'ed Motegrity via Dr. Barrera with miralax. But she will move her bowel maybe once a week, then nothing. She also is having a lot of clear brown or white mucus. She has to use a pad. With this she is also having daily severe nausea and vomiting. She had been doing better in terms of not having severe pain and having more frequent bowel movements when she was on the Amitiza twice a day. However this was not optimally controlling her symptoms. However since going on the Motegrity she has had severe cramping. I think that Motegrity works largely on only the bowels in terms of motility and her motility problem really starts in the stomach as we have known delayed gastric emptying from a past gastric emptying study. She was also doing better when she was on Reglan which she stopped taking being confused about what medicine she should continue. This combined with the fact that she continues to report ongoing nausea makes me emphasize that we really should be back on this medicine so that we can start the peristalsis from the stomach and stimulated on through the bowel. At this point she is very miserable so now she is more open to taking this medication 4 times a day. Before she was resistant to the difficulty of the dosing regimen and the number of pills a day. I have written out all of the instructions. Because there was trace fluid in the abdomen for which we have uncertain origin I will put her on a course of Augmentin just in case she has a brewing diverticulitis. However, her pain that she describes is rather global over the entire abdomen and not limited just to the descending colon or sigmoid area. I think for now we will keep her on the Motegrity and the MiraLax and again add the Reglan. She also admits to not eating much fiber in her diet so we discussed fiber supplement such as Benefiber or Citrucel. All this is written out for her since she will have to buy the fiber [id number]. Return office visit two weeks as she has been out of work due to these symptoms. Medications: New metoclopramide HCl (Reglan) 5 mg PO QID 120 tabs 6RF K31.84 - Gastroparesis, K59.04 - Chronic idiopathic constipation amoxicillin-pot clavulanate 875-125 mg 1 tab PO BID 10 tabs 0RF K57.92 - Diverticulitis of intestine, part unspecified, without perforation or abscess without bleeding hydrocortisone 2.5% (Proctosol HC) BE SURE TO INCLUDE RECTAL APPICATOR!! 1 appl [place] BID 30 grams 6RF hemorrhoids K64.9 - Unspecified hemorrhoids Refilled prucalopride (Motegrity) 1 mg PO DAILY 90 days 90 tabs 1RF Discontinued dicyclomine Discontinued Reason: Doctor's Order 10 mg PO TID 20 caps 0RF Patient Instructions: Bianca Neville 1.? Continue the motegrity daily and the miralax 2.Start taking the metoclopramide 4 times a day, at breakfast time, lunch time, supper time and bedtime. 3.Start a fiber supplement like metamucil (this gets thick but is cheap), Benefiber or Citrucel (they do not get thick and are tasteless) and take in water or juice twice a day. 4.I am starting you on an antibiotic for 10 days I want to see you in 2 weeks. Coding Level of Care Code Est Pt Level 4 (75306) Diagnoses Chronic idiopathic constipation K59.04 Gastroparesis K31.84 Diverticulitis K57.92 Nausea and vomiting R11.2 Time Spent (min) 39
[2025-01-10 10:00] VITALS: BP 106/60; PULSE 84; O2SAT 96; BMI 25.3
--- OUTSIDE RECORDS SUMMARY | 2025-01-10 10:49 | XMS_ITS | Encounter Summary ---
Author Organization [employer] Address [address] [place] [address] Care Team Providers Care Loom Repairer Name Role Phone Unavailable Primary Care Provider Unavailabl e Encounter Details Date Type Department Care Team (Latest Contact Info) Description 11/15/2018 Abstract [facility] CONVERSIONS Dental, Provider, DDS Social History [...] Description 06/03/2025 1:00 PM EDT Office Visit [facility] [address] [place] [address] RicardoBalajiRocio [address] [place] [address] documented as of this encounter Visit Diagnoses Not on filedocumented in this encounter
--- OUTSIDE RECORDS SUMMARY | 2025-01-10 10:49 | XMS_ITS | Clinical Summary ---
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
--- OUTSIDE RECORDS SUMMARY | 2025-01-10 10:49 | XMS_ITS | Data Portability ---
Author Organization ANGELIC Zapien s, [address] Address [address] [place] [address] Assessment No assessment recorded. Plan of Treatment Reminders Order Date Submit Date Provider Last Modified By Organization Details Last Modified Time Details Appointments None recorded. Lab rapid flu (A+B) 2023 024 [email or web address] [facility] [address], [address] [place], [address], 4 17:04:41 SARS CoV 2 (COVID-19) Ag, QL, IA, upper respiratory specimen 2023 024 [email or web address] [facility] [address], [address] [place], [address], 4 17:04:42 urinalysis, dipstick 2023 024 [email or web address] [facility] [address], [address] [place], [address], 4 17:04:44 culture, urine 2023 024 [place] [facility] ([facility], [address] [place] [address], [place], [address], 06:06:26 Referral None recorded. Procedures None recorded. Surgeries None recorded. Imaging None recorded. Medication Orders ondansetron 4 mg disintegrat ing tablet 2023 024 [email or web address] Not available 17:04:33 ondansetron 4 mg disintegrat ing tablet 2023 024 [email or web address] [id number], [address] [place] [address], [place], [address], 17:04:33 Patient TargetsNo targets recorded. Patient Instructions Encounter Date Encounter Id Patient Instructions Last Modified By Organization Details Last Modified Time 12/10/2023 [id number] nausea and vomiting: care instructions Not available [...] much worse, you should seek treatment immediately. [email or web address] Not available 12/10/2023 16:46:45 Reason for Referral None Reported. Results Created Date Observation Date Name Description Value Unit Range Abnormal Flag Note LastModifiedBy Organization Detail LastModifiedTime 12/10/1912/12/2023 URINE CULTU REYENI urine culture, routine FINAL REPORT Not Available [facility] ([facility]) [address] [place], [address], 12/12/2023 06:06:26 12/10/19 24 12/12/2023 URINE CULTU REYENI result 1 COMMEN T Cultu re shows less than 10,00 0 colon y formi ng units of bacte mariola per rivera liter of urine . This colon y count is not gener ally consi dered to be clini weston signi fican t. Not Available [facility] ([facility]) [address] [place] [address], [address], 12/12/2023 06:06:26 12/10/19 24 12/10/2023 urina lysis , dipst ick Unknown Analyte Normal = light yellow Not Available [facility] [address] [place], [address], 12/10/2023 16:50:53 12/10/19 24 12/10/2023 urina lysis , dipst ick Unknown Analyte Yellow Not Available [facility] [address] [place], [address], 12/10/2023 16:50:53 12/10/19 24 12/10/2023 urina lysis , dipst ick Unknown Analyte Normal = clear Not Available [facility] [place], [address], 12/10/2023 16:50:53 12/10/19 24 12/10/2023 urina lysis , dipst ick Unknown Analyte Clear Not Available [facility] [address] [place], [address], 12/10/2023 16:50:53 12/10/19 24 12/10/2023 urina lysis , dipst ick Unknown Analyte Normal = negati ve Not Available [address] [place], [address], 12/10/2023 16:50:53 12/10/19 24 12/10/2023 urina lysis , dipst ick Unknown Analyte Negati ve Not Available sprin [address] [place], [address], 12/10/2023 16:50:53 12/10/19 24 12/10/2023 urina lysis , dipst ick Unknown Analyte Normal = Negati ve Not Available [address] [place], [address], 12/10/2023 16:50:53 12/10/19 24 12/10/2023 urina lysis , dipst ick Unknown Analyte Small Not Available [facility] [address] [place], [address], 12/10/2023 16:50:53 12/10/19 24 12/10/2023 urina lysis , dipst ick Unknown Analyte Normal = Negati ve Not Available [facility] [place], [address], 12/10/2023 16:50:53 12/10/19 24 12/10/2023 urina lysis , dipst ick Unknown Analyte Negati ve Not Available [facility] [place], [address], 12/10/2023 16:50:53 12/10/19 24 12/10/2023 urina lysis , dipst ick Unknown Analyte Normal = 1.010, 1.015, 1.020 Not Available [address] [place], [address], 12/10/2023 16:50:53 12/10/19 24 12/10/2023 urina lysis , dipst ick Unknown Analyte 1.030 Not Available [address] [place] [address] [address] [place], [address], 12/10/2023 16:50:53 12/10/19 24 12/10/2023 urina lysis , dipst ick Unknown Analyte Normal = Negati ve Not Available [address] [place], [address], 12/10/2023 16:50:53 12/10/19 24 12/10/2023 urina lysis , dipst ick Unknown Analyte Negati ve Not Available [address] [place], [address], 12/10/2023 16:50:53 12/10/19 24 12/10/2023 urina lysis , dipst ick Unknown Analyte Normal = 6.5, 7.0, 7.5, 8.0 Not Available [address] [place], [address], 12/10/2023 16:50:53 12/10/19 24 12/10/2023 urina lysis , dipst ick Unknown Analyte 5.5 Not Available _ [address] [place], [address], 12/10/2023 16:50:53 12/10/19 24 12/10/2023 urina lysis , dipst ick Unknown Analyte Normal = Negati ve Not Available [address] [place], [address], 12/10/2023 16:50:53 12/10/19 24 12/10/2023 urina lysis , dipst ick Unknown Analyte Negati ve Not Available [address] [place], [address], 12/10/2023 16:50:53 12/10/19 24 12/10/2023 urina lysis , dipst ick Unknown Analyte Normal = 0.2, 1.0 Not Available [address] [place], [address], 12/10/2023 16:50:53 12/10/19 24 12/10/2023 urina lysis , dipst ick Unknown Analyte Normal = Negati ve Not Available [address] [place], [address], 12/10/2023 16:50:53 12/10/19 24 12/10/2023 urina lysis , dipst ick Unknown Analyte Negati ve Not Available f[address]ia [address] [place], [address], 12/10/2023 16:50:53 12/10/19 24 12/10/2023 urina lysis , dipst ick Unknown Analyte Normal = Negati ve Not Available [address] qu[address]i [address] [place], [address], 12/10/2023 16:50:53 12/10/19 24 12/10/2023 urina lysis , dipst ick Unknown Analyte Negati ve Not Available [address] [place], [address], 12/10/2023 16:50:53 12/10/19 24 12/10/2023 urina lysis , dipst ick Unknown Analyte 0.2 E.U./d L Not Available [facility] [place], [address], 12/10/2023 16:50:53 12/10/19 24 12/10/2023 SARS CoV 2 (COVI D-19) Ag, QL, IA, upper respi rator y speci men Unknown Analyte negati ve Not Available [address] [place], [address], 12/10/2023 16:50:43 12/10/19 24 12/10/2023 SARS CoV 2 (COVI D-19) Ag, QL, IA, upper respi rator y speci men Unknown Analyte yes Not Available [facility] [address] [place], [address], 12/10/2023 16:50:43 12/10/19 24 12/10/2023 rapid flu (A+B) Unknown Analyte negati ve Not Available [address] [place], [address], 12/10/2023 16:50:34 12/10/19 24 12/10/2023 rapid flu (A+B) Unknown Analyte negati ve Not Available [address] [place], [address], 12/10/2023 16:50:34 12/10/19 24 12/10/2023 rapid flu (A+B) Unknown Analyte Not Available [address]_ [facility] [address] [place], [address], 12/10/2023 16:50:34 Result Notes None recorded. Problems Name Problem SNOMED Code Status Onset Date Resolution Date Notes Provider Name and Address Organization Details Recorded Time Fibromyalgia 322357195 Active ANGELIC Barragan [facility] 4 16:49:49 Disorder of thyroid gland 86949612 Active ANGELIC Barragan [facility] 4 16:50:00 Problem Notes None recorded. Medical Equipment None Reported. Allergies Allergen ID Allergen Name Allergen Category Reaction Reaction Severity Criticality Documentation Date Start Date Code Code System Note Provider Name and Address Organization Details Recorded Time 560884 Toradol medicatio n Not available Not available Not available 12/10/2023 55768 RxNorm Yesenia jensen [place] [facility] [...] Details Last Updated DateTime 4 162.56 cm 52714.7 4 g 99 % 99 % 91 /min 18 /min 96.2 [degF] 116 mm[Hg] 77 mm[Hg] [facility]idu [place] [facility] 16:47:53 Date Recorded Body height Body mass index (BMI) Body weight Oxygen saturation Oxygen saturation in Arterial blood by Pulse oximetry Heart rate Respiratory rate Body temperature Systolic blood pressure Diastolic blood pressure Provider Name and Address Organization Details Last Updated DateTime 4 162.56 cm 27.5 kg/m2 72538.7 8 g 96 % 96 % 84 /min 18 /min 97.4 [degF] 101 mm[Hg] 68 mm[Hg] Bia Rosenberg [facility] 13:14:07 Social History Question Answer Notes LastModified by Organizat ion Details LastModified Time Tobacco Smoking Status Never Smoker Yesenia jensen [place] - [facility] 12/10/2023 16:50:21 What Is Your Level Of Alcohol Consumption? None [email or web address] Information not available 12/10/2023 Are You Currently Employed? Yes Information not available 12/17/2023 Have You Had A Flu Shot This Season? Yes Information not available 12/17/2023 What Was The Date Of Your Most Recent Tobacco Screening? 12/10/2023 [email or web address] Information not available 12/10/2023 What Is Your Relationship Status? Single Information not available 12/17/2023 Are You Currently In School? No Information not available 12/17/2023 Do You Or Have You Ever Used Any Other Forms Of Tobacco Or Nicotine? No [email or web address] Information not available 12/10/2023 Sex: Unknown Functional Status None recorded. Mental Status None recorded. Family History Relationship Description Onset Age of this Age Resolved Age Notes LastModified by Organization Details LastModified Time Father No current problems or disability [email or web address] Not available 02/2024 16:50:10 Mother No current problems or disability Not available 02/2024 16:50:10 Medical History No medical history recorded. Gynecological HistoryNo gynecological history recorded. Obstetrics History GPAL:G 0 P 0 0 0 0 Past Encounters Encounter ID Performer Location Encounter Start Date Encounter Closed Date Diagnosis/Indication Diagnosis SNOMED-CT Code Diagnosis ICD10 Code Diagnosis Note [id number] [facility] [address] [place] [address] 2019 15:06:30 2019 17:03:48 [id number] [facility] [facility] [address] [place] [address] 05/17/2021 10:22:51 05/17/2021 13:44:56 [id number] [address] [address] [place] [address] 11/27/2018 13:40:56 11/27/2018 14:23:10 [id number] [address] [facility] [address] [place] [address] 02/18/2020 10:11:47 02/18/2020 11:06:53 [id number] [place] [address] [place] [address] 12/10/2023 16:29:01 12/10/2023 17:29:38 Nausea and vomiting 84425123 R11.2 VSS and she does not have [...] agreement with the plan as outlined above. [id number] ANGELIC Barr [address] [address] [facility] MARLA kong [address] 12/17/2023 13:01:46 12/17/2023 13:29:02 Viral gastroenteritis 317302676 A08.4 Based on you exam and presentati [...] Blood in Urine. Thank you for using [facility] , please feel free to contact us if you have any questions or concerns. Health Concerns Section Related Observation LastModified by Organization Detai ls LastModified Time None Recorded Concern Status LastModified by Organization Details LastModified Time None Recorded Advance Directives Directive None Recorded Payers Insurance Date Sequence Insurance Name Policy Number Policy Capps Covered Member ID Capps Member ID Guarantor Name 12/17/2023 1 [employer] [facility] (EPO) [id number] Bianca Alarcon [id number] Bianca robb 12/10/2023 1 [facility] (O) [id number] Bianca Alarcon [id number] Bianca Alarcon-Venecia robb Notes Date Note Type Note Provider Name and Address Organization Details Recorded Time 12/10/2023 text/html Nausea / Vomitin g UCReported bypatient.Notes:58 yo female c/o nausea, abdominal pain x 1 dconstipation x 1 dvomiting x 8 times since this morningstarted after eating a tuna sandwich no blood in vomit last vomited 1 h [employer] last PO yesterday last BM yesterday. no [...] Royal Whitlock DO [address] [place], [address], PA - [facility] 12/10/2023 17:13:10 12/17/2023 text/html 58 y/o female he re with continued abdominal pain with gastro virus starting last week. Starting to feel a bit better, but wants to make sure she's on the right past ANGELIC Barr [address] [place], [address], PA - [facility] 12/17/2023 13:27:00 OBGyn Episode No OBEpisode recorded.
--- OUTSIDE RECORDS SUMMARY | 2025-01-10 10:49 | XMS_ITS | Encounter Summary ---
Author Organization [employer] Address [address] [facility] [address]t [place] [address] Care Team Providers Care Plush Brusher Name Role Phone Unavailable Primary Care Provider Unavailabl e Encounter Details Date Type Department Care Team (Latest Contact Info) Description 06/18/2020 Abstract [facility] CONVERSIONS Dental, Provider, DDS Social History Tobacco [...] Office Visit [facility] ADULT DENTAL [address] [place] [address] RicardoBalajiRocio [address] [place] [address] documented as of this encounter Visit Diagnoses Not on filedocumented in this encounter
--- OUTSIDE RECORDS SUMMARY | 2025-01-10 10:49 | XMS_ITS | Continuity of Care Document ---
Author Organization [facility] Address [address] [place] [address] Phone Care Team Providers Care Battery Plate Remover Name Role Phone Ezekiel Cobian MD, ABSKerline, [...] Copied on Encounter [facility] , [address] [place] [address], [address], [place] tel:[phone] [facility] No Information 4 Mango Matthews. [address] [place] [address], [id number] , [place]. tel:[phone] [facility] , [address] [place] [address], [address], [place] tel:[phone] [facility] No Information 3 Mango Matthews. [address] [place] [address], [id number] , [place]. tel:[phone] [facility] , [address] [place] [address], [facility], [place] tel:[phone] [facility] No Information 3 Mango Matthews. [address] [place] [address], [id number] , [place]. tel:[phone] Referring Provider: PCP No. [facility] , [address] [place] [address], [facility], [place] tel:[phone] [facility] No Information 3 Mango Matthews. [address] [place] [address], [id number] , [place]. tel:[phone] Referring Provider: Cassie Churchill, [address] [place] [address], [address] . tel:[phone] New Pt Ov Level 4 [facility] , [address] [place] [address], [address], [place] tel:[phone] [facility] Body mass index (BMI) 28.0-28.9, adultObstructive sleep apnea (adult) (pediatric)Psychophy siologic insomniaFibromyalgia Apr- 3 Mango Matthews. [address] [place] [address], [id number] , [place]. tel:[phone] Referring Provider: Marleny franks MD, [address] [place], [address]. tel:[phone] Family History Family Member Type Diagnosis Age [...] Covered constitution party ID Clive keys(s) [employer] [id number] Social History Type Description Quantity Date Captured [...]
== END 2025-01-10 10:44 | disposition home or self-care (01) ==
LOC: HO.HGI 09:55
PROVIDERS: Visit Provider Nurse Practitioner
DX: K59.04 Chronic idiopathic constipation (principal); K31.84 Gastroparesis; K57.92 Diverticulitis of intestine, part unspecified, without perforation or abscess without bleeding; R11.2 Nausea with vomiting, unspecified
CPT/HCPCS: 99214

== ENCOUNTER → 2025-01-10 09:54 | Outpatient (BNVA) | payer OTHER, SELFPAY | PROVIDERS: Visit Provider Nurse Practitioner | DX: K59.04 Chronic idiopathic constipation (principal) ==

== ENCOUNTER 2025-01-10 11:17 | Outpatient (REF) | payer OTHER, SELFPAY ==
--- OUTSIDE RECORDS SUMMARY | 2025-01-10 12:49 | XMS_ITS | Encounter Summary ---
Author Organization [employer] Address [address] [facility] [address]t [place] [address] Care Team Providers Care Ruby On Rails Web Developer Name Role Phone Unavailable Primary Care Provider Unavailabl e Encounter Details Date Type Department Care Team (Latest Contact Info) Description 06/18/2020 Abstract [facility] CONVERSIONS Dental, Provider, DDS Social History [...] Description 06/03/2025 1:00 PM EDT Office Visit [facility] ADULT DENTAL [address] [place] [address] RicardoBalajiRocio [address] [place] [address] documented as of this encounter Visit Diagnoses Not on filedocumented in this encounter
--- OUTSIDE RECORDS SUMMARY | 2025-01-10 12:49 | XMS_ITS | Encounter Summary ---
Author Organization [employer] Address [address] [facility] 7t [place] [address] Care Team Providers Care Roll Form Operator Name Role Phone Unavailable Primary Care Provider Unavailabl e Encounter Details Date Type Department Care Team (Latest Contact Info) Description 11/15/2018 Abstract [facility] CONVERSIONS Dental, Provider, DDS Social History Tobacco [...] Description 06/03/2025 1:00 PM EDT Office Visit [facility] ADULT DENTAL [address] [place] [address] RicardoBalajiRocio [address] [place] [address] documented as of this encounter Visit Diagnoses Not on filedocumented in this encounter
--- OUTSIDE RECORDS SUMMARY | 2025-01-10 12:49 | XMS_ITS | Clinical Summary ---
Author Organization [employer] Address [address] [facility] [address]t [place] [address] Care Team Providers Care Finishing Powder Press Operator Name Role Phone Unavailable Primary Care [...] Description 11/26/2024 2:00 PM EDT Office Visit [facility] ADULT DENTAL [address] [place] [address] Rocio Silva Dental calculus (Primary Dx); Crowded [...] Description 06/03/2025 1:00 PM EDT Office Visit [facility] ADULT D[facility]AL [address] [place] [address] Rocio Silva [address] [place] [address] Health Maintenance Due Date Last Done Comments [...] Most Recently Relevant to Health Maintenance [place] [address] [place] [address]
--- OUTSIDE RECORDS SUMMARY | 2025-01-10 12:49 | XMS_ITS | Continuity of Care Document ---
Author Organization [facility] Address [address] [place] [address] Phone Care Team Providers Care Recyclable Materials Sorter Name Role Phone Ezekiel Cobian MD, ABSKerline, [...] Copied on Encounter [facility] , [address] [place] [address], [address], [place] tel:[phone] [facility] No Information 4 Mango Matthews. [address] [place] [address], [id number] , [place]. tel:[phone] [facility] , [address] [place] [address], [address], [place] tel:[phone] [facility] No Information 3 Mango Matthews. [address] [place] [address], [id number] , [place]. tel:[phone] [facility] , [address] [place] [address], [facility], [place] tel:[phone] [facility] No Information 3 Mango Matthews. [address] [place] [address], [id number] , [place]. tel:[phone] Referring Provider: PCP No. [facility] , [address] [place] [address], [facility], [place] tel:[phone] [facility] No Information 3 Mango Matthews. [address] [place] [address], [id number] , [place]. tel:[phone] Referring Provider: Cassie Churchill, [address] [place] [address], [address] . tel:[phone] New Pt Ov Level 4 [facility] , [address] [place] [address], [address], [place] tel:[phone] [facility] Body mass index (BMI) 28.0-28.9, adultObstructive sleep apnea (adult) (pediatric)Psychophy siologic insomniaFibromyalgia Apr- 3 Mango Matthews. [address] [place] [address], [id number] , [place]. tel:[phone] Referring Provider: Marleny franks MD, [address] [place], [address]. tel:[phone] Family History Family Member Type Diagnosis Age [...] Covered green party ID Clive keys(s) [employer] [id number] Social History Type Description Quantity Date Captured [...]
[2025-01-10 12:57] LABS: Thyroid Stimulating Hormone < 0.01 uIU/mL (0.32-4.0)
== END 2025-01-10 11:18 | disposition home or self-care (01) ==
LOC: HO.LAB 11:17
PROVIDERS: PCP Nurse Practitioner Family; Visit Provider Nurse Practitioner Family
DX: E03.9 Hypothyroidism, unspecified (principal)
CPT/HCPCS: 36415; 84443

== ENCOUNTER 2025-02-01 14:35 | Outpatient (AMB) | payer OTHER, SELFPAY ==
--- OUTSIDE RECORDS SUMMARY | 2025-02-01 14:38 | XMS_ITS | Continuity of Care Document ---
Author Organization [facility] Address [address] [place] [address] Phone Care Team Providers Care Long Term Care Phlebotomist Name Role Phone Ezekiel Cobian MD, ABSKerline, [...] Copied on Encounter [facility] , [address] [place] [address], [address], [place] tel:[phone] [facility] No Information 4 Mango Matthews. [address] [place] [address], [id number] , [place]. tel:[phone] [facility] , [address] [place] [address], [address], [place] tel:[phone] [facility] No Information 3 Mango Matthews. [address] [place] [address], [id number] , [place]. tel:[phone] [facility] , [address] [place] [address], [facility], [place] tel:[phone] [facility] No Information 3 Mango Matthews. [address] [place] [address], [id number] , [place]. tel:[phone] Referring Provider: PCP No. [facility] , [address] [place] [address], [facility], [place] tel:[phone] [facility] No Information 3 Mango Matthews. [address] [place] [address], [id number] , [place]. tel:[phone] Referring Provider: Cassie Churchill, [address] [place] [address], [address] . tel:[phone] New Pt Ov Level 4 [facility] , [address] [place] [address], [address], [place] tel:[phone] [facility] Body mass index (BMI) 28.0-28.9, adultObstructive sleep apnea (adult) (pediatric)Psychophy siologic insomniaFibromyalgia Apr- 3 Mango Matthews. [address] [place] [address], [id number] , [place]. tel:[phone] Referring Provider: Marleny franks MD, [address] [place], [address]. tel:[phone] Family History Family Member Type Diagnosis Age [...] Covered green party ID Clive keys(s) [employer] [id number] Social History Type Description Quantity Date Captured [...]
--- NOTE | 2025-02-01 14:41 | A.OFFVIS_ITS ---
Vital Signs 02/01/25 14:44 Height 5 ft 4 in Weight 151 lb BMI 25.9 BP 110/58 L Blood Pressure Location Rt brachial Position Sitting Pulse 84 Pulse Source Pulse Oximeter Pulse Oximetry (%) 99 Oxygen Delivery Method Room Air Intake Visit Reasons: 30 min per December. 2wks severe CIC Intake Note: ESTABLISHED PATIENT for mgmt of severe CIC + gastroparesis. CC; C.O. persistence of constipation and bloating. Pt states that she has noticed a definitive improvement in her appetite and general well being. Still experiencing constipation w/o concern for hemorrhoids at this time. 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 2wks severe CIC: Details: Assessment & Plan (1) Chronic idiopathic constipation: Code(s): K59.04 - Chronic idiopathic constipation Category: Medical (2) Gastroparesis: Code(s): K31.84 - Gastroparesis Category: Medical (3) Diverticulitis: Code(s): K57.92 - Diverticulitis of intestine, part unspecified, without perforation or abscess without bleeding Category: Medical (4) Nausea and vomiting: Code(s): R11.2 - Nausea with vomiting, unspecified Category: Medical Plan She was seen in the ER for severe abd pain and CIC with cramping so bad she nearly passed out. She is under the impression that her dx was colitis, but CT is not conclusive for this. She was rx'ed Motegrity via Dr. Barrera with miralax. But she will move her bowel maybe once a week, then nothing. She also is having a lot of clear brown or white mucus. She has to use a pad. With this she is also having daily severe nausea and vomiting. She had been doing better in terms of not having severe pain and having more frequent bowel movements when she was on the Amitiza twice a day. However this was not optimally controlling her symptoms. However since going on the Motegrity she has had severe cramping. I think that Motegrity works largely on only the bowels in terms of motility and her motility problem really starts in the stomach as we have known delayed gastric emptying from a past gastric emptying study. She was also doing better when she was on Reglan which she stopped taking being confused about what medicine she should continue. This combined with the fact that she continues to report ongoing nausea makes me emphasize that we really should be back on this medicine so that we can start the peristalsis from the stomach and stimulated on through the bowel. At this point she is very miserable so now she is more open to taking this medication 4 times a day. Before she was resistant to the difficulty of the dosing regimen and the number of pills a day. I have written out all of the instructions. Because there was trace fluid in the abdomen for which we have uncertain origin I will put her on a course of Augmentin just in case she has a brewing diverticulitis. However, her pain that she describes is rather global over the entire abdomen and not limited just to the descending colon or sigmoid area. I think for now we will keep her on the Motegrity and the MiraLax and again add the Reglan. She also admits to not eating much fiber in her diet so we discussed fiber supplement such as Benefiber or Citrucel. All this is written out for her since she will have to buy the fiber [id number]. Return office visit two weeks as she has been out of work due to these symptoms. Medications: New metoclopramide HCl (Reglan) 5 mg PO QID 120 tabs 6RF K31.84 - Gastroparesis, K59.04 - Chronic idiopathic constipation amoxicillin-pot clavulanate 875-125 mg 1 tab PO BID 10 tabs 0RF K57.92 - Diverticulitis of intestine, part unspecified, without perforation or abscess without bleeding hydrocortisone 2.5% (Proctosol HC) BE SURE TO INCLUDE RECTAL APPICATOR!! 1 appl ME BID 30 grams 6RF hemorrhoids K64.9 - Unspecified hemorrhoids Refilled prucalopride (Motegrity) 1 mg PO DAILY 90 days 90 tabs 1RF Discontinued dicyclomine Discontinued Reason: Doctor's Order 10 mg PO TID 20 caps 0RF CORRESPONDENCE On 01/11/25 @ 09:48 Rigoberto Pitts Wrote To Grace Pineda STP. She is apprehensive but agreeable to the plan and will call to advise us of any changes. On 01/11/25 @ 09:39 Grace Pineda Wrote To Rigoberto Pitts There is no alternative to Reglan therefore we start the medication and monitor the patient. Because she is on a very low dose the possibility of severe reaction is limited and rare. He has ask her to begin therapy and if anything happens she should call the office immediately. On 01/10/25 @ 15:13 Rigoberto Pitts Wrote To Pt called to report notice from the pharmacy with regard to her Reglan. Pharmacy informed pt that there may be a severe medication interaction with her Duloxetine and the Reglan and would like to discuss this with the provider. Please advise if we should continue with this medication or consider an alternative. TODAY'S VISIT She has not been using the motegrity as she was confused about what to take. She is tolerating the metoclopramide, but still not moving her bowels daily. She IS taking miralax and I think we need to layer all of this together with the motegiry before considering any dose adjustment with Reglan. (she is on cymbalta). She frequently needs to take the protonix bid, will rx this way but better bowel motility will likely help this as well. ROV 3 weeks. [facility] Medical History Esophagitis Sleep apnea Urinary incontinence Elevated cholesterol Fibromyalgia Hypothyroid Diabetes GERD (gastroesophageal reflux disease) Surgical History H/O colonoscopy History of section Hx of tonsillectomy Family History Maternal Aunt Diverticulosis Paternal Aunt H/O colectomy Social History Alcohol intake: never Patient Tobacco Use Status: Never used Tobacco Review of Systems Const Denies fatigue, Denies fever(s), Denies night sweats, Denies poor appetite and Denies weight loss Eyes Details: glasses Reports requires corrective lenses ENT Reports Normal hearing present, Denies dental pain, Denies dysphagia, Denies hearing loss, Denies mouth pain, Denies odynophagia, Denies throat swelling, Denies tongue swelling and Reports other (Dentition adequate) Card Reports no additional complaints Resp Reports no additional complaints GI Details: Denies abdominal pain, Denies melena, Reports bloating, Denies hematochezia, Reports constipation, Denies GI cramping, Denies dysphagia, Denies excessive flatus, Denies early satiety, Reports heartburn, Denies diarrhea, Reports nausea, Denies odynophagia, Denies vomiting and Denies hematemesis Skin/Breast Denies pruritus, Denies lesions, Denies rash and Denies jaundice Neuro Reports Normal hearing present and Denies Abnormal speech present Endo Denies fatigue Aller/Immun Denies throat swelling and Denies tongue swelling Physical Exam Vital Signs: Last Vital Signs Pulse 84 02/01/25 14:44 BP 110/58 L 02/01/25 14:44 Pulse Ox 99 02/01/25 14:44 Oxygen Delivery Method Room Air 02/01/25 14:44 BMI result Body Mass Index 25.9 Const General: cooperative, no acute distress, well developed and well groomed Nutritional Appearance: average body habitus and well nourished Orientation/consciousness: oriented to person, oriented to place and oriented to time Limitations: No language barrier HEENT Head: Yes normocephalic and Yes atraumatic Eyes General: appearance normal, both eyes and all related structures Pupils: Equal, round and reactive pupils present Neck Neck: Yes normal visual inspection and Yes no lymphadenopathy Thyroid: Thyroid normal Resp Effort & Inspection: normal respiratory effort and able to speak in complete sentences Auscultation: clear to auscultation bilaterally Cardio Rate: regular rate Rhythm: regular rhythm Heart sounds: Normal, physiologic split S2 sound present Peripheral pulses: radial pulses present and posterior tibial pulses present GI Inspection: No distended and No Abdominal panniculus present Palpation (GI): Soft to palpation, nontender, no guarding, not rigid and No hepatosplenomegaly present Percussion: Yes normal to percussion Auscultation: normal bowel sounds Rectal Exam - Female: deferred Skin General skin exam: no rashes or lesions noted, turgor normal, skin not dry, no jaundice, No spider nevi and no striae Rashes: no rashes Nails: normal Neuro General: oriented to person, oriented to place and oriented to time Cranial nerves: Yes Equal, round and reactive pupils present and Yes Normal hearing present Speech: No Abnormal speech present Extrem General: Yes normal to inspection, No clubbing, No cyanosis and No edema Psych Appearance: grossly normal and well kempt Mental Status: mental status grossly normal Speech and movement: Normal speech and movement present Affect: normal affect Attitude: cooperative Thought process: Normal thought process present and not confabulating Thought content: Normal thought content present Insight: Fair insight present (Psych) Judgement: Fair judgement present (Psych) Assessment & Plan Assessment & Plan (1) Chronic idiopathic constipation: Code(s): K59.04 - Chronic idiopathic constipation Category: Medical (2) GERD (gastroesophageal reflux disease): Code(s): K21.9 - Gastro-esophageal reflux disease without esophagitis Category: Medical (3) Nausea and vomiting: Code(s): R11.2 - Nausea with vomiting, unspecified Category: Medical (4) Erosive esophagitis: Code(s): K22.10 - Ulcer of esophagus without bleeding Category: Medical (5) Gastroparesis: Code(s): K31.84 - Gastroparesis Category: Medical Plan She has not been using the motegrity as she was confused about what to take. She is tolerating the metoclopramide, but still not moving her bowels daily. She IS taking miralax and I think we need to layer all of this together with the motegiry before considering any dose adjustment with Reglan. (she is on cymbalta). She frequently needs to take the protonix bid, will rx this way but better bowel motility will likely help this as well. ROV 3 weeks. Medications: New polyethylene glycol 3350 (Miralax) 17 grams PO DAILY 238 grams 6RF Changed From pantoprazole 40 mg PO DAILY 90 tabs 1RF To pantoprazole 40 mg PO BID 180 tabs 1RF Refilled prucalopride (Motegrity) 1 mg PO DAILY 90 tabs 1RF 90 days Coding Level of Care Code Est Pt Level 3 (68827) Diagnoses Chronic idiopathic constipation K59.04 GERD (gastroesophageal reflux disease) K21.9 Nausea and vomiting R11.2 Erosive esophagitis K22.10 Gastroparesis K31.84
[2025-02-01 14:44] VITALS: BP 110/58; PULSE 84; O2SAT 99; BMI 25.9
== END 2025-02-01 15:26 | disposition home or self-care (01) ==
LOC: HO.HGI 14:35
PROVIDERS: Visit Provider Nurse Practitioner
DX: K59.04 Chronic idiopathic constipation (principal); K21.9 Gastro-esophageal reflux disease without esophagitis; R11.2 Nausea with vomiting, unspecified; K22.10 Ulcer of esophagus without bleeding; K31.84 Gastroparesis
CPT/HCPCS: 99213

== ENCOUNTER 2025-02-01 15:34 | Outpatient (REF) | payer OTHER, SELFPAY ==
--- NOTE | ~2025-02-01 | XR_ITS ---
CLINICAL HISTORY: DEGENERATIVE JOINT DISEASE, PAIN RT UPPER EXT --- Additional Notes or Special Instr uctions: AP AND LAT Two views of the cervical spine. COMPARISON: None FINDINGS: Normal vertebral body alignment. No evidence of acute vertebral body injury. Small marginal osteophytes present along the mid to lower cervical spine. Mild facet joint arthrosis in the mid to lower cervical spine. Visualized paravertebral soft tissues and lung apices are unremarkable. IMPRESSION: 1. No radiographic evidence of acute injury to the cervical spine. 2. Mild mid to lower cervical spondylosis. This document has been electronically signed by: Tico Devries MD on 02/04/2025 16:49:27
== END 2025-02-01 15:35 | disposition home or self-care (01) ==
LOC: HO.XRAY 15:34
PROVIDERS: Visit Provider Physical Medicine & Rehabilitation
DX: M54.2 Cervicalgia (principal)
CPT/HCPCS: 72040

== ENCOUNTER → 2025-02-01 15:37 | Outpatient (BNV) | payer OTHER, SELFPAY | PROVIDERS: Visit Provider Radiology Diagnostic Radiology | DX: M50.30 Other cervical disc degeneration, unspecified cervical region (principal) | CPT/HCPCS: 72040 ==

== ENCOUNTER 2025-02-08 13:35 | Outpatient (REF) | payer OTHER, SELFPAY ==
--- OUTSIDE RECORDS SUMMARY | 2025-02-08 13:40 | XMS_ITS | Continuity of Care Document ---
Author Organization [facility] Address [address] [place] [address] Phone Care Team Providers Care Accounts Payable Professional Name Role Phone Ezekiel Cobian MD, ABSKerline, [...] Copied on Encounter [facility] , [address] [place] [address], [id number], [place] tel:[phone] [facility] No Information 4 Mango Matthews. [address] [place] [address], [id number] , [place]. tel:[phone] [facility] , [address] [place] [address], [id number], [place] tel:[phone] [facility] No Information 3 Mango Matthews. [address] [place] [address], [id number] , [place]. tel:[phone] [facility] , [address] [place] [address], [facility], [place] tel:[phone] [facility] No Information 3 Mango Matthews. [address] [place] [address], [id number] , [place]. tel:[phone] Referring Provider: PCP No. [facility] , [address] [place] [address], [facility], [place] tel:[phone] [facility] No Information 3 Mango Matthews. [address] [place] [address], [id number] , [place]. tel:[phone] Referring Provider: Cassie Churchill, [address] [place] [address], [id number] . tel:[phone] New Pt Ov Level 4 [facility] , [address] [place] [address], [id number], [place] tel:[phone] [facility] Body mass index (BMI) 28.0-28.9, adultObstructive sleep apnea (adult) (pediatric)Psychophy siologic insomniaFibromyalgia Apr- 3 Mango Matthews. [address] [place] [address], [id number] , [place]. tel:[phone] Referring Provider: Marleny franks MD, [address] [place], [address]. tel:[phone] Family History Family Member Type Diagnosis Age [...] Provider Payers Payer name Insurance type Covered libertarian ID Clive keys(s) [employer] [id number] Social History Type Description Quantity Date Captured [...]
[2025-02-08 15:32] LABS: TSH reflex Free T4 0.12 uIU/mL (0.32-4.0)
[2025-02-08 16:27] LABS: Free T4 (Free Thyroxine) 1.46 ng/dL (0.71-1.85)
== END 2025-02-08 13:36 | disposition home or self-care (01) ==
LOC: HO.LAB 13:35
PROVIDERS: Visit Provider Nurse Practitioner
DX: E11.9 Type 2 diabetes mellitus without complications (principal)
CPT/HCPCS: 36415; 84439; 84443

== ENCOUNTER 2025-02-08 13:40 | Outpatient (AMB) | payer OTHER, SELFPAY ==
[2025-02-08 13:41] VITALS: BP 110/78; PULSE 77; O2SAT 95; BMI 25.7
--- NOTE | 2025-02-08 13:41 | MHC.OFFVIS ---
Vital Signs 02/08/25 13:41 Height 5 ft 4 in Weight 150 lb BMI 25.7 BP 110/78 Blood Pressure Location Rt brachial Position Sitting Pulse 77 Pulse Source Pulse Oximeter Pulse Oximetry (%) 95 Oxygen Delivery Method Room Air Intake Visit Reasons: Shortness of breath Allergies ketorolac Allergy (Unknown, Verified 02/01/25 14:48) anaphylaxis HPI HPI Shortness of breath: Details: 59-year-old lady followed for underlying moderate obstructive sleep apnea on CPAP therapy and primary insomnia previously on Lunesta and gabapentin with suboptimal response, now Ambien with moderate control. COUNTS INCLUDE 234 BEDS AT THE [facility] Medical History Esophagitis Sleep apnea Urinary incontinence Elevated cholesterol Fibromyalgia Hypothyroid Diabetes GERD (gastroesophageal reflux disease) Surgical History H/O colonoscopy History of section Hx of tonsillectomy Family History Maternal Aunt Diverticulosis Paternal Aunt H/O colectomy Social History Alcohol intake: never Patient Tobacco Use Status: Never used Tobacco Review of Systems Const Denies daytime sleepiness, Denies excessive sweating, Denies fatigue, Denies fever(s), Denies lethargy, Denies malaise, Denies night sweats, Denies snoring and Denies weight loss Eyes Denies blurry vision and Denies itchy eyes ENT Denies nasal congestion, Denies post nasal drip, Denies sinus pain, Denies sinus pressure and Denies other ( Thrush) Card Denies chest pain, Denies pedal edema, Denies dyspnea, Denies orthopnea and Denies paroxysmal nocturnal dyspnea Resp Denies cough, Denies hemoptysis, Denies excessive phlegm production, Denies dyspnea, Denies snoring and Denies wheezing GI Denies abdominal pain and Denies heartburn Musc Denies myalgias, Denies arthralgias and Denies joint swelling Skin/Breast Denies rash Neuro Denies memory loss and Denies seizure-like activity Psych Denies abnormal sleep pattern, Denies anxiety and Denies memory loss Endo Denies excessive sweating, Denies fatigue and Denies heat intolerance Johan/Lymph Denies easy bruising Aller/Immun Denies itchy eyes, Denies seasonal rhinorrhea and Denies wheezing Physical Exam Vital Signs: Last Vital Signs Pulse 77 02/08/25 13:41 BP 110/78 02/08/25 13:41 Pulse Ox 95 02/08/25 13:41 Oxygen Delivery Method Room Air 02/08/25 13:41 BMI result Body Mass Index 25.7 Const General: no acute distress and alert Nutritional Appearance: not obese Orientation/consciousness: Other orientation findings ( oriented) HEENT Head: Yes atraumatic Eyes General: appearance normal, both eyes and all related structures Sclerae: sclerae normal EOM: EOMs intact bilaterally Neck Neck: Yes supple Lymphatic: no lymphadenopathy noted Resp Effort & Inspection: normal respiratory effort and no use of accessory muscles Auscultation: clear to auscultation bilaterally Cardio Rate: regular rate Rhythm: regular rhythm Heart sounds: no gallops, no murmurs and no rubs Skin General skin exam: other ( warm) Extrem General: No clubbing, No cyanosis and No edema Assessment & Plan Assessment & Plan (1) PARMJIT (obstructive sleep apnea): Code(s): G47.33 - Obstructive sleep apnea (adult) (pediatric) Category: Medical Plan: Controlled on CPAP therapy. Continue current CPAP therapy. (2) Primary insomnia: Code(s): F51.01 - Primary insomnia Category: Medical Plan: Some improvement on Ambien. Continue current regimen. Coding Level of Care Code Est Pt Level 4 (13088) Diagnoses PARMJIT (obstructive sleep apnea) G47.33 Primary insomnia F51.01
== END 2025-02-08 13:57 | disposition home or self-care (01) ==
LOC: HO.HPS 13:40
PROVIDERS: PCP Nurse Practitioner Family; Visit Provider Internal Medicine Pulmonary Disease
DX: G47.33 Obstructive sleep apnea (adult) (pediatric) (principal); F51.01 Primary insomnia
CPT/HCPCS: 99214

== ENCOUNTER 2025-02-22 09:38 | Outpatient (AMB) | payer OTHER, SELFPAY ==
--- OUTSIDE RECORDS SUMMARY | 2025-02-22 09:50 | XMS_ITS | Encounter Summary ---
Author Organization [employer] Address [address] [place] [address] 7 [place] [address] Care Team Providers Care Director Of Education And Training Name Role Phone Unavailable Primary Care Provider Unavailabl e Encounter Details Date Type Department Care Team (Latest Contact Info) Description 11/15/2018 Abstract [facility] CONVERSIONS Dental, Provider, DDS Social [...] Description 06/03/2025 1:00 PM EDT Office Visit [facility] ADULT DENTAL [address] [place] [address] RicardoBalajiRocio [address] [place] [address] documented as of this encounter Visit Diagnoses Not on filedocumented in this encounter
--- NOTE | 2025-02-22 09:54 | MHC.OFFVIS ---
Vital Signs 02/22/25 10:09 Height 5 ft 4 in Weight 150 lb BMI 25.7 BP 116/70 Blood Pressure Location Rt brachial Position Sitting Pulse 98 Pulse Source Pulse Oximeter Pulse Oximetry (%) 96 Oxygen Delivery Method Room Air Intake Visit Reasons: 3 wks CIC , peresis, GERD Intake Note: ESTABLISHED PATIENT for mgmt of severe CIC + gastroparesis. CC; C.O. intermittent diarrhea and constipation as well as generalized abd pain. Pt comments that she is having a hard time finding balance between loose and hard stools with her Rx. Pt also reports having some possibly new trigger foods (ie cilantro?) Retail Pos Specialist Required: No Accompanied by: Self / Same As Patient Allergies ketorolac Allergy (Unknown, Verified 02/22/25 09:59) anaphylaxis HPI HPI 3 wks CIC , peresis, GERD: Details: Assessment & Plan (1) Chronic idiopathic constipation: Code(s): K59.04 - Chronic idiopathic constipation Category: Medical (2) GERD (gastroesophageal reflux disease): Code(s): K21.9 - Gastro-esophageal reflux disease without esophagitis Category: Medical (3) Nausea and vomiting: Code(s): R11.2 - Nausea with vomiting, unspecified Category: Medical (4) Erosive esophagitis: Code(s): K22.10 - Ulcer of esophagus without bleeding Category: Medical (5) Gastroparesis: Code(s): K31.84 - Gastroparesis Category: Medical Plan She has not been using the motegrity as she was confused about what to take. She is tolerating the metoclopramide, but still not moving her bowels daily. She IS taking miralax and I think we need to layer all of this together with the motegiry before considering any dose adjustment with Reglan. (she is on cymbalta). She frequently needs to take the protonix bid, will rx this way but better bowel motility will likely help this as well. ROV 3 weeks. Medications: New polyethylene glycol 3350 (Miralax) 17 grams PO DAILY 238 grams 6RF Changed From pantoprazole 40 mg PO DAILY 90 tabs 1RF To pantoprazole 40 mg PO BID 180 tabs 1RF Refilled prucalopride (Motegrity) 1 mg PO DAILY 90 tabs 1RF 90 days TODAY'S VISIT She had an episode where she had someone else cooking for her and they use so on frozen ingredients which she can not tolerate. This prompted her GI system to have diarrhea with severe cramping. She waited for 2 past that utilize dicyclomine but then she started having constipation with multiple daily bowel movements with rabbit pellet stools. This is continued up until now. She has not extremely sensitive GI system and there are multitude of food she can not tolerate. I think for now we need to get her bowels moving, since she admits she frequently forgets her noon dose of Reglan I want to try to reinforce that she needs to take it to pace the movement of her GI system, and I would like to add a 4th dose at bedtime along with half a dose of her Gavalax (she takes a full dose of Gavalax in the morning with her coffee) to get her bowels moving. Between these interventions and going back to her regular diet she should be able to reestablish a fairly normal bowel pattern that she had prior to this insult. Return office visit in 6 weeks [facility] Medical History Esophagitis Sleep apnea Urinary incontinence Elevated cholesterol Fibromyalgia Hypothyroid Diabetes GERD (gastroesophageal reflux disease) Surgical History H/O colonoscopy History of section Hx of tonsillectomy Family History Maternal Aunt Diverticulosis Paternal Aunt H/O colectomy Social History Alcohol intake: never Patient Tobacco Use Status: Never used Tobacco Review of Systems Const Denies fatigue, Denies fever(s), Denies night sweats, Denies poor appetite and Denies weight loss Eyes Details: glasses Reports requires corrective lenses ENT Reports Normal hearing present, Denies dental pain, Denies dysphagia, Denies hearing loss, Denies mouth pain, Denies odynophagia, Denies throat swelling, Denies tongue swelling and Reports other (Dentition adequate) Card Reports no additional complaints Resp Reports no additional complaints GI Details: Denies abdominal pain, Reports belching, Denies melena, Reports bloating, Denies hematochezia, Reports constipation, Reports GI cramping, Denies dysphagia, Denies excessive flatus, Denies early satiety, Reports heartburn, Reports diarrhea, Denies nausea, Denies odynophagia, Denies vomiting and Denies hematemesis Skin/Breast Denies pruritus, Denies lesions, Denies rash and Denies jaundice Neuro Reports Normal hearing present and Denies Abnormal speech present Endo Denies fatigue Aller/Immun Denies throat swelling and Denies tongue swelling Physical Exam Vital Signs: Last Vital Signs Pulse 98 02/22/25 10:09 BP 116/70 02/22/25 10:09 Pulse Ox 96 02/22/25 10:09 Oxygen Delivery Method Room Air 02/22/25 10:09 BMI result Body Mass Index 25.7 Const General: cooperative, no acute distress, well developed and well groomed Nutritional Appearance: average body habitus and well nourished Orientation/consciousness: oriented to person, oriented to place and oriented to time Limitations: No language barrier HEENT Head: Yes normocephalic and Yes atraumatic Eyes General: appearance normal, both eyes and all related structures Pupils: Equal, round and reactive pupils present Neck Neck: Yes normal visual inspection and Yes no lymphadenopathy Thyroid: Thyroid normal Resp Effort & Inspection: normal respiratory effort and able to speak in complete sentences Auscultation: clear to auscultation bilaterally Cardio Rate: regular rate Rhythm: regular rhythm Heart sounds: Normal, physiologic split S2 sound present Peripheral pulses: radial pulses present and posterior tibial pulses present GI Inspection: No distended and No Abdominal panniculus present Palpation (GI): Soft to palpation, nontender, no guarding, not rigid and No hepatosplenomegaly present Percussion: Yes normal to percussion Auscultation: normal bowel sounds Rectal Exam - Female: deferred Skin General skin exam: no rashes or lesions noted, turgor normal, skin not dry, no jaundice, No spider nevi and no striae Rashes: no rashes Nails: normal Neuro General: oriented to person, oriented to place and oriented to time Cranial nerves: Yes Equal, round and reactive pupils present and Yes Normal hearing present Speech: No Abnormal speech present Extrem General: Yes normal to inspection, No clubbing, No cyanosis and No edema Psych Appearance: grossly normal and well kempt Mental Status: mental status grossly normal Speech and movement: Normal speech and movement present Affect: normal affect Attitude: cooperative Thought process: Normal thought process present and not confabulating Thought content: Normal thought content present Insight: Fair insight present (Psych) Judgement: Fair judgement present (Psych) Assessment & Plan Assessment & Plan (1) GERD (gastroesophageal reflux disease): Code(s): K21.9 - Gastro-esophageal reflux disease without esophagitis Category: Medical (2) Gastroparesis: Code(s): K31.84 - Gastroparesis Category: Medical (3) Chronic idiopathic constipation: Code(s): K59.04 - Chronic idiopathic constipation Category: Medical Plan She had an episode where she had someone else cooking for her and they use so on frozen ingredients which she can not tolerate. This prompted her GI system to have diarrhea with severe cramping. She waited for 2 past that utilize dicyclomine but then she started having constipation with multiple daily bowel movements with rabbit pellet stools. This is continued up until now. She has not extremely sensitive GI system and there are multitude of food she can not tolerate. I think for now we need to get her bowels moving, since she admits she frequently forgets her noon dose of Reglan I want to try to reinforce that she needs to take it to pace the movement of her GI system, and I would like to add a 4th dose at bedtime along with half a dose of her Gavalax (she takes a full dose of Gavalax in the morning with her coffee) to get her bowels moving. Between these interventions and going back to her regular diet she should be able to reestablish a fairly normal bowel pattern that she had prior to this insult. Return office visit in 6 week Medications: Refilled polyethylene glycol 3350 (Miralax) 17 grams PO DAILY 238 grams 6RF metoclopramide HCl (Reglan) 5 mg PO QID 120 tabs 6RF K31.84 - Gastroparesis, K59.04 - Chronic idiopathic constipation Patient Instructions: 1.??? Get back to your regular diet. 2.??? Take ? dose Gavalax at bedtime until? your bowels get moving 3.??? Take the reglan 4 times a day, try to remember your noon dose and take a dose at bedtime 4.??? Back off of the bedtime Gavalax and reglan if you get diarrhea. Coding Level of Care Code Est Pt Level 3 (08974) Diagnoses GERD (gastroesophageal reflux disease) K21.9 Gastroparesis K31.84 Chronic idiopathic constipation K59.04
[2025-02-22 10:09] VITALS: BP 116/70; PULSE 98; O2SAT 96; BMI 25.7
== END 2025-02-22 10:50 | disposition home or self-care (01) ==
LOC: HO.HGI 09:38
PROVIDERS: Visit Provider Nurse Practitioner
DX: K21.9 Gastro-esophageal reflux disease without esophagitis (principal); K31.84 Gastroparesis; K59.04 Chronic idiopathic constipation
CPT/HCPCS: 99213

== ENCOUNTER → 2025-02-22 09:38 | Outpatient (BNVA) | payer OTHER, SELFPAY | PROVIDERS: Visit Provider Nurse Practitioner ==

== ENCOUNTER 2025-03-20 15:09 | Emergency (ER) | payer OTHER, SELFPAY ==
--- OUTSIDE RECORDS SUMMARY | 2024-01-05 06:46 | XMS_ITS | Continuity of Care Document ---
Author Organization [facility] Address [address] [place] [address] Phone Care Team Providers Care Field Nurse Case Manager Name Role Phone Ezekiel Cobian MD, ABSKerline, [...] Copied on Encounter [facility] , [address] [place] [address], [id number], [place] tel:[phone] [facility] No Information 4 Mango Matthews. [address] [place] [address], [id number] , [place]. tel:[phone] [facility] , [address] [place] [address], [address], [place] tel:[phone] [facility] No Information 3 Mango Matthews. [address] [place] [address], [id number] , [place]. tel:[phone] [facility] , [address] [place] [address], [facility], [place] tel:[phone] [facility] No Information 3 Mango Matthews. [address] [place] [address], [id number] , [place]. tel:[phone] Referring Provider: PCP No. [facility] , [address] [place] [address], [facility], [place] tel:[phone] [facility] No Information 3 Mango Matthews. [address] [place] [address], [id number] , [place]. tel:[phone] Referring Provider: Cassie Churchill, [address] [place] [address], [address] . tel:[phone] New Pt Ov Level 4 [facility] , [address] [place] [address], [address], [place] tel:[phone] [facility] Body mass index (BMI) 28.0-28.9, adultObstructive sleep apnea (adult) (pediatric)Psychophy siologic insomniaFibromyalgia Apr- 3 Mango Matthews. [address] [place] [address], [id number] , [place]. tel:[phone] Referring Provider: Marleny franks MD, [address] [place], [address]. tel:[phone] Family History Family Member Type Diagnosis Age [...] type Covered republican ID Clive keys(s) Aetna [id number] Social History Type Description Quantity Date Captured [...]
[2025-03-20 15:23] VITALS: BP 126/78; PULSE 90; RESP 16; TEMP 36.6; O2SAT 99; BMI 26.6
--- NOTE | 2025-03-20 15:25 | ECG_ITS ---
Test Reason : cp Blood Pressure : */* mmHG Vent. Rate : 72 BPM Atrial Rate : 72 BPM P-R Int : 152 ms QRS Dur : 90 ms QT Int : 366 ms P-R-T Axes : 37 7 22 degrees QTcB Int : 400 ms Normal sinus rhythm Minimal voltage criteria for LVH, may be normal variant ( R in aVL ) Borderline ECG When compared with ECG of 06-Jan-2025 19:20, No significant change was found Referred By: Tiara Nur Electronically Signed By: MARTY SOTO
--- NOTE | 2025-03-20 15:27 | PC.NURSE ---
Alerted by registration staff patient is lying on the ground. Patient found lying on back, sunglassess on, not answering to name. Patient arousable to sternal rub, hitting this staff member's hand away. Patient assisted to wheelchair by this RN and security Blayne. Wheeled into triage for assessment. pipe line walkerREYNA Handley and REEMA Montoya made aware.
[2025-03-20 15:37] LABS: MANUAL DIFF FLAG NO
[2025-03-20 15:39] LABS: Hematocrit 41.9 % (37.0-47.0); Hemoglobin 13.8 g/dl (12.0-16.0); Imm Gran Abs Auto 0.02 X10*3/uL (0.00-0.03); Imm Gran Pct Auto 0.3 % (0.0-0.4); Lymphocytes Absolute Auto 1.7 X10*3/uL (1.2-4.9); Mean Corpuscular HGB Conc 32.9 g/dl (31.0-35.0); Mean Corpuscular Hemoglobin 28.4 pg (27.0-33.0); Mean Corpuscular Volume 86.2 fL (80.0-98.0); NRBC Abs Auto 0.000 X10*3/uL (0.0-0.012); NRBC Pct Auto 0.0 /100WBC (0.0-0.2); Platelet Count 334 X10*3/uL (160-400); Red Blood Count 4.86 X10*6/uL (4.20-5.50); White Blood Count 7.4 X10*3/uL (4.8-10.8)
[2025-03-20 15:55] LABS: Alanine Aminotransferase 19 U/L (0-31); Albumin Level 4.9 g/dL (3.5-5.0); Alkaline Phosphatase 109 U/L (39-117); Anion Gap 13 (12-20); Aspartate Amino Transferase 21 U/L (5-31); Blood Urea Nitrogen 11 mg/dL (9-16); Calcium 10.1 mg/dL (8.4-10.2); Carbon Dioxide 29 mmol/L (22-29); Chloride 104 mmol/L (96-108); Creatinine Clr Calc Pharmacy 68.5; Estimated Glomerular Filt Rate > 60; Lipase 19 U/L (8-78); Magnesium 2.3 mg/dL (1.6-2.6); Potassium 3.8 mmol/L (3.3-5.1); Sodium 142 mmol/L (135-145); Total Protein 8.1 g/dL (6.5-8.0)
[2025-03-20 16:06] LABS: Troponin-I High Sensitivity < 2.7 ng/L (<3.5-17.0)
--- NOTE | 2025-03-20 16:10 | PC.NURSE ---
pt rang for assistance- pt requesting to be seen by provider. advised providers are with other patients. pt oob to BR to provide urine- no apparent distress noted
--- NOTE | 2025-03-20 16:18 | PC.NURSE ---
nurse called to room- this nurse collected UA, pt did you tell the doctor I'm here? advised a provider will be down as soon as they are able. = call forbes within reach. care ongoing
[2025-03-20 16:22] LABS: Appearance Urine Clear; Glucose Urine UA Negative (Negative); PH 8.0 (5.0-9.0); Specific Gravity - Urine 1.020 (1.005-1.025); UMIC TRIGGER UACC YES
[2025-03-20 16:37] VITALS: BP 131/83; PULSE 77; RESP 15; O2SAT 96
--- NOTE | 2025-03-20 16:41 | PC.NURSE ---
PCT notified this nurse that pt wants to see a doctor . Pt offers no new complaints since t/w was last with pt. no provider assigned to pt at this time
[2025-03-20 16:43] LABS: UACC Culture Trigger YES
--- NOTE | 2025-03-20 17:09 | PC.NURSE ---
PCT informed t/w that pt requesting provider. stated to PCT that no one has seen her. T/W has been in room several times d/t same request.
--- NOTE | 2025-03-20 17:40 | PC.NURSE ---
Patient again used call forbes requesting to see a provider, requesting pain & nausea medications. Ambulated with steady gait moments ago to bathroom and back without issue. No new complaints. Awaiting ED provider evaluation.
--- NOTE | 2025-03-20 17:52 | ED_ITS ---
HPI - Abdominal Pain General Chief Complaint: Abdominal Pain Stated Complaint: Nausea, Vomiting, Abd Pain Time Seen by Provider: 03/20/25 17:51 Source: patient Mode of arrival: ambulatory Limitations: no limitations History of Present Illness ED Provider: Dr. Jose De Jesus Polk HPI narrative: 59-year-old female with a history of gastroparesis, diabetes mellitus, hyperlipidemia, erosive gastritis, GERD, diverticulitis, hypothyroidism, fibromyalgia, obstructive sleep apnea, IBS who presents emergency department for evaluation of sharp, intermittent, 8/10, lower abdominal pain x2 days. The pain came on gradually. She states she has had similar pain in the past secondary to her IBS. Ashley's constipation and episodes of diarrhea. She states over the last 2 days she has had 5-6 soft, loose, diarrheal stools per day. She has had no dark stools or bloody stools. She denied fever but has had chills. She had nausea with 2 episodes of vomiting. She denied dysuria but has urinary frequency. Patient states the pain was getting worse therefore she came to the emergency department for evaluation. Patient has not been on antibiotics recently in his not traveled outside of the country. Related Data Home Medications ?Medication ?Instructions ?Recorded ?Confirmed duloxetine 60 mg capsule,delayed 60 mg PO DAILY 06/25/24 release ezetimibe 10 mg tablet 10 mg PO DAILY 01/24/2406/06 metformin 500 mg tablet,extended 500 mg PO DAILY 01/2306/25/24 release 24 hr gabapentin 300 mg capsule 300 mg PO DAILY PRN 09/13/24 naproxen 500 mg tablet 500 mg PO DAILY PRN 09/13/24 mirabegron 50 mg tablet,extended 50 mg PO DAILY release 24 hr levothyroxine 88 mcg capsule 88 mcg PO DAILY 02/22/25 pregabalin 75 mg capsule 75 mg PO BID 02/22/25 Previous Rx's ?Medication ?Instructions ?Recorded hydrocortisone 2.5 % topical cream 1 appl [place] BID hemor rhoids #30 grams 01/10/25 with perineal applicator (Proctosol HC) pantoprazole 40 mg tablet,delayed 40 mg PO BID #180 ta bs 02/01/25 release prucalopride 1 mg tablet 1 mg PO DAILY 90 days #90 ta bs 02/01/25 (Motegrity) metoclopramide HCl 5 mg tablet 5 mg PO QID #120 tabs 0 02/22/25 (Reglan) polyethylene glycol 3350 17 17 g PO DAILY #238 grams 0 02/22/25 gram/dose oral powder (Miralax) zolpidem 10 mg tablet (Ambien) See Rx Instructions PO BEDTIME PRN 02/25/25 sleep #30 tabs diazepam 5 mg tablet 5 mg PO TID PRN Abdominal spasm/pain #10 tabs dicyclomine 20 mg tablet 20 mg PO TID #30 tabs Allergies Allergy/AdvReac Type Severity Reaction Status Date / Time ketorolac Allergy Unknown anaphylaxis Verified 03/20/25 15:24 Review of Systems Review of Systems Yes all other systems are reviewed and are negative [facility] Past Medical History [facility] Narrative: Social history: She denies tobacco, alcohol and drug use. She is in her is here in the emergency department with her Medical History Esophagitis Sleep apnea Urinary incontinence Elevated cholesterol Fibromyalgia Hypothyroid Diabetes GERD (gastroesophageal reflux disease) Surgical History H/O colonoscopy History of section Hx of tonsillectomy Family History Family History Maternal Aunt Diverticulosis Paternal Aunt H/O colectomy Social History Social History Alcohol intake: never Patient Tobacco Use Status: Never used Tobacco Smoked in Last 30 Days: No Advance Directives: No Advance Directives Information Provided: No Do you have a plan to hurt others: No Plan Patient : No Physical Exam ED Vital Signs: Vital Signs - 24 hr 03/20/25 15:23 03/20/25 16:37 03/20/25 18:21 Temperature 97.8 F 98 F Pulse Rate 90 77 70 Respiratory Rate 16 15 16 Blood Pressure 126/78 131/83 132/76 Pulse Oximetry 99 96 98 Oxygen Delivery Method Room Air Room Air Room Air BMI result Body Mass Index 26.6 Vital signs were normal. Exam: General: Awake, alert in no distress Head: Normocephalic, atraumatic EENT: PERRL, Lids normal, sclera normal, conjunctiva normal, nose normal , ears normal, throat without erythema or exudates Neck: Supple, no adenopathy Lung: breath sounds symmetric, no wheezing, rales or rhonchi Chest: symmetric movement, nontender Heart: regular rate and rhythm, normal S1, S2 no murmurs or rubs Abdomen: soft, mild to moderate lower abdominal tenderness, no rebound, no voluntary or involuntary guarding, nondistended, normal bowel sounds Back: no vertebral tenderness, no CVAT Extremities: no deformities, moves all extremities symmetrically Neuro: Awake, alert, oriented, normal speech, moves all extremities symmetrically Psych: Pleasant, cooperative Medical Decision Making Medical Decision Making MDM Narrative: 59-year-old female with a history of gastroparesis, diabetes mellitus, hyperlipidemia, erosive gastritis, GERD, diverticulitis, hypothyroidism, fibromyalgia, obstructive sleep apnea, IBS who presents emergency department for evaluation of sharp, intermittent, 8/10, lower abdominal pain x2 days. The pain came on gradually. She states she has had similar pain in the past secondary to her IBS. Ashley's constipation and episodes of diarrhea. She states over the last 2 days she has had 5-6 soft, loose, diarrheal stools per day. She has had no dark stools or bloody stools. She denied fever but has had chills. She had nausea with 2 episodes of vomiting. She denied dysuria but has urinary frequency. Patient states the pain was getting worse therefore she came to the emergency department for evaluation. Patient has not been on antibiotics recently in his not traveled outside of the country. Vital signs were normal. Physical examination revealed mild to moderate lower abdominal tenderness with no rebound, no voluntary or involuntary guarding. Differential diagnosis: ?Includes but is not limited to diverticulitis, colitis, pancreatitis, irritable bowel syndrome, viral syndrome, anemia, electrolyte abnormalities Course: 18:37 My independent interpretation patient's laboratory evaluation is as follows: CBC was normal. Patient's presentation and physical findings are consistent with her IBS. At this time I do not think that she needs imaging studies. I ordered the following treatment: IV insertion, normal saline IV x1 L, diazepam 5 mg IV and Bentyl 10 mg orally. 20:37 Patient is feeling significantly better. Patient's symptoms are most likely secondary to her IBS. Patient was prescribed Bentyl and diazepam. She was advised to stay on a KIKA diet for 24 hours. She was given printed and verbal instructions discharged home. Admission/Observation Consideration of admission/observation: Escalation of care including admission/observation considered (Yes) Lab Data [facility] Lab Attestation statement: I reviewed the patient's lab results. 03/20/25 15:29 03/20/25 15:29 Labs: Lab Results 03/20/25 03/20/25 Range/Units 15:29 16:14 WBC 7.4 (4.8-10.8) X10*3/uL RBC 4.86 (4.20-5.50) X10*6/uL Hgb 13.8 (12.0-16.0) g/dl Hct 41.9 (37.0-47.0) % MCV 86.2 (80.0-98.0) fL MCH 28.4 (27.0-33.0) pg MCHC 32.9 (31.0-35.0) g/dl RDW 14.7 (11.0-16.0) % Plt Count 334 (160-400) X10*3/uL MPV 9.2 L (9.4-12.3) fL Immature Gran % (Auto) 0.3 (0.0-0.4) % Neut % (Auto) 70.2 (45-73) % Lymph % (Auto) 22.9 (20-40) % Heard % (Auto) 5.8 (2-11) % Eos % (Auto) 0.3 (0-4) % Baso % (Auto) 0.5 (0-2) % Lymph # (Auto) 1.7 (1.2-4.9) X10*3/uL Heard # (Auto) 0.4 (0.1-1.2) X10*3/uL Eos # (Auto) 0.0 (0.0-0.4) X10*3/uL Baso # (Auto) 0.0 (0.0-0.2) X10*3/uL Abs Immat Gran (auto) 0.02 (0.00-0.03) X10*3/uL Absolute Neuts (auto) 5.2 (2.0-8.3) x10*3/uL Absolute Nucleated RBC 0.000 (0.0-0.012) X10*3/uL Nucleated RBC % (auto) 0.0 (0.0-0.2) /100WBC Sodium 142 (135-145) mmol/L Potassium 3.8 (3.3-5.1) mmol/L Chloride 104 (96-108) mmol/L Carbon Dioxide 29 (22-29) mmol/L Anion Gap 13 (12-20) BUN 11 (9-16) mg/dL Creatinine 0.84 (0.5-1.4) mg/dL Estim Creat Clear Calc 68.5 Estimated GFR > 60 Random Glucose 106 (60-115) mg/dL Calcium 10.1 D (8.4-10.2) mg/dL Magnesium 2.3 (1.6-2.6) mg/dL Total Bilirubin 0.4 (0.0-1.0) mg/dL AST 21 (5-31) U/L ALT 19 (0-31) U/L Alkaline Phosphatase 109 (39-117) U/L Troponin I High Sens < 2.7 (<3.5-17.0) ng/L Total Protein 8.1 H (6.5-8.0) g/dL Albumin 4.9 (3.5-5.0) g/dL Lipase 19 (8-78) U/L Urine Color Yellow Urine Appearance Clear Urine pH 8.0 (5.0-9.0) Ur Specific [place] 1.020 (1.005-1.025) Urine Protein Negative (Neg-Trace) mg/dL Urine Glucose (UA) Negative (Negative) mg/dL Urine Ketones Negative (Negative) mg/dL Urine Blood Negative (Negative) Urine Nitrite Negative (Negative) Ur Leukocyte Esterase Small (1+) H (Negative) Urine RBC 0-2 (0-2) /HPF Urine WBC 0-5 (0-5) /HPF Ur Squamous Epith Cells 0-2 (0-2) /HPF Urine Bacteria None Seen (None Seen) Hyaline Casts 0-2 (0-2) /LPF Independent Historian Clinical information obtained from an independent historian. History obtained from or confirmed by: Spouse External Record Review External record reviewed: Office record (GI notes) Chronic Conditions Patient?s care impacted by: Diabetes and Other (IBS) Medications Administered Discontinued Medications Generic Name Dose Route Start Last Admin Trade Name Juan Albertoq PRN Reason Stop Dose Admin Diazepam 5 mg 03/20/25 18:31 03/20/25 18:46 Diazepam 10 Mg/2 Ml Cartridge IVPUSH 03/20/25 18:32 5 mg STAT STA Administration Dicyclomine HCl 10 mg 03/20/25 18:31 03/20/25 18:46 Dicyclomine Hcl 10 Mg Capsule PO 03/20/25 18:32 10 mg ONCE ONE Administration Sodium Chloride 1,000 mls @ 999 mls/hr 03/20/25 18:31 03/20/25 19:48 Ns IV 03/20/25 19:31 Infused .Q1H1M STA Infusion Discharge Plan Discharge Clinical Impression: Abdominal pain Qualifiers: Abdominal location: lower abdomen, unspecified Qualified Code(s): R10.30 - Lower abdominal pain, unspecified Diarrhea Qualifiers: Diarrhea type: unspecified type Qualified Code(s): R19.7 - Diarrhea, unspecified IBS (irritable colon syndrome) Qualifiers: Irritable bowel syndrome type: with diarrhea Qualified Code(s): K58.0 - Irritable bowel syndrome with diarrhea Patient Disposition: Home, Self-Care Instructions: Irritable Bowel Syndrome (DC) Additional Instructions: Your blood work was unremarkable. Your symptoms are consistent with a flare-up of your IBS. Take Bentyl 20 mg 3 times a day as needed for abdominal pain. Take Valium (diazepam) 5 mg 3 times a day as needed for abdominal pain/spasm For the next 24 hours, stay on a KIKA diet (bananas, rice, applesauce, tea and toast). Continue taking medications as prescribed by your providers. Follow-up with your doctor in 2 days. Please return to the emergency department if your symptoms get worse or if you develop any symptoms that are concerning to you. Prescriptions: New dicyclomine 20 mg tablet 20 mg PO TID Qty: 30 0RF diazepam 5 mg tablet 5 mg PO TID PRN (Reason: Abdominal spasm/pain ) Qty: 10 0RF No Action zolpidem [Ambien] 10 mg tablet See Rx Instructions PO BEDTIME PRN (Reason: sleep) Qty: 30 3RF Rx Instructions: One tab a day as needed before sleep hydrocortisone [Proctosol HC] 2.5 % cream with perineal applicator 1 appl AK BID Qty: 30 6RF Rx Instructions: BE SURE TO INCLUDE RECTAL APPICATOR!! pregabalin 75 mg capsule 75 mg PO BID levothyroxine 88 mcg capsule 88 mcg PO DAILY metoclopramide HCl [Reglan] 5 mg tablet 5 mg PO QID Qty: 120 6RF polyethylene glycol 3350 [Miralax] 17 gram/dose powder 17 g PO DAILY Qty: 238 6RF metformin 500 mg tablet extended release 24 hr 500 mg PO DAILY ezetimibe 10 mg tablet 10 mg PO DAILY duloxetine 60 mg capsule,delayed release(DR/EC) 60 mg PO DAILY naproxen 500 mg tablet 500 mg PO DAILY PRN gabapentin 300 mg capsule 300 mg PO DAILY PRN mirabegron 50 mg tablet extended release 24 hr 50 mg PO DAILY prucalopride [Motegrity] 1 mg tablet 1 mg PO DAILY 90 Days Qty: 90 1RF pantoprazole 40 mg tablet,delayed release (DR/EC) 40 mg PO BID Qty: 180 1RF Print Language: Estonian
--- OUTSIDE RECORDS SUMMARY | 2025-03-20 17:52 | XMS_ITS | Data Portability ---
Author Organization ANGELIC Zapien s, [address] Address [address] [place] [address] Assessment No assessment recorded. Plan of Treatment Reminders Order Date Submit Date Provider Last Modified By Organization Details Last Modified Time Details Appointments None recorded. Lab rapid flu (A+B) 2023 024 [email or web address] [address], [address] [place], [address], 4 17:04:41 SARS CoV 2 (COVID-19) Ag, QL, IA, upper respiratory specimen 2023 024 [email or web address] [address] [address], [address] [place], [address], 4 17:04:42 urinalysis, dipstick 2023 024 [email or web address] [address], [address] [place], [address], 4 17:04:44 culture, urine 2023 024 [facility], [address] [place] [address], [place], [address], 4 06:06:26 Referral None recorded. Procedures None recorded. Surgeries None recorded. Imaging None recorded. Medication Orders ondansetron 4 mg disintegrat ing tablet 2023 024 [email or web address] Not available 17:04:33 ondansetron 4 mg disintegrat ing tablet 2023 024 [email or web address] [id number], [address] [place] [address], [place], [address], 17:04:33 Patient TargetsNo targets recorded. Patient Instructions Encounter Date Encounter Id Patient Instructions Last Modified By Organization Details Last Modified Time 12/10/2023 [id number] nausea and vomiting: care instructions Not available [...] culture, routine FINAL REPORT Not Available [facility] ([facility]) [address] [facility], [place], [address], 12/12/2023 06:06:26 12/10/1912/12/2023 URINE CULTU REYENI result 1 COMMEN T Cultu re shows less than 10,00 0 colon y formi ng units of bacte mariola per rivera liter of urine . This colon y count is not gener ally consi dered to be clini weston signi sven t. Not Available [facility] ([facility]) [address] [facility], [place], [address], 12/12/2023 06:06:26 12/10/19 24 12/10/2023 urina lysis , dipst ick Unknown Analyte Normal = light yellow Not Available [facility] [address] [place], [address], 12/10/2023 16:50:53 12/10/19 24 12/10/2023 urina lysis , dipst ick Unknown Analyte Yellow Not Available [facility] [address] [place], [address], 12/10/2023 16:50:53 12/10/19 24 12/10/2023 urina lysis , dipst ick Unknown Analyte Normal = clear Not Available [facility] [address] [place], [address], 12/10/2023 16:50:53 12/10/19 24 12/10/2023 urina lysis , dipst ick Unknown Analyte Clear Not Available [facility] [address] [place], [address], 12/10/2023 16:50:53 12/10/19 24 12/10/2023 urina lysis , dipst ick Unknown Analyte Normal = negati ve Not Available [address] [place], [address], 12/10/2023 16:50:53 12/10/19 24 12/10/2023 urina lysis , dipst ick Unknown Analyte Negati ve Not Available [address] [place], [address], 12/10/2023 16:50:53 12/10/19 24 12/10/2023 urina lysis , dipst ick Unknown Analyte Normal = Negati ve Not Available [address] [place], [address], 12/10/2023 16:50:53 12/10/19 24 12/10/2023 urina lysis , dipst ick Unknown Analyte Small Not Available [address] [place] [address] [address] [place], [address], 12/10/2023 16:50:53 12/10/19 24 12/10/2023 urina lysis , dipst ick Unknown Analyte Normal = Negati ve Not Available [facility] [place], [address], 12/10/2023 16:50:53 12/10/19 24 12/10/2023 urina lysis , dipst ick Unknown Analyte Negati ve Not Available [address] [place], [address], 12/10/2023 16:50:53 12/10/19 24 12/10/2023 urina lysis , dipst ick Unknown Analyte Normal = 1.010, 1.015, 1.020 Not Available [address] [place], [address], 12/10/2023 16:50:53 12/10/19 24 12/10/2023 urina lysis , dipst ick Unknown Analyte 1.030 Not Available [address] [place] [address] [address] [place], [address], 12/10/2023 16:50:53 12/10/19 24 12/10/2023 urina lysis , dipst ick Unknown Analyte Normal = Negati ve Not Available [address] [place], [address], 12/10/2023 16:50:53 12/10/19 24 12/10/2023 urina lysis , dipst ick Unknown Analyte Negati ve Not Available [address] [place], [address], 12/10/2023 16:50:53 12/10/19 24 12/10/2023 urina lysis , dipst ick Unknown Analyte Normal = 6.5, 7.0, 7.5, 8.0 Not Available [address] [place], [address], 12/10/2023 16:50:53 12/10/19 24 12/10/2023 urina lysis , dipst ick Unknown Analyte 5.5 Not Available [address] [facility] [address] [place], [address], 12/10/2023 16:50:53 12/10/19 24 12/10/2023 urina lysis , dipst ick Unknown Analyte Normal = Negati ve Not Available [address] [place], [address], 12/10/2023 16:50:53 12/10/19 24 12/10/2023 urina lysis , dipst ick Unknown Analyte Negati ve Not Available [address] [place], [address], 12/10/2023 16:50:53 12/10/19 24 12/10/2023 urina lysis , dipst ick Unknown Analyte Normal = 0.2, 1.0 Not Available [address] [place], [address], 12/10/2023 16:50:53 12/10/19 24 12/10/2023 urina lysis , dipst ick Unknown Analyte Normal = Negati ve Not Available [address] [place], [address], 12/10/2023 16:50:53 12/10/19 24 12/10/2023 urina lysis , dipst ick Unknown Analyte Negati ve Not Available [address] [place], [address], 12/10/2023 16:50:53 12/10/19 24 12/10/2023 urina lysis , dipst ick Unknown Analyte Normal = Negati ve Not Available [address] [place], [address], 12/10/2023 16:50:53 12/10/19 24 12/10/2023 urina lysis , dipst ick Unknown Analyte Negati ve Not Available [address] [place], [address], 12/10/2023 16:50:53 12/10/19 24 12/10/2023 urina lysis , dipst ick Unknown Analyte 0.2 E.U./d L Not Available [address] [place], [address], 12/10/2023 16:50:53 12/10/19 24 12/10/2023 SARS CoV 2 (COVI D-19) Ag, QL, IA, upper respi rator y speci men Unknown Analyte negati ve Not Available [address] [place], [address], 12/10/2023 16:50:43 12/10/19 24 12/10/2023 SARS CoV 2 (COVI D-19) Ag, QL, IA, upper respi rator y speci men Unknown Analyte yes Not Available [facility] [address] [place], [address], 12/10/2023 16:50:43 12/10/19 24 12/10/2023 rapid flu (A+B) Unknown Analyte negati ve Not Available [address] [place], [address], 12/10/2023 16:50:34 12/10/19 24 12/10/2023 rapid flu (A+B) Unknown Analyte negati ve Not Available [address] [place], [address], 12/10/2023 16:50:34 12/10/19 24 12/10/2023 rapid flu (A+B) Unknown Analyte Not Available [address] [facility] [address] [place], [address], 12/10/2023 16:50:34 Result Notes None recorded. Problems Name Problem SNOMED Code Status Onset Date Resolution Date Notes Provider Name and Address Organization Details Recorded Time Fibromyalgia 705050732 Active ANGELIC Barragan [facility] 4 16:49:49 Disorder of thyroid gland 75836182 Active ANGELIC Barragan [facility] 4 16:50:00 Problem Notes None recorded. Medical Equipment None Reported. Allergies Allergen ID Allergen Name Allergen Category Reaction Reaction Severity Criticality Documentation Date Start Date Code Code System Note Provider Name and Address Organization Details Recorded Time 046862 Toradol medicatio n Not available Not available Not available 12/10/2023 63061 RxNorm ANGELIC Barragan [facility] 4 16:49:03 Medications Name Sig Start [...] Heart rate Respiratory rate Body temperature Systolic And Diastolic Provider Name and Address Organization Details Last Updated DateTime 4 162.56 cm 34213.7 4 g 99 % 99 % 91 /min 18 /min 96.2 [degF] 116/77 mm[Hg] Yesenia aNidu PA - [facility] 16:47:53 Date Recorded Body height Body mass index (BMI) Body weight Oxygen saturation Oxygen saturation in Arterial blood by Pulse oximetry Heart rate Respiratory rate Body temperature Systolic And Diastolic Provider Name and Address Organization Details Last Updated DateTime 4 162.56 cm 27.5 kg/m2 39334.7 8 g 96 % 96 % 84 /min 18 /min 97.4 [degF] 101/68 mm[Hg] Bia Rosenberg PA - [facility] 4 13:14:07 Social History Question Answer Notes LastModified by Organizat ion Details LastModified Time Tobacco Smoking Status Never Smoker Yesenia jensen PA - [facility] 12/10/2023 16:50:21 Have You Had A Flu Shot This Season? Yes Information not available 12/17/2023 What Was The Date Of Your Most Recent Tobacco Screening? 12/10/2023 [email or web address] Information not available 12/10/2023 What Is Your Relationship Status? Single Information not available 12/17/2023 Are You Currently In School? No Information not available 12/17/2023 Sex: Unknown Functional Status Question Answer Note LastModified by Organization D etails LastModified Time Do you or have you ever used any other forms of tobacco or nicotine? No [email or web address] Information not available 12/10/2023 What is your level of alcohol consumption? None [email or web address] Information not available 12/10/2023 Are you currently employed? Yes Information not available 12/17/2023 Mental Status None recorded. Family History Relationship Description Onset Age of this Age Resolved Age Notes LastModified by Organization Details LastModified Time Father No current problems or disability [email or web address] Not available 02/2024 16:50:10 Mother No current problems or disability [email or web address] Not available 02/2024 16:50:10 Medical History No medical history recorded. Gynecological HistoryNo gynecological history recorded. Obstetrics History GPAL:G 0 P 0 0 0 0 Past Encounters Encounter ID Performer Location Encounter Start Date Encounter Closed Date Diagnosis/Indication Diagnosis SNOMED-CT Code Diagnosis ICD10 Code Diagnosis Note [id number] [facility] [address] [place] [address] 2019 15:06:30 2019 17:03:48 [id number] [address] [facility] [address] [place] [address] 05/17/2021 10:22:51 05/17/2021 13:44:56 [id number] [address] [facility] [address] [place] [address] 11/27/2018 13:40:56 11/27/2018 14:23:10 [id number] [address] [facility] [address] [place] [address] 02/18/2020 10:11:47 02/18/2020 11:06:53 [id number] Royal Whitlock, [address] [place] [address] 12/10/2023 16:29:01 12/10/2023 17:29:38 Nausea and vomiting 99912628 R11.2 VSS and she does not have [...] agreement with the plan as outlined above. [id number] [facility] [address] [facility] [address] [facility] [address] 12/17/2023 13:01:46 12/17/2023 13:29:02 Viral gastroenteritis [id number] A08.4 Based on you exam and presentati [...] Blood in Urine. Thank you for using [employer] , please feel free to contact us [...] 12/17/2023 1 [employer] [facility] (EPO) [id number] Bianca Alarcon [id number] 694 Bianca robb 12/10/2023 1 [facility] [id number] Bianca Alarcon [id number] 00 Bianca Alarcon-Venecia robb Notes Date Note Type Note Provider Name and Address Organization Details Recorded Time 12/10/2023 text/html Nausea / Vomitin g UCReported bypatient.Notes:58 yo female c/o nausea, abdominal pain x 1 dconstipation x 1 dvomiting x 8 times since this morningstarted after eating a tuna sandwich no blood in vomit last vomited [address] last PO yesterday last BM yesterday. no [...] Royal Whitlock DO [address] [place], [address], PA - [facility] 12/10/2023 17:13:10 12/17/2023 text/html 58 y/o female he re with continued abdominal pain with gastro virus starting last week. Starting to feel a bit better, but wants to make sure she's on the right past ANGELIC Barr [address] [place], [address], PA - [facility] 12/17/2023 13:27:00 OBGyn Episode No OBEpisode recorded.
--- OUTSIDE RECORDS SUMMARY | 2025-03-20 17:52 | XMS_ITS | Encounter Summary ---
Author Organization [employer] Address [address] [place] [address] [address] [place] [address] Care Team Providers Care Baller Tender Name Role Phone Unavailable Primary Care Provider Unavailabl e Encounter Details Date Type Department Care Team (Latest Contact Info) Description 11/15/2018 Abstract [facility] Dental, Provider, DDS Social History [...] Description 06/03/2025 1:00 PM EDT Office Visit [facility] [address] [place] [address] RicardoBalajiRocio [address] [place] [address] documented as of this encounter Visit Diagnoses Not on filedocumented in this encounter
[2025-03-20 18:21] VITALS: BP 132/76; PULSE 70; RESP 16; TEMP 36.6; O2SAT 98
[2025-03-20] MEDS: diazePAM 10 MG/2 ML CARTRIDGE 5 MG IVPUSH (18:46)
--- NOTE | 2025-03-20 20:31 | PC.NURSE ---
pt requests DC at this time, no DC summary written at this time- pt advised discharge summary is not ready at this time
[2025-03-20 20:47] VITALS: BP 132/76; PULSE 70; RESP 16; TEMP 36.6; O2SAT 98
== END 2025-03-20 20:47 | disposition home or self-care (01) ==
PROVIDERS: Physician Assistant Medical; Emergency Provider Emergency Medicine Emergency Medical Services
DX: R11.2 Nausea with vomiting, unspecified (principal); R10.2 Pelvic and perineal pain; R10.30 Lower abdominal pain, unspecified; K58.0 Irritable bowel syndrome with diarrhea; R19.7 Diarrhea, unspecified; R07.89 Other chest pain; Z79.899 Other long term (current) drug therapy
CPT/HCPCS: 36415; 80053; 81001; 83690; 83735; 84484; 85025; 87086; 93005; 96361; 96374; 99284; 99285; J3360

== ENCOUNTER → 2025-03-20 15:25 | Outpatient (BNV) | payer OTHER, SELFPAY | PROVIDERS: Emergency Provider Emergency Medicine Emergency Medical Services; Visit Provider Internal Medicine | DX: R07.9 Chest pain, unspecified (principal) | CPT/HCPCS: 93010 ==

== ENCOUNTER 2025-04-19 14:52 | Outpatient (AMB) | payer OTHER, SELFPAY ==
--- OUTSIDE RECORDS SUMMARY | 2024-01-05 06:46 | XMS_ITS | Continuity of Care Document ---
Author Organization [facility] Address [address] [place] [address] Phone Care Team Providers Care Orthodontic Technician Assistant Name Role Phone Ezekiel Cobian MD, ABSKerline, [...] Copied on Encounter [facility] , [address] [place] [address], [address], [place] tel:[phone] [facility] No Information 4 Mango Matthews. [address] [place] [address], [id number] , [place]. tel:[phone] [facility] , [address] [place] [address], [address], [place] tel:[phone] [facility] No Information 3 Mango Matthews. [address] [place] [address], [id number] , [place]. tel:[phone] [facility] , [address] [place] [address], [facility], [place] tel:[phone] [facility] No Information 3 Mango Matthews. [address] [place] [address], [id number] , [place]. tel:[phone] Referring Provider: PCP No. [facility] , [address] [place] [address], [facility], [place] tel:[phone] [facility] [place] No Information 3 Mango Matthews. [address] [place] [address], [id number] , [place]. tel:[phone] Referring Provider: Cassie Churchill, [address] [place] [address], [address] . tel:[phone] New Pt Ov Level 4 [facility] , [address] [place] [address], [address], [place] tel:[phone] [facility] Body mass index (BMI) 28.0-28.9, adultObstructive sleep apnea (adult) (pediatric)Psychophy siologic insomniaFibromyalgia Apr- 3 Mango Matthews. [address] [place] [address], [id number] , [place]. tel:[phone] Referring Provider: Marleny franks MD, [address] [place], [address]. tel:[phone] Family History Family Member Type Diagnosis Age [...] Covered constitution party ID Clive keys(s) Aetna [id number] Social History Type Description Quantity Date Captured [...]
--- OUTSIDE RECORDS SUMMARY | 2025-04-19 14:54 | XMS_ITS | Clinical Summary ---
Author Organization [facility] Address [address] [facility] [address] [place] [phone] Phone Care Team Providers Care Construction Controller Name Role Phone Artur Sweeney MD Primary Care Provider Unavail able Allergies Active Allergy Reactions Criticality Noted Date Comments Ketorolac Anaphylaxis High 05/27/2009 Respiratory, saw black Medications DULoxetine (CYMBALTA) 60 MG capsule Take 1 capsule by mouth 2 (two) times a day. 8 Active naproxen (NAPROSYN) 500 MG tablet Take 1 tablet by mouth daily. 8 Active levothyroxine (SYNTHROID, LEVOTHROID) 137 MCG tablet Take 137 mcg by mouth every other day. Active omeprazole (PRILOSEC) 20 mg TbEC Take 20 mg by mouth daily before breakfast. Active gabapentin (NEURONTIN) 300 MG capsule Take 300 mg by mouth nightly at bedtime. Active polyethylene glycol (GLYCOLAX) 17 gram/dose powder Take 17 g by mouth daily. Active traZODone (DESYREL) 100 MG tablet Take 100 mg by mouth nightly at bedtime. Active simvastatin (ZOCOR) 20 MG tablet Take 20 mg by mouth nightly at bedtime. Active levothyroxine (SYNTHROID, LEVOTHROID) 125 MCG tablet Take 125 mcg by mouth every other day. Active magnesium oxide 250 mg (150 mg elemental) Tab Take 250 mg by mouth daily. Active COCONUT OIL ORAL Take by mouth. Active calcium carb-mag ox-zinc sulf 333-133-5 mg TabIndications:uns ure strength Take 1 tablet by mouth daily. Indications: unsure strength Active ergocalciferol (DRISDOL) 50,000 unit capsuleIndications :Vitamin D insufficiency Take 1 capsule (50,000 Units total) by mouth once a week. 13 capsule 1 9 Active Active Problems Problem Noted Date Diagnosed Date ALEXANDER positive 07/20/2019 Assessment & Plan (07/21/2019 11:04 AM EST): I reviewed with Bianca that I am not finding signs and symptoms suggestive of systemic lupus erythematosus based on her history or review of available data. Positive ALEXANDER in itself does not constitute a diagnosis particularly that it is stable over 8 years from 2010 to 2019. It does however put her at an increased risk for developing disease associated with positive ALEXANDER such as systemic lupus erythematosus, scleroderma, Sjogren's syndrome polymyositis, dermatomyositis etc. Periodic monitoring indicated. She is educated about the need of daily sun protection, avoidance of sick contacts. Additional benefits come from well-balanced nutritionally diet, proper hydration, regular exercising and following age-appropriate screenings and preventive strategies. Vitamin D insufficiency 07/20/2019 Assessment & Plan (07/21/2019 11:04 AM EST): Serum level requested to adjust supplementation accordingly. Fibromyalgia 07/20/2019 Assessment & Plan (07/21/2019 11:08 AM EST): We discussed the diagnosis of fibromyalgia, its natural history, and treatment. Specifically, we discussed that treatment requires many interventions and recognition that we are often unable to get patients completely pain free. Management of fibromyalgia requires patient engagement to address any underlying depression, anxiety, or sleep disorder. Further, patients are encouraged to engage in regular physical activity. Some studies have suggested that Andrew Chi is effective. Other physical activity may including water-based aerobics, walking, biking, Pilates, gentle yoga etc. In terms of pharmacotherapy, there are many options, including tricyclic antidepressants, duloxetine, gabapentin or pregabalin, and cyclobenzaprine as well as other similar medications to those listed. In this case, the patient might continue Cymbalta as prescribed since she is managing well on it. She would benefit from reading book written by Dr Hamzah Navarro [facility] addressing management strategies for patients with fibromyalgia utilizing mindfulness approach. Hypercholesterolemia 07/20/2019 Assessment & Plan (07/21/2019 11:10 AM EST): Low-cholesterol diet reviewed and strongly encouraged based on Mediterranean diet. Follow closely with PCP and if necessary consider adjusting pharmacologic therapy Gastroesophageal reflux disease without esophagi tis 07/20/2019 Assessment & Plan (07/21/2019 11:09 AM EST): Avoid late, large, spicy meals. Keep headboard elevated at 45 angle for nighttime. On statin therapy 07/20/2019 Assessment & Plan (07/21/2019 11:10 AM EST): Monitor for muscle tenderness, swelling and weakness Acquired hypothyroidism 07/20/2019 Assessment & Plan (07/21/2019 11:05 AM EST): Continue thyroid replacement therapy and close follow-up with treating physician. Other insomnia 07/20/2019 Assessment & Plan (07/21/2019 11:09 AM EST): Sleep hygiene. Relaxation tapes prior to bed rest and every time she wakes up during the night x 8-12 weeks. Low-dose melatonin 3-5 mg nightly may be of help. Consider formal sleep study if not better or worse Social History Tobacco Use Types Packs/Day Years Used Date Smoking Tobacco: Never Assessed Smokeless Tobacco: Never Alcohol Use Standard Drinks/Week Comments Not Currently 0 (1 standard drink = 0.6 oz pur e alcohol) Education Answer Date Recorded Are you interested in more education? Not on rafi e 12/31/2022 Are you concerned about learning? Not on file 12/31/2022 No 12/31/2022 No 12/31/2022 Digital Access Answer Date Recorded No 01/29/2023 No 01/29/2023 No 01/29/2023 Reliable internet access at home? Not on file 01/29/2023 Device with a working camera? Not on file Comments Unknown Sex and Gender Information Value Date Recorded Sex Assigned at Not on file Legal Sex Female 12:43 PM EDT Gender Identity Not on file Sexual Orientation Not on file Last Filed Vital Signs Vital Sign Reading Time Taken Comments Blood Pressure 110/70 07/20/2019 11:07 AM EST Pulse - - Temperature - - Respiratory Rate - - Oxygen Saturation - - Inhaled Oxygen Concentration - - Weight 74.4 kg (164 lb) 07/20/2019 11:07 AM EST Height 162.6 cm (5' 4 ) 07/20/2019 11:07 AM EST Body Mass Index 28.15 07/20/2019 11:07 AM EST Plan of Treatment Health Maintenance Due Date Last Done Comments LIPID PANEL 1964 TSH LEVEL 1964 DEPRESSION SCREENING 1976 SMOKING Hx and SMOKELESS TOBACCO SCREENING 1977 HEPATITIS C SCREENING 1982 HIV ONE-TIME SCREENING (18-6 5 YEARS) 1982 PAP SMEAR 1985 COLOGUARD 2009 COLONOSCOPY 2009 COLORECTAL CANCER SCREENING 2009 FIT TEST 2009 FOBT 2009 SIGMOIDOSCOPY 2009 VIRTUAL COLONOSCOPY 2009 PNEUMOCOCCAL VACCINES (50+ years) (1 of 1 - PCV) 2014 ZOSTER VACCINES (1 of 2) 2014 MAMMOGRAM 06/11/2021 06/11/2019 Adult Td,Tdap Booster 04/05/2023 04/05/2013 , 10/07/2007 COVID-19 VACCINE (3 - 2023-2 5 season) 2024 10/09/2020, 09/11/2020 RSV VACCINE (1 - 1-dose 75+ series) 2039 HEPATITIS A VACCINES Aged Out No long er eligible based on patient's age to complete this topic HIB VACCINES Aged Out No longer eligi ble based on patient's age to complete this topic MENINGOCOCCAL VACCINES (ACWY) Aged Out No longer eligible based on patient's age to complete this topic MENINGOCOCCAL VACCINES (B) Aged Out N o longer eligible based on patient's age to complete this topic Medical Devices Not on file [facility] NON NSPG PCP [place] [employer] CONNE[employer] WELLSENSE NON NSPG PCP SILVER [employer]ARITY CONNECTORCARE WELLSENSE NON NSPG PCP S[place]VER [employer]ITY CONNECTORCARE WELLSENSE NON NSPG PCP S[place]VER [employer]ARITY CONNECTORCARE WELLSENSE NON NSPG PCP [place] [employer]ITY CONNECTORCARE WELLSENSE NON NSPG PCP S[place]VER [employer]ARITY CONNECTORCARE WELLSENSE NON NSPG PCP S[place] [employer] CONNECTORCARE WELLSENSE NON NSPG PCP [place] CLARITY CONNECTORCARE Care Teams Construction Controller Relationship Specialty Start Date End Date Artur Sweeney MD PCP - General Endocrinology 05/15/19 Additional Source Comments The information contained in this document represents components of the legal health record. It is not the complete legal health record.[facility]
--- NOTE | 2025-04-19 14:55 | MHC.OFFVIS ---
Vital Signs 04/19/25 15:25 Height 5 ft 4 in Weight 145 lb 8.081 oz BMI 25.0 BP 123/72 Blood Pressure Location Rt brachial Position Sitting Pulse 76 Intake Visit Reasons: 6 wks f/u IBS, paresis Intake Note: Bianca presents in 6 weeks follow up of IBS and paresis. CC: Patient reports that she is not eating well and not having an appetite. She [place] [facility] [place] d/t abdominal pain. She states that sometimes she has nausea, constipation, or frequent soft BMs. 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 Accompanied by: Self / Same As Patient Allergies ketorolac Allergy (Unknown, Verified 04/19/25 15:34) anaphylaxis HPI HPI 6 wks f/u IBS, paresis: Details: Assessment & Plan (1) GERD (gastroesophageal reflux disease): Code(s): K21.9 - Gastro-esophageal reflux disease without esophagitis Category: Medical (2) Gastroparesis: Code(s): K31.84 - Gastroparesis Category: Medical (3) Chronic idiopathic constipation: Code(s): K59.04 - Chronic idiopathic constipation Category: Medical Plan She had an episode where she had someone else cooking for her and they use so on frozen ingredients which she can not tolerate. This prompted her GI system to have diarrhea with severe cramping. She waited for 2 past that utilize dicyclomine but then she started having constipation with multiple daily bowel movements with rabbit pellet stools. This is continued up until now. She has not extremely sensitive GI system and there are multitude of food she can not tolerate. I think for now we need to get her bowels moving, since she admits she frequently forgets her noon dose of Reglan I want to try to reinforce that she needs to take it to pace the movement of her GI system, and I would like to add a 4th dose at bedtime along with half a dose of her Gavalax (she takes a full dose of Gavalax in the morning with her coffee) to get her bowels moving. Between these interventions and going back to her regular diet she should be able to reestablish a fairly normal bowel pattern that she had prior to this insult. Return office visit in 6 week Medications: Refilled polyethylene glycol 3350 (Miralax) 17 grams PO DAILY 238 grams 6RF metoclopramide HCl (Reglan) 5 mg PO QID 120 tabs 6RF K31.84 - Gastroparesis, K59.04 - Chronic idiopathic constipation Patient Instructions: 1.??? Get back to your regular diet. 2.??? Take ? dose Gavalax at bedtime until? your bowels get moving 3.??? Take the reglan 4 times a day, try to remember your noon dose and take a dose at bedtime 4.??? Back off of the bedtime Gavalax and reglan if you get diarrhea. CT ABD AND PELVIS 01/2025 FINDINGS: Small hiatal hernia. Normal liver. Normal spleen. Left renal cyst. Nonobstructing left renal calculus. No visible ureteral calculi. Unremarkable right kidney. No hydronephrosis. Normal adrenal glands. Normal pancreas. No visible cholelithiasis. No biliary dilation. No evidence of bowel obstruction. Mild thickening of the nguyen of the sigmoid colon. No pneumatosis. Normal appendix. Unremarkable bladder. Unremarkable uterus. Trace ascites in the pelvis. No pneumoperitoneum. No lymphadenopathy. No acute fracture. No abdominal aortic aneurysm. IMPRESSION: Sigmoid colon wall thickening, which could be due to colitis. Trace ascites in the pelvis. Nonemergent/incidental findings above. TODAY'S VISIT [facility] Medical History Esophagitis Sleep apnea Urinary incontinence Elevated cholesterol Fibromyalgia Hypothyroid Diabetes GERD (gastroesophageal reflux disease) Surgical History H/O colonoscopy History of section Hx of tonsillectomy Family History Maternal Aunt Diverticulosis Paternal Aunt H/O colectomy Social History Alcohol intake: never Patient Tobacco Use Status: Never used Tobacco Review of Systems Const Denies fatigue, Denies fever(s), Denies night sweats, Denies poor appetite and Reports weight loss Eyes Details: glasses Reports requires corrective lenses ENT Reports Normal hearing present, Denies dental pain, Denies dysphagia, Denies hearing loss, Denies mouth pain, Denies odynophagia, Denies throat swelling, Denies tongue swelling and Reports other (Dentition adequate) Card Reports no additional complaints Resp Reports no additional complaints GI Details: Reports abdominal pain, Denies melena, Denies bloating, Denies hematochezia, Denies constipation, Reports GI cramping, Denies dysphagia, Denies excessive flatus, Denies early satiety, Reports heartburn, Reports diarrhea, Reports loose stools, Reports nausea, Denies odynophagia, Reports vomiting and Denies hematemesis Skin/Breast Denies pruritus, Denies lesions, Denies rash and Denies jaundice Neuro Reports Normal hearing present and Denies Abnormal speech present Endo Denies fatigue Aller/Immun Denies throat swelling and Denies tongue swelling Physical Exam Vital Signs: Last Vital Signs Pulse 76 04/19/25 15:25 BP 123/72 04/19/25 15:25 BMI result Body Mass Index 25.0 Const General: cooperative, no acute distress, well developed and well groomed Nutritional Appearance: average body habitus and well nourished Orientation/consciousness: oriented to person, oriented to place and oriented to time Limitations: No language barrier HEENT Head: Yes normocephalic and Yes atraumatic Eyes General: appearance normal, both eyes and all related structures Pupils: Equal, round and reactive pupils present Neck Neck: Yes normal visual inspection and Yes no lymphadenopathy Thyroid: Thyroid normal Resp Effort & Inspection: normal respiratory effort and able to speak in complete sentences Auscultation: clear to auscultation bilaterally Cardio Rate: regular rate Rhythm: regular rhythm Heart sounds: Normal, physiologic split S2 sound present Peripheral pulses: radial pulses present and posterior tibial pulses present GI Inspection: No distended and No Abdominal panniculus present Palpation (GI): Soft to palpation, Tenderness to palpation present (GI) in the LLQ and in the RLQ, no guarding, not rigid and No hepatosplenomegaly present Percussion: Yes normal to percussion Auscultation: normal bowel sounds Rectal Exam - Female: deferred Skin General skin exam: no rashes or lesions noted, turgor normal, skin not dry, no jaundice, No spider nevi and no striae Rashes: no rashes Nails: normal Neuro General: oriented to person, oriented to place and oriented to time Cranial nerves: Yes Equal, round and reactive pupils present and Yes Normal hearing present Speech: No Abnormal speech present Extrem General: Yes normal to inspection, No clubbing, No cyanosis and No edema Psych Appearance: grossly normal and well kempt Mental Status: mental status grossly normal Speech and movement: Normal speech and movement present Affect: normal affect Attitude: cooperative Thought process: Normal thought process present and not confabulating Thought content: Normal thought content present Insight: Good insight present (Psych) Judgement: Good judgement present (Psych) Results Reviewed Results Reviewed: CT ABD AND PELVIS 01/2025 FINDINGS: Small hiatal hernia. Normal liver. Normal spleen. Left renal cyst. Nonobstructing left renal calculus. No visible ureteral calculi. Unremarkable right kidney. No hydronephrosis. Normal adrenal glands. Normal pancreas. No visible cholelithiasis. No biliary dilation. No evidence of bowel obstruction. Mild thickening of the nguyen of the sigmoid colon. No pneumatosis. Normal appendix. Unremarkable bladder. Unremarkable uterus. Trace ascites in the pelvis. No pneumoperitoneum. No lymphadenopathy. No acute fracture. No abdominal aortic aneurysm. IMPRESSION: Sigmoid colon wall thickening, which could be due to colitis. Trace ascites in the pelvis. Nonemergent/incidental findings above. Laboratory Tests 02/08/25 03/20/25 14:03 15:29 WBC 7.4 Random Glucose 106 Total Bilirubin 0.4 AST 21 ALT 19 Alkaline Phosphatase 109 TSH 0.12 L Free T4 1.46 Assessment & Plan Assessment & Plan (1) GERD (gastroesophageal reflux disease): Code(s): K21.9 - Gastro-esophageal reflux disease without esophagitis Category: Medical (2) Gastroparesis: Code(s): K31.84 - Gastroparesis Category: Medical (3) Erosive esophagitis: Code(s): K22.10 - Ulcer of esophagus without bleeding Category: Medical (4) Chronic idiopathic constipation: Code(s): K59.04 - Chronic idiopathic constipation Category: Medical (5) Hypothyroid: Code(s): E03.9 - Hypothyroidism, unspecified Category: Medical (6) Diverticulitis: Code(s): K57.92 - Diverticulitis of intestine, part unspecified, without perforation or abscess without bleeding Category: Medical Plan Bianca presents for follow-up today as we usually treat her severe constipation, GERD with erosive esophagitis, and gastroparesis. She tells me that she had a sudden onset, March 18, of abdominal pain with associated nausea and vomiting and diarrhea. She presented to the ER for an evaluation, and they did a CAT scan but simply attributed her symptoms (the fight the severe change from her usually intractable constipation to diarrhea) to simple IBS and prescribed her dicyclomine. This has not helped her symptoms and she continues to have nausea, loose stools and a poor appetite with a resulting 10 lb weight loss. Reviewing with the labs and the CT there was some potential for early stage diverticulitis revealed on the CAT scan. I also noted that she seemed to have an unusually low TSH with a normal T4, so I question if hyperthyroidism could be contributing to her symptoms. Patient was informed and verbally consented to the use of an ambient scribe for clinic note documentation during this visit. Patient Instructions - Increase metoclopramide 5 mg tablets to 2 tablets, 4 times daily. - Stop taking Motegrity until eating more regularly. - Do not use MiraLax unless constipated or advised. - Begin the prescribed Augmentin for empiric treatment of diverticulitis. - repeat TSH screening. I am also adding a hemoglobin A1c as I notice some episodes of hyperglycemia and her chart. - Follow a light diet with gentle, easily digestible foods. - Return in roughly three weeks for follow-up. - feel free to contact us a report to the ER if you have any worsening symptoms. Orders: Orders Hemoglobin A1c 04/23/25 E03.9 - Hypothyroidism, unspecified TSH reflex Free T4 04/23/25 E03.9 - Hypothyroidism, unspecified Medications: New amoxicillin-pot clavulanate 875-125 mg 1 tab PO BID 28 tabs 0RF 14 days K57.92 - Diverticulitis of intestine, part unspecified, without perforation or abscess without bleeding Changed From metoclopramide HCl (Reglan) 5 mg PO QID 120 tabs 6RF K31.84 - Gastroparesis, K59.04 - Chronic idiopathic constipation To metoclopramide HCl (Reglan) 10 mg (2 x 5 mg) PO QID 240 tabs 6RF K31.84 - Gastroparesis, K59.04 - Chronic idiopathic constipation On Hold polyethylene glycol 3350 (Miralax) Hold Comment: Doctor's Order 17 grams PO DAILY 238 grams 6RF prucalopride (Motegrity) Hold Comment: Doctor's Order 1 mg PO DAILY 90 days 90 tabs 1RF Coding Level of Care Code Est Pt Level 4 (34230) Diagnoses GERD (gastroesophageal reflux disease) K21.9 Gastroparesis K31.84 Erosive esophagitis K22.10 Chronic idiopathic constipation K59.04 Hypothyroid E03.9 Diverticulitis K57.92 Time Spent (min) 38
--- OUTSIDE RECORDS SUMMARY | 2025-04-19 14:55 | XMS_ITS | Encounter Summary ---
Author Organization [employer] Address [address] [place] [address] [address] [place] [address] Care Team Providers Care Tile Power Shear Operator Name Role Phone Unavailable Primary Care Provider Unavailabl e Encounter Details Date Type Department Care Team (Latest Contact Info) Description 11/15/2018 Abstract [facility] Dental, Provider, DDS Social History Tobacco [...] 1:00 PM EDT Office Visit [facility] [address] [place] [address] RicardoBalajiRocio [address] [place] [address] documented as of this encounter Visit Diagnoses Not on filedocumented in this encounter
--- OUTSIDE RECORDS SUMMARY | 2025-04-19 14:55 | XMS_ITS ---
Author Name [facility] Organization Unknown Care Team Organization Name Specialty Phone Email Start Date End Da te [facility] Radha De Luna Primary Care 07/13/2022 4
[2025-04-19 15:25] VITALS: BP 123/72; PULSE 76; BMI 25.0
== END 2025-04-19 16:15 | disposition home or self-care (01) ==
LOC: HO.HGI 14:53
PROVIDERS: Visit Provider Nurse Practitioner
DX: K21.9 Gastro-esophageal reflux disease without esophagitis (principal); K31.84 Gastroparesis; K22.10 Ulcer of esophagus without bleeding; K59.04 Chronic idiopathic constipation; E03.9 Hypothyroidism, unspecified; K57.92 Diverticulitis of intestine, part unspecified, without perforation or abscess without bleeding
CPT/HCPCS: 99214

== ENCOUNTER 2025-04-23 15:01 | Outpatient (REF) | payer OTHER, SELFPAY ==
[2025-04-23 16:04] LABS: Hemoglobin A1C 140.3309 umol/L; Total Hemoglobin (HGBA1C) 3281.6148 umol/L
[2025-04-23 17:18] LABS: Free T4 (Free Thyroxine) 1.04 ng/dL (0.71-1.85)
== END 2025-04-23 15:02 | disposition home or self-care (01) ==
LOC: HO.LAB 15:01
PROVIDERS: Absent Provider Nurse Practitioner; PCP Nurse Practitioner; Visit Provider Nurse Practitioner
DX: E03.9 Hypothyroidism, unspecified (principal)
CPT/HCPCS: 36415; 83036; 84439; 84443

== ENCOUNTER 2025-07-05 13:36 | Outpatient (REF) | payer OTHER, SELFPAY ==
--- NOTE | ~2025-07-05 | XR_ITS ---
EXAMINATION: XR ABDOMEN COMPLETE CLINICAL INDICATION: K59.04 - Chronic idiopathic constipation COMPARISON: Correlated to CT dated January 06, 2025. TECHNIQUE: AP view in supine and upright position of the abdomen. FINDINGS: No free of any the diaphragm. Gas in a nondilated large intestine. Abundant stool. No air-fluid levels. There are shadow projects below the rib cage. Multiple, 5 mm sclerotic lesions in the right femoral head and neck. Multilevel spondylosis. XR/XR abdomen min 2V IMPRESSION: No intestinal obstruction pattern. No gross pneumoperitoneum. Hepatomegaly, mild. Electronically signed by: Javier Prather MD 07/05/2025 02:57 PM EDT
== END 2025-07-05 13:37 | disposition home or self-care (01) ==
LOC: HO.XRAY 13:36
PROVIDERS: PCP Nurse Practitioner; Visit Provider Nurse Practitioner
DX: K21.9 Gastro-esophageal reflux disease without esophagitis (principal); K57.92 Diverticulitis of intestine, part unspecified, without perforation or abscess without bleeding; K59.04 Chronic idiopathic constipation; K31.84 Gastroparesis; K22.10 Ulcer of esophagus without bleeding; E03.9 Hypothyroidism, unspecified; Z79.899 Other long term (current) drug therapy; R11.2 Nausea with vomiting, unspecified
CPT/HCPCS: 36415; 74019; 84443; 86376

== ENCOUNTER 2025-07-05 13:36 | Outpatient (AMB) | payer OTHER, SELFPAY ==
--- OUTSIDE RECORDS SUMMARY | 2024-01-05 06:46 | XMS_ITS | Continuity of Care Document ---
Author Organization [facility] Address [address] [place] [address] Phone Care Team Providers Care Sand Mill Operator Core Sand Name Role Phone Ezekiel Cobian MD, ABSKerline, [...] Copied on Encounter [facility] , [address] [place] [address], [address], [place] tel:[phone] [facility] No Information 4 Mango Matthews. [address] [place] [address], [id number] , [place]. tel:[phone] [facility] , [address] [place] [address], [address], [place] tel:[phone] [facility] No Information 3 Mango Matthews. [address] [place] [address], [id number] , [place]. tel:[phone] [facility] , [address] [place] [address], [facility], [place] tel:[phone] [facility] [place] No Information 3 Mango Matthews. [address] [place] [address], [id number] , [place]. tel:[phone] Referring Provider: PCP No. [facility] , [address] [place] [address], [facility], [place] tel:[phone] [facility] [place] No Information 3 Mango Matthews. [address] [place] [address], [id number] , [place]. tel:[phone] Referring Provider: Cassie Churchill, [address] [place] [address], [address] . tel:[phone] New Pt Ov Level 4 [facility] , [address] [place] [address], [address], [place] tel:[phone] [facility] Body mass index (BMI) 28.0-28.9, adultObstructive sleep apnea (adult) (pediatric)Psychophy siologic insomniaFibromyalgia Apr- 3 Mango Matthews. [address] [place] [address], [id number] , [place]. tel:[phone] Referring Provider: Marleny franks MD, [address] [place], [address]. tel:[phone] Family History Family Member Type Diagnosis Age [...] Provider Payers Payer name Insurance type Covered republican ID Clive keys(s) Aetna [id number] Social History Type Description Quantity Date Captured [...]
--- NOTE | 2025-07-05 13:46 | A.OFFVIS_ITS ---
Vital Signs 07/05/25 13:47 Height 5 ft 4 in Weight 137 lb BMI 23.5 BP 121/64 Blood Pressure Location Lt brachial Position Sitting Pulse 85 Intake Visit Reasons: wt loss, dyspspeia Allergies ketorolac Allergy (Unknown, Verified 07/19/25 13:41) anaphylaxis HPI HPI wt loss, dyspspeia: Details: Assessment & Plan (1) GERD (gastroesophageal reflux disease): Code(s): K21.9 - Gastro-esophageal reflux disease without esophagitis Category: Medical (2) Gastroparesis: Code(s): K31.84 - Gastroparesis Category: Medical (3) Erosive esophagitis: Code(s): K22.10 - Ulcer of esophagus without bleeding Category: Medical (4) Chronic idiopathic constipation: Code(s): K59.04 - Chronic idiopathic constipation Category: Medical (5) Hypothyroid: Code(s): E03.9 - Hypothyroidism, unspecified Category: Medical (6) Diverticulitis: Code(s): K57.92 - Diverticulitis of intestine, part unspecified, without perforation or abscess without bleeding Category: Medical Plan Bianca presents for follow-up today as we usually treat her severe constipation, GERD with erosive esophagitis, and gastroparesis. She tells me that she had a sudden onset, March 18, of abdominal pain with associated nausea and vomiting and diarrhea. She presented to the ER for an evaluation, and they did a CAT scan but simply attributed her symptoms (DESPITE the severe change from her usually intractable constipation to diarrhea) to simple IBS and prescribed her dicyclomine. This has not helped her symptoms and she continues to have nausea, loose stools and a poor appetite with a resulting 10 lb weight loss. Reviewing with the labs and the CT there was some potential for early stage diverticulitis revealed on the CAT scan. I also noted that she seemed to have an unusually low TSH with a normal T4, so I question if hyperthyroidism could be contributing to her symptoms. Patient was informed and verbally consented to the use of an ambient scribe for clinic note documentation during this visit. Patient Instructions - Increase metoclopramide 5 mg tablets to 2 tablets, 4 times daily. - Stop taking Motegrity until eating more regularly. - Do not use MiraLax unless constipated or advised. - Begin the prescribed Augmentin for empiric treatment of diverticulitis. - repeat TSH screening. I am also adding a hemoglobin A1c as I notice some episodes of hyperglycemia and her chart. - Follow a light diet with gentle, easily digestible foods. - Return in roughly three weeks for follow-up. - feel free to contact us a report to the ER if you have any worsening symptoms. Orders: Orders Hemoglobin A1c 04/23/25 E03.9 - Hypothyroidism, unspecified TSH reflex Free T4 04/23/25 E03.9 - Hypothyroidism, unspecified Medications: New amoxicillin-pot clavulanate 875-125 mg 1 tab PO BID 28 tabs 0RF 14 days K57.92 - Diverticulitis of intestine, part unspecified, without perforation or abscess without bleeding Changed From metoclopramide HCl (Reglan) 5 mg PO QID 120 tabs 6RF K31.84 - Gastroparesis, K59.04 - Chronic idiopathic constipation To metoclopramide HCl (Reglan) 10 mg (2 x 5 mg) PO QID 240 tabs 6RF K31.84 - Gastroparesis, K59.04 - Chronic idiopathic constipation On Hold polyethylene glycol 3350 (Miralax) Hold Comment: Doctor's Order 17 grams PO DAILY 238 grams 6RF prucalopride (Motegrity) Hold Comment: Doctor's Order 1 mg PO DAILY 90 days 90 tabs 1RF LABS: Laboratory Tests 02/08/25 04/23/25 14:03 15:12 Hemoglobin A1c % 6.1 H TSH 0.12 L 21.47 H Free T4 1.46 1.04 TODAY'S VISIT Endocrine at [facility] [place] Cherelle Velazquez MD [facility] Medical History (Updated 07/05/25 @ 13:49 by VERNA Parker) Hypothyroid Esophagitis Sleep apnea Urinary incontinence Elevated cholesterol Fibromyalgia Hypothyroid Diabetes GERD (gastroesophageal reflux disease) Surgical History H/O colonoscopy History of section Hx of tonsillectomy Family History Maternal Aunt Diverticulosis Paternal Aunt H/O colectomy Social History Alcohol intake: never Patient Tobacco Use Status: Never used Tobacco Review of Systems Const Denies fatigue, Denies fever(s), Denies night sweats, Reports poor appetite and Denies weight loss ENT Reports Normal hearing present, Denies dental pain, Denies dysphagia, Denies hearing loss, Denies mouth pain, Denies odynophagia, Denies throat swelling, Denies tongue swelling and Reports other (Dentition adequate) Card Reports no additional complaints Resp Reports no additional complaints GI Details: Reports abdominal pain, Denies melena, Denies bloating, Denies hematochezia, Reports constipation, Denies GI cramping, Denies dysphagia, Denies excessive flatus, Denies early satiety, Reports heartburn, Denies diarrhea, Reports nausea, Denies odynophagia, Denies vomiting and Denies hematemesis Skin/Breast Denies pruritus, Denies lesions, Denies rash and Denies jaundice Neuro Reports Normal hearing present and Denies Abnormal speech present Endo Denies fatigue Aller/Immun Denies throat swelling and Denies tongue swelling Physical Exam Vital Signs: Last Vital Signs Pulse 85 07/05/25 13:47 BP 121/64 07/05/25 13:47 BMI result Body Mass Index 23.5 Const General: cooperative, no acute distress, well developed and well groomed Nutritional Appearance: average body habitus and well nourished Orientation/consciousness: oriented to person, oriented to place and oriented to time Limitations: No language barrier HEENT Head: Yes normocephalic and Yes atraumatic Eyes General: appearance normal, both eyes and all related structures Pupils: Equal, round and reactive pupils present Neck Neck: Yes normal visual inspection and Yes no lymphadenopathy Thyroid: Thyroid normal Resp Effort & Inspection: normal respiratory effort and able to speak in complete sentences Auscultation: clear to auscultation bilaterally Cardio Rate: regular rate Rhythm: regular rhythm Heart sounds: Normal, physiologic split S2 sound present Peripheral pulses: radial pulses present and posterior tibial pulses present GI Inspection: No distended and No Abdominal panniculus present Palpation (GI): Soft to palpation, nontender, no guarding, not rigid and No hepatosplenomegaly present Percussion: Yes normal to percussion Auscultation: normal bowel sounds Rectal Exam - Female: deferred Skin General skin exam: no rashes or lesions noted, turgor normal, skin not dry, no jaundice, No spider nevi and no striae Rashes: no rashes Nails: normal Neuro General: oriented to person, oriented to place and oriented to time Cranial nerves: Yes Equal, round and reactive pupils present and Yes Normal hearing present Speech: No Abnormal speech present Extrem General: Yes normal to inspection, No clubbing, No cyanosis and No edema Psych Appearance: grossly normal and well kempt Mental Status: mental status grossly normal Speech and movement: Normal speech and movement present Affect: normal affect Attitude: cooperative Thought process: Normal thought process present and not confabulating Thought content: Normal thought content present Insight: Limited insight present (Psych) Judgement: Limited judgement present (Psych) Results Reviewed Results Reviewed: Laboratory Tests 02/08/25 04/23/25 14:03 15:12 Hemoglobin A1c % 6.1 H TSH 0.12 L 21.47 H Free T4 1.46 1.04 Assessment & Plan Assessment & Plan (1) Nausea and vomiting: Code(s): R11.2 - Nausea with vomiting, unspecified Category: Medical (2) Diverticulitis: Code(s): K57.92 - Diverticulitis of intestine, part unspecified, without perforation or abscess without bleeding Category: Medical (3) Gastroparesis: Code(s): K31.84 - Gastroparesis Category: Medical (4) Erosive esophagitis: Code(s): K22.10 - Ulcer of esophagus without bleeding Category: Medical (5) GERD (gastroesophageal reflux disease): Code(s): K21.9 - Gastro-esophageal reflux disease without esophagitis Category: Medical (6) Hypothyroid: Code(s): E03.9 - Hypothyroidism, unspecified Category: Medical (7) Chronic idiopathic constipation: Code(s): K59.04 - Chronic idiopathic constipation Category: Medical Plan - Take Metoclopramide 10 mg as directed, four times a day. - Take MiraLax twice a day, once in the morning and once at night. - Proceed to the lab and x-ray department for the ordered abdominal x-ray. 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 Endocrine at [facility] [place] Cherelle Velazquez MD. - Follow-up in two weeks for review and management plan update. - Ensure good hydration and maintain dietary adjustments. - Return sooner if acute symptoms worsen such as severe abdominal pain or persistent diarrhea. Orders: Orders TSH reflex Free T4 07/05/25 E03.9 - Hypothyroidism, unspecified Thyroid Peroxidase Antibodies 07/05/25 E03.9 - Hypothyroidism, unspecified Medications: New metoclopramide HCl (Reglan) 10 mg PO QID 120 tabs 6RF Changed From polyethylene glycol 3350 17 grams PO DAILY 238 grams 6RF To polyethylene glycol 3350 (Miralax) 17 grams PO BID 476 grams 6RF Refilled prucalopride (Motegrity) 1 mg PO DAILY 90 tabs 1RF 90 days pantoprazole 40 mg PO BID 180 tabs 1RF Discontinued metoclopramide HCl Discontinued Reason: Doctor's Order 10 mg (2 x 5 mg) PO QID 240 tabs 6RF K31.84 - Gastroparesis, K59.04 - Chronic idiopathic constipation Resumed polyethylene glycol 3350 17 grams PO DAILY 238 grams 6RF polyethylene glycol 3350 (Miralax) 17 grams PO BID 476 grams 6RF prucalopride (Motegrity) 1 mg PO DAILY 90 tabs 1RF 90 days prucalopride 1 mg PO DAILY 90 days 90 tabs 1RF Coding Level of Care Code Est Pt Level 3 (25702) Diagnoses Nausea and vomiting R11.2 Diverticulitis K57.92 Gastroparesis K31.84 Erosive esophagitis K22.10 GERD (gastroesophageal reflux disease) K21.9 Hypothyroid E03.9 Chronic idiopathic constipation K59.04
[2025-07-05 13:47] VITALS: BP 121/64; PULSE 85; BMI 23.5
--- NOTE | 2025-07-05 13:47 | A.OFFVIS_ITS ---
Vital Signs 07/05/25 13:47 Height 5 ft 4 in Weight 137 lb BMI 23.5 BP 121/64 Blood Pressure Location Lt brachial Position Sitting Pulse 85 Intake Visit Reasons: wt loss, dyspspeia Intake Note: Bianca presents to in office follow up of wt loss and dyspepsia. CC: She c/o lower abd pain, diarrhea almost every week. She states that she takes Bentyl and Immodium for diarrhea and now is constipated. She reports an episode of vomiting. 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 Required: No Accompanied by: Self / Same As Patient Allergies ketorolac Allergy (Unknown, Verified 07/05/25 13:50) anaphylaxis [facility] Medical History Esophagitis Sleep apnea Urinary incontinence Elevated cholesterol Fibromyalgia Hypothyroid Diabetes GERD (gastroesophageal reflux disease) Surgical History H/O colonoscopy History of section Hx of tonsillectomy Family History Maternal Aunt Diverticulosis Paternal Aunt H/O colectomy Social History Alcohol intake: never Patient Tobacco Use Status: Never used Tobacco Assessment & Plan Assessment & Plan Orders: Orders TSH reflex Free T4 Today E03.9 - Hypothyroidism, unspecified Thyroid Peroxidase Antibodies Today E03.9 - Hypothyroidism, unspecified Coding
--- OUTSIDE RECORDS SUMMARY | 2025-07-05 14:34 | XMS_ITS | Data Portability ---
Author Organization ANGELIC Zapien s, [address] Address [address] [place] [address] Assessment No assessment recorded. Plan of Treatment Reminders Order Date Submit Date Provider Last Modified By Organization Details Last Modified Time Details Appointments None recorded. Lab rapid flu (A+B) 2023 024 [email or web address] [address], [address] [place], [address], 4 17:04:41 SARS CoV 2 (COVID-19) Ag, QL, IA, upper respiratory specimen 2023 024 [email or web address] [address], [address] [place], [address], 4 17:04:42 urinalysis, dipstick 2023 024 [email or web address] [address], [address] [place], [address], 4 17:04:44 culture, urine 2023 024 [facility], [address] [place] [address], [place], [address], 4 06:06:26 Referral None recorded. Procedures None recorded. Surgeries None recorded. Imaging None recorded. Medication Orders ondansetron 4 mg disintegrat ing tablet 2023 024 [email or web address] Not available 17:04:33 ondansetron 4 mg disintegrat ing tablet 2023 024 [email or web address] [facility]/Pharmacy #[id number], [address] [place] [address], [place], [address], 17:04:33 Patient TargetsNo targets recorded. Patient Instructions Encounter Date Encounter Id Patient Instructions Last Modified By Organization Details Last Modified Time 12/10/2023 [id number] nausea and vomiting: care instructions Not available [...] much worse, you should seek treatment immediately. [email or web address] Not available 12/10/2023 16:46:45 Reason for Referral None Reported. Results Created Date Observation Date Name Description Value Unit Range Abnormal Flag Note LastModifiedBy Organization Detail LastModifiedTime 12/10/1912/12/2023 URINE CULTU REYENI urine culture, routine FINAL REPORT Not Available [facility] ([facility]) [address] [facility], [place], [address], 12/12/2023 06:06:26 12/10/1912/12/2023 URINE CULTU REYENI result 1 COMMEN T Cultu re shows less than 10,00 0 colon y formi ng units of bacte mariola per rivera liter of urine . This colon y count is not gener ally consi dered to be clini weston signi sven t. Not Available [facility] ([facility]) [address] [facility], [place], [address], 12/12/2023 06:06:26 12/10/19 24 12/10/2023 urina lysis , dipst ick Unknown Analyte Normal = light yellow Not Available [facility] [place], [address], 12/10/2023 16:50:53 12/10/19 24 12/10/2023 urina lysis , dipst ick Unknown Analyte Yellow Not Available [facility] [address] [place], [address], 12/10/2023 16:50:53 12/10/19 24 12/10/2023 urina lysis , dipst ick Unknown Analyte Normal = clear Not Available [facility] [address] [place], [address], 12/10/2023 16:50:53 12/10/19 24 12/10/2023 urina lysis , dipst ick Unknown Analyte Clear Not Available [facility] [address] [place], [address], 12/10/2023 16:50:53 12/10/19 24 12/10/2023 urina lysis , dipst ick Unknown Analyte Normal = negati ve Not Available [address] [place], [address], 12/10/2023 16:50:53 12/10/19 24 12/10/2023 urina lysis , dipst ick Unknown Analyte Negati ve Not Available [address] [place], [address], 12/10/2023 16:50:53 12/10/19 24 12/10/2023 urina lysis , dipst ick Unknown Analyte Normal = Negati ve Not Available [address] [place], [address], 12/10/2023 16:50:53 12/10/19 24 12/10/2023 urina lysis , dipst ick Unknown Analyte Small Not Available [id number] [place] [address] [address] [place], [address], 12/10/2023 16:50:53 12/10/19 24 12/10/2023 urina lysis , dipst ick Unknown Analyte Normal = Negati ve Not Available [address] [place], [address], 12/10/2023 16:50:53 12/10/19 24 12/10/2023 urina lysis , dipst ick Unknown Analyte Negati ve Not Available [address] [place], [address], 12/10/2023 16:50:53 12/10/19 24 12/10/2023 urina lysis , dipst ick Unknown Analyte Normal = 1.010, 1.015, 1.020 Not Available [address] [place], [address], 12/10/2023 16:50:53 12/10/19 24 12/10/2023 urina lysis , dipst ick Unknown Analyte 1.030 Not Available [address] [place] [address] [address] [place], [address], 12/10/2023 16:50:53 12/10/19 24 12/10/2023 urina lysis , dipst ick Unknown Analyte Normal = Negati ve Not Available [address] [place], [address], 12/10/2023 16:50:53 12/10/19 24 12/10/2023 urina lysis , dipst ick Unknown Analyte Negati ve Not Available [address] [place], [address], 12/10/2023 16:50:53 12/10/19 24 12/10/2023 urina lysis , dipst ick Unknown Analyte Normal = 6.5, 7.0, 7.5, 8.0 Not Available [address] [place], [address], 12/10/2023 16:50:53 12/10/19 24 12/10/2023 urina lysis , dipst ick Unknown Analyte 5.5 Not Available [address] [place], [address], 12/10/2023 16:50:53 12/10/19 24 12/10/2023 urina lysis , dipst ick Unknown Analyte Normal = Negati ve Not Available [address] [place], [address], 12/10/2023 16:50:53 12/10/19 24 12/10/2023 urina lysis , dipst ick Unknown Analyte Negati ve Not Available [address] [place], [address], 12/10/2023 16:50:53 12/10/19 24 12/10/2023 urina lysis , dipst ick Unknown Analyte Normal = 0.2, 1.0 Not Available [address] [place], [address], 12/10/2023 16:50:53 12/10/19 24 12/10/2023 urina lysis , dipst ick Unknown Analyte Normal = Negati ve Not Available [address] [place], [address], 12/10/2023 16:50:53 12/10/19 24 12/10/2023 urina lysis , dipst ick Unknown Analyte Negati ve Not Available [address] [place], [address], 12/10/2023 16:50:53 12/10/19 24 12/10/2023 urina lysis , dipst ick Unknown Analyte Normal = Negati ve Not Available [address] [place], [address], 12/10/2023 16:50:53 12/10/19 24 12/10/2023 urina lysis , dipst ick Unknown Analyte Negati ve Not Available [address] [place], [address], 12/10/2023 16:50:53 12/10/19 24 12/10/2023 urina lysis , dipst ick Unknown Analyte 0.2 E.U./d L Not Available [address] [place], [address], 12/10/2023 16:50:53 12/10/19 24 12/10/2023 SARS CoV 2 (COVI D-19) Ag, QL, IA, upper respi rator y speci men Unknown Analyte negati ve Not Available [address] [place], [address], 12/10/2023 16:50:43 12/10/19 24 12/10/2023 SARS CoV 2 (COVI D-19) Ag, QL, IA, upper respi rator y speci men Unknown Analyte yes Not Available [facility] [address] [place], [address], 12/10/2023 16:50:43 12/10/19 24 12/10/2023 rapid flu (A+B) Unknown Analyte negati ve Not Available [address] [place], [address], 12/10/2023 16:50:34 12/10/19 24 12/10/2023 rapid flu (A+B) Unknown Analyte negati ve Not Available [address] [place], [address], 12/10/2023 16:50:34 12/10/19 24 12/10/2023 rapid flu (A+B) Unknown Analyte Not Available [address] [facility] [address] [place], [address], 12/10/2023 16:50:34 Result Notes None recorded. Problems Name Problem SNOMED Code Status Onset Date Resolution Date Notes Provider Name and Address Organization Details Recorded Time Fibromyalgia 637050499 Active ANGELIC Barragan [facility] 4 16:49:49 Disorder of thyroid gland 90737458 Active ANGELIC Barragan [facility] 4 16:50:00 Problem Notes None recorded. Medical Equipment None Reported. Allergies Allergen ID Allergen Name Allergen Category Reaction Reaction Severity Criticality Documentation Date Start Date Code Code System Note Provider Name and Address Organization Details Recorded Time 111186 Toradol medicatio n Not available Not available Not available 12/10/2023 72951 RxNorm ANGELIC Barragan [facility] 4 16:49:03 [...] Details Last Updated DateTime 4 162.56 cm 81910.7 4 g 99 % 99 % 91 /min 18 /min 96.2 [degF] 116/77 mm[Hg] Yesenia Naidu PA - [facility] 16:47:53 Date Recorded Body height Body mass index (BMI) Body weight Oxygen saturation Oxygen saturation in Arterial blood by Pulse oximetry Heart rate Respiratory rate Body temperature Systolic And Diastolic Provider Name and Address Organization Details Last Updated DateTime 4 162.56 cm 27.5 kg/m2 74719.7 8 g 96 % 96 % 84 [...] Of Your Most Recent Tobacco Screening? 12/10/2023 [email or web address] Information not available 12/10/2023 What Is Your Relationship Status? Single Information not available 12/17/2023 Are You Currently In School? No Information not available 12/17/2023 Sex: Unknown Functional Status Question Answer Note LastModified by Organization D etails LastModified Time Do you or have you ever used any other forms of tobacco or nicotine? No [email or web address] Information not available 12/10/2023 What is your level of alcohol consumption? None [email or web address] Information not available 12/10/2023 Are you currently employed? Yes Information not available 12/17/2023 Mental Status None recorded. Family History Relationship Description Onset Age of this Age Resolved Age Notes LastModified by Organization Details LastModified Time Father No current problems or disability [email or web address] Not available 02/2024 16:50:10 Mother No current problems or disability [email or web address] Not available 02/2024 16:50:10 Medical History No medical history recorded. Gynecological HistoryNo gynecological history recorded. Obstetrics History GPAL:G 0 P 0 0 0 0 Past Encounters Encounter ID Performer Location Encounter Start Date Encounter Closed Date Diagnosis/Indication Diagnosis SNOMED-CT Code Diagnosis ICD10 Code Diagnosis IMO Codes Diagnosis Note [id number] [address] [address] [place] [address] 2019 15:06:30 2019 17:03:48 [id number] [address] [place] [address] 05/17/2021 10:22:51 05/17/2021 13:44:56 [id number] [address] [address] [place] [address] 11/27/2018 13:40:56 11/27/2018 14:23:10 [id number] [address] [place] [address] 02/18/2020 10:11:47 02/18/2020 11:06:53 [id number] [place] [address] [place] [address] 12/10/2023 16:29:01 12/10/2023 17:29:38 Nausea and vomiting 19133213 R11.2 VSS and she does not have [...] agreement with the plan as outlined above. [id number] ANGELIC Barr [address] [facility] [address] [facility] [address] 12/17/2023 13:01:46 12/17/2023 13:29:02 Viral gastroenteritis 811738956 A08.4 Based on you exam and presentati [...] Blood in Urine. Thank you for using [employer] , please feel free to contact us [...] Name 12/17/2023 1 [facility] [facility] [facility] [id number] Bianca Alarcon [id number] Bianca robb 12/10/2023 1 [facility] (O) [id number] Bianca Alarcon [id number] Bianca Alarcon-Venecia robb Notes Date Note Type Note Provider Name and Address Organization Details Recorded Time 12/10/2023 text/html Nausea / Vomitin g UCReported by [email or web address] yo female c/o nausea, abdominal pain x 1 dconstipation x 1 dvomiting x 8 times since this morningstarted after eating a tuna sandwich no blood in vomit last vomited 1 h [employer] last PO yesterday last BM yesterday. no BM today. no bleeding AB pain across lower abdomen - crampy/colic no h/o abdominal surgery in the past No fever+ chillsNo coughNo wheezeNo difficulty breathing or respiratory distressNo CPNo congestionNo sinus painNo ear painNo sore throatNo Abdominal painNo diarrheaNo myalgiaNo fatigueNo rashNo HANo dizziness - endorses feeling LHNo recent travelNo known sick contacts ROS as noted in the HPI Royal Whitlock DO [address] [place], [address], [place] PA - [facility] 12/10/2023 17:13:10 12/17/2023 text/html 58 y/o female here with continued abdominal pain with gastro virus starting last week. Starting to feel a bit better, but wants to make sure she's on the right past ANGELIC Barr [address] [place], [address], [place] PA - [facility] 12/17/2023 13:27:00 OBGyn Episode No OBEpisode recorded.
--- OUTSIDE RECORDS SUMMARY | 2025-07-05 14:34 | XMS_ITS | Clinical Summary ---
Author Organization [facility] Address [address] [facility] [address] [place] [phone] Phone Care Team Providers Care Window Trimmer Apprentice Name Role Phone Artur Sweeney MD Primary [...] HEPATITIS C SCREENING 1982 HIV ONE-TIME SCREENING (18-65 YEARS) 1982 PAP SMEAR 1985 COLOGUARD 2009 COLONOSCOPY 2009 COLORECTAL CANCER SCREENING 2009 FIT TEST 2009 FOBT 2009 SIGMOIDOSCOPY 2009 VIRTUAL COLONOSCOPY 2009 PNEUMOCOCCAL VACCINES (50+ years) (1 of 1 - PCV) 2014 ZOSTER VACCINES (1 of 2) 2014 MAMMOGRAM 06/11/2021 06/11/2019 Adult Td,Tdap Booster 04/05/2023 04/05/2013, 008 INFLUENZA VACCINE (#1) 2025 , 05/09/2019, 06/19/2018, Additional history exists COVID-19 VACCINE (3 - season) 2025 10/09/2020, 09/11/2020 RSV VACCINE (1 - 1-dose [...] topic Medical Devices Not on file Insurance [facility] NON NSPG PCP [employer] NON NSPG PCP [employer] NON NSPG PCP S[employer] NON NSPG PCP S[employer] NON NSPG PCP [employer] NON NSPG PCP S[employer] NON NSPG PCP S[employer] NON NSPG PCP S[employer] [facility] [address] [place], [place] [address]ENSE NON NSPG PCP [employer]ARE Care Teams Window Trimmer Apprentice Relationship Specialty Start Date End Date Artur Sweeney MD PCP - General Endocrinology 05/15/19 Additional Source Comments The information contained in this document represents components of the legal health record. It is not the complete legal health record.[facility]
--- OUTSIDE RECORDS SUMMARY | 2025-07-05 14:34 | XMS_ITS | Clinical Summary ---
Author Organization [employer] Address [address] [place] [address] [address] [place] [address] Care Team Providers Care Sephora Operations Consultant Name Role Phone Unavailable Primary Care Provider [...] Encounters Date Type Department Care Team Description 06/03/2025 1:00 PM EDT Office Visit [facility] ADULT DENTAL [address] [place] [address] Rocio Silva Crowded teeth (Primary Dx); Dental calculus; Prognathism 05/27/2025 Travel from Last 3 Months Social History [...] Sign Reading Time Taken Comments Blood Pressure 126/70 06/03/2025 12:51 PM EDT Pulse 75 05/22/2024 3:18 PM EDT Temperature - - Respiratory Rate - - Oxygen Saturation - - Inhaled Oxygen Concentration - - Weight - - Height - - Body Mass Index - - Plan of Treatment Upcoming Encounters Date Type Department Care Team (Late st Contact Info) Description 12/02/2025 2:15 PM EDT Office Visit [facility] ADULT DENTAL [address] [place] [address] Rocio Silva [address] [place] [address] Health Maintenance Due Date Last Done Comments CT Colonography 1964 Colonoscopy 1964 Colorectal Cancer Screening 1964 Depression Screening 1964 FIT DNA/Cologuard 1964 FIT 1964 FOBT 1964 HIV Screening 1964 SDOH Screening 1964 Sigmoidoscopy 1964 Disability Screening 1964 Alcohol/Substance Use Screening 1976 Hepatitis C Screening 1982 Pap Smear 1985 Cervical Cancer Screening 1994 HPV/Cotest 1994 Hepatitis B Vaccines (4 of 4 - CpG-HepB 4-dose series) 08/11/2024 07/14/2024, 05/26/2024, 10/13/2023, Additional history exists Mammogram 03/29/2025 03/29/2023, 03/29/2023 Influenza Vaccine (#1) 2025 , 05/26/2024, 04/21/2023, Additional history exists Dental X-Ray: Bitewings 11/27/2025 11/27/19, 06/18/2020, 11/15/2018, Additional history exists Dental Oral Exam 12/02/2025 06/03/2025, , 06/18/2020, Additional history exists Dental Prophylaxis 12/02/2025 06/03/2025, 0 11/26/2024, 05/22/2024, Additional history exists Tobacco Screening 06/03/2026 06/03/2025 Dental X-Ray: Full Mouth 11/28/2027 11/26/2024, 06/05 DTaP/Tdap/Td Vaccines (3 - Td or Tdap) 11/21/2033 11/22/2023, 04/05/2013, 10/07/2007, Additional history exists RSV Patients and Patients Aged 60 years or older (1 - 1-dose 75+ series) 2039 Zoster Vaccines Completed 09/03/2021, 05/09/2021 Pneumococcal Vaccine: 50+ Years Completed 07/18/2023 COVID-19 Vaccine Completed 05/26/2024, , 10/09/2020, Additional history exists Hepatitis A Vaccines Aged Out 07/14/2024, 05/26/20 24 No longer eligible based on patient's age to complete this topic HIB Vaccines Aged Out No longer eligi ble based on patient's age to complete this topic HPV Vaccines Aged Out No longer eligi ble based on patient's age to complete this topic IPV Vaccines Aged Out No longer eligi ble based on patient's age to complete this topic Meningococcal B Vaccine Aged Out No l onger eligible based on patient's age to complete [...] Procedure Name Priority Date/Time Associated Diagnosis Comments PERIODIC ORAL EVALUATION - ESTABLISHED PATIENT Routine 06/03/2025 1:00 PM EDT ORAL HYGIENE INSTRUCTIONS Routine 06/03/2025 1:00 PM EDT Crowded teeth Dental calculus PROPHYLAXIS - ADULT Routine 06/03/2025 1 :00 PM EDT Dental calculus INTRAORAL - COMPLETE SERIES OF RADIOGRAPHIC IMAGES Routine 11/26/2024 2:00 PM EDT Dental calculus Crowded teeth from Last 3 Months or Most Recently Relevant to Health Maintenance [place] [address] [address] [place] [address]
--- OUTSIDE RECORDS SUMMARY | 2025-07-05 14:34 | XMS_ITS | Encounter Summary ---
Author Organization [employer] Address [address] [place] [address] [address] [place] [address] Care Team Providers Care Track Grinder Operator Name Role Phone Unavailable Primary Care Provider Unavailabl e Encounter Details Date Type Department Care Team (Latest Contact Info) Description 06/18/2020 Abstract [facility] CONVERSIONS Dental, Provider, DDS Social History [...] Description 12/02/2025 2:15 PM EDT Office Visit [facility] ADULT DENTAL [address] [place] [address] RicardoBalajiRocio [address] [place] [address] documented as of this encounter Visit Diagnoses Not on filedocumented in this encounter
--- OUTSIDE RECORDS SUMMARY | 2025-07-05 14:34 | XMS_ITS | Encounter Summary ---
Author Organization [employer] Address [address] [place] [address] [address] [place] [address] Care Team Providers Care Head Knitting Machine Fixer Name Role Phone Unavailable Primary Care Provider Unavailabl e Encounter Details Date Type Department Care Team (Latest Contact Info) Description 11/15/2018 Abstract [facility] CONVERSIONS Dental, Provider, DDS Social History [...] Description 12/02/2025 2:15 PM EDT Office Visit [facility] ADULT DENTAL [address] [place] [address] RicardoBalajiRocio [address] [place] [address] documented as of this encounter Visit Diagnoses Not on filedocumented in this encounter
== END 2025-07-05 14:20 | disposition home or self-care (01) ==
LOC: HO.HGI 13:37
PROVIDERS: PCP Nurse Practitioner; Visit Provider Nurse Practitioner
DX: R11.2 Nausea with vomiting, unspecified (principal); K57.92 Diverticulitis of intestine, part unspecified, without perforation or abscess without bleeding; K31.84 Gastroparesis; K22.10 Ulcer of esophagus without bleeding; K21.9 Gastro-esophageal reflux disease without esophagitis; E03.9 Hypothyroidism, unspecified; K59.04 Chronic idiopathic constipation
CPT/HCPCS: 99213

== ENCOUNTER → 2025-07-05 14:39 | Outpatient (BNV) | payer OTHER, SELFPAY | PROVIDERS: PCP Nurse Practitioner; Visit Provider Radiology Diagnostic Radiology | DX: R16.0 Hepatomegaly, not elsewhere classified (principal); K30 Functional dyspepsia | CPT/HCPCS: 74019 ==

== ENCOUNTER 2025-07-19 13:36 | Outpatient (AMB) | payer OTHER, SELFPAY ==
--- OUTSIDE RECORDS SUMMARY | 2024-01-05 05:46 | XMS_ITS | Continuity of Care Document ---
Author Organization [facility] Address [address] [place] [address] Phone Care Team Providers Care Behavioral Specialist Name Role Phone Ezekiel Cobian MD, ABSKerline, Cassie Unavailable Unava ilable Allergies, Adverse Reactions, Alerts Substance Reaction Status Criticality cat dander Active No Information KETOROLAC TROMETHAMINE Active No In formation Medications Medication Instructions Dosage Effective Dates (start - stop) Status Comments eszopiclone 2 mg tablet take 1 tablet by oral route every day at bedtime 2 MG - Active naproxen 500 mg tablet as needed - Act audie duloxetine 60 mg capsule,delayed release PLEASE SEE ATTACHED FOR DETAILED DIRECTIONS - Active omeprazole 40 mg capsule,delayed release - Active gabapentin 300 mg capsule TAKE 1 CAPSULE BY MOUTH EVERY NIGHT. - Active levothyroxine 112 mcg tablet TAKE 1 CAPSULE BY MOUTH 1 TIME EACH DAY IN THE MORNING. - Active cyclobenzaprine 10 mg tablet as needed - Active diclofenac sodium 75 mg tablet,delayed release as needed - Active atorvastatin 40 mg tablet TAKE 1 TABLET BY MOUTH EVERY NIGHT - Active oxybutynin chloride ER 5 mg tablet,extended release 24 hr TAKE 1 TABLET BY MOUTH EVERY DAY DO NOT CRUSH, CHEW, OR SPLIT as needed - Active Procedures Procedure Date Duplicate Encounter Home Sleep Study New Pt Ov Level 4 Advance Directives Directive Yes / No Effective Date File Name No Information Encounters Encounter Description Practice Location Reason(s) For Visit Diagnoses Date Provider Providers Copied on Encounter [facility] , [address] [place] [address], [address], [place] tel:[phone] [facility] No Information 4 Mango Matthews. [address] [place] [address], [id number] , [place]. tel:[phone] [facility] , [address] [place] [address], [address], [place] tel:[phone] [facility] No Information 3 Mango Matthews. [address] [place] [address], [id number] , [place]. tel:[phone] [facility] , [address] [place] [address], [facility], [place] tel:[phone] [facility] No Information 3 Mango Matthews. [address] [place] [address], [id number] , [place]. tel:[phone] Referring Provider: PCP No. [facility] , [address] [place] [address], [facility], [place] tel:[phone] [facility] No Information 3 Mango Matthews. [address] [place] [address], [id number] , [place]. tel:[phone] Referring Provider: Cassie Churchill, [address] [place] [address], [address] . tel:[phone] New Pt Ov Level 4 [facility] , [address] [place] [address], [address], [place] tel:[phone] [facility] Body mass index (BMI) 28.0-28.9, adultObstructive sleep apnea (adult) (pediatric)Psychophy siologic insomniaFibromyalgia Apr- 3 Mango Matthews. [address] [place] [address], [id number] , [place]. tel:[phone] Referring Provider: Marleny franks MD, [address] [place], [address]. tel:[phone] Family History Family Member Type Diagnosis Age At Onset Brother Problem (finding) Hypertension Brother Problem (finding) Thyroid disorder Mother Problem (finding) Hypertension Father Problem (finding) Hypertension Father Problem (finding) Thyroid disorder Mother Problem (finding) Arthritis Mother Problem (finding) Thyroid disorder Immunizations Vaccine Date Status Comments Flu (split) (3 yrs or older) administered Note: Per [place] [facility] ; Source: Other Provider Payers Payer name Insurance type Covered constitution party ID Clive keys(s) Aetna [id number] Social History Type Description Quantity Date Captured Comments Alcohol Use Details Unknown Caffeine Use Details Unknown Tobacco Use Status No Information Smoking Status No Information Sex Female Sexual Orientation Straight or heterosexual Chief Complaint And Reason For Visit No Information Reason For Referral Reason For Referral No Information Plan Of Treatment Date Type Action Status Goal Dietary management education , guidance, and counseling completed Referral Ordered: Home Sleep Apnea Test (HSAT) ordered History Of Present Illness Encounter Date Complaint History Of Prese nt Illness No Information Functional Status Date Functional Assessmen t No Information Instructions Date Instruction Additional Infor mation Dietary management e ducation, guidance, and counseling Related to Body mass index [BMI] 28.0-28.9, adult Assessments Type Assessment Date No Information Patient Care Teams Name Effective Dates (start - stop) Status Members No Information
--- OUTSIDE RECORDS SUMMARY | 2024-01-05 05:46 | XMS_ITS | Continuity of Care Document ---
Author Organization [facility] Address [address] [place] [address] Phone Care Team Providers Care Freelance Patternmaker Name Role Phone Ezekiel Cobian MD, ABSKerline, [...] Copied on Encounter [facility] , [address] [place] [address], [address], [place] tel:[phone] [facility] No Information 4 Mango Matthews. [address] [place] [address], [id number] , [place]. tel:[phone] [facility] , [address] [place] [address], [id number], [place] tel:[phone] [facility] No Information 3 Mango Matthews. [address] [place] [address], [id number] , [place]. tel:[phone] [facility] , [address] [place] [address], [facility], [place] tel:[phone] [facility] No Information 3 Mango Matthews. [address] [place] [address], [id number] , [place]. tel:[phone] Referring Provider: PCP No. [facility] , [address] [place] [address], [facility], [place] tel:[phone] [facility] No Information 3 Mango Matthews. [address] [place] [address], [id number] , [place]. tel:[phone] Referring Provider: Cassie Churchill, [address] [place] [address], [address] . tel:[phone] New Pt Ov Level 4 [facility] , [address] [place] [address], [address], [place] tel:[phone] [facility] Body mass index (BMI) 28.0-28.9, adultObstructive sleep apnea (adult) (pediatric)Psychophy siologic insomniaFibromyalgia Apr- 3 Mango Matthews. [address] [place] [address], [id number] , [place]. tel:[phone] Referring Provider: Marleny franks MD, [address] [place], [address]. tel:[phone] Family History Family Member Type Diagnosis Age [...] Provider Payers Payer name Insurance type Covered alliance party ID Clive keys(s) Aetna [id number] Social History Type Description Quantity Date Captured [...]
--- OUTSIDE RECORDS SUMMARY | 2024-01-05 05:46 | XMS_ITS | Continuity of Care Document ---
Author Organization [facility] Address [address] [place] [address] Phone Care Team Providers Care Head Strength And Conditioning Coach Name Role Phone Ezekiel Cobian MD, ABSKerline, [...] Copied on Encounter [facility] , [address] [place] [address], [address], [place] tel:[phone] [facility] No Information 4 Mango Matthews. [address] [place] [address], [id number] , [place]. tel:[phone] [facility] , [address] [place] [address], [address], [place] tel:[phone] [facility] No Information 3 Mango Matthews. [address] [place] [address], [id number] , [place]. tel:[phone] [facility] , [address] [place] [address], [facility], [place] tel:[phone] [facility] No Information 3 Mango Matthews. [address] [place] [address], [id number] , [place]. tel:[phone] Referring Provider: PCP No. [facility] , [address] [place] [address], [facility], [place] tel:[phone] [facility] No Information 3 Mango Matthews. [address] [place] [address], [id number] , [place]. tel:[phone] Referring Provider: Cassie Churchill, [address] [place] [address], [id number] . tel:[phone] New Pt Ov Level 4 [facility] , [address] [place] [address], [address], [place] tel:[phone] [facility] Body mass index (BMI) 28.0-28.9, adultObstructive sleep apnea (adult) (pediatric)Psychophy siologic insomniaFibromyalgia Apr- 3 Mango Matthews. [address] [place] [address], [id number] , [place]. tel:[phone] Referring Provider: Marleny franks MD, [address] [place], [address]. tel:[phone] Family History Family Member Type Diagnosis Age [...] Provider Payers Payer name Insurance type Covered democrat ID Clive keys(s) Aetna [id number] Social History Type Description Quantity Date Captured [...]
[2025-07-19 13:38] VITALS: BP 121/59; PULSE 97; BMI 22.7
--- NOTE | 2025-07-19 13:38 | A.OFFVIS_ITS ---
Vital Signs 07/19/25 13:38 Height 5 ft 4 in Weight 132 lb BMI 22.7 BP 121/59 L Blood Pressure Location Rt brachial Position Sitting Pulse 97 Intake Visit Reasons: 2 wks CIC Intake Note: Bianca presents in office follow up of Xray and labs. CC: Patient reports that she is feeling better. Denies any new GI symptoms today. General Studies Program Chair Required: No Accompanied by: Self / Same As Patient Allergies ketorolac Allergy (Unknown, Verified 07/19/25 13:41) anaphylaxis HPI HPI 2 wks CIC: Details: Assessment & Plan (1) Nausea and vomiting: Code(s): R11.2 - Nausea with vomiting, unspecified Category: Medical (2) Diverticulitis: Code(s): K57.92 - Diverticulitis of intestine, part unspecified, without perforation or abscess without bleeding Category: Medical (3) Gastroparesis: Code(s): K31.84 - Gastroparesis Category: Medical (4) Erosive esophagitis: Code(s): K22.10 - Ulcer of esophagus without bleeding Category: Medical (5) GERD (gastroesophageal reflux disease): Code(s): K21.9 - Gastro-esophageal reflux disease without esophagitis Category: Medical (6) Hypothyroid: Code(s): E03.9 - Hypothyroidism, unspecified Category: Medical (7) Chronic idiopathic constipation: Code(s): K59.04 - Chronic idiopathic constipation Category: Medical Orders: Orders TSH reflex Free T4 Today E03.9 - Hypothyroidism, unspecified Thyroid Peroxidase Antibodies Today E03.9 - Hypothyroidism, unspecified XR abdomen w decubitus Today E03.9 - Hypothyroidism, unspecified, K59.04 - Chronic idiopathic constipation Medications: New metoclopramide HCl (Reglan) 10 mg PO QID 120 tabs 6RF Refilled pantoprazole 40 mg PO BID 180 tabs 1RF Discontinued metoclopramide HCl (Reglan) Discontinued Reason: Doctor's Order 10 mg (2 x 5 mg) PO QID 240 tabs 6RF K31.84 - Gastroparesis, K59.04 - Chronic idiopathic constipation Resumed polyethylene glycol 3350 (Miralax) 17 grams PO BID 476 grams 6RF prucalopride (Motegrity) 1 mg PO DAILY 90 tabs 1RF 90 days polyethylene glycol 3350 (Miralax) 17 grams PO DAILY 238 grams 6RF prucalopride (Motegrity) 1 mg PO DAILY 90 days 90 tabs 1RF - Take Metoclopramide 10 mg as directed, four times a day. - Take MiraLax twice a day, once in the morning and once at night. - Proceed to the lab and x-ray department for the ordered abdominal x-ray. - Continue taking Ambien as needed for sleep. - Follow-up in two weeks for review and management plan update. LABS: Laboratory Tests 07/05/25 14:37 TSH 2.32 Thyroid Peroxidase Ab 1 X-RAY OF THE ABDOMEN 07/05/2025 There is a typographic error under the findings, fifth sentence which should read as follow: The liver shadow projects below the rib cage. XR ABDOMEN COMPLETE CLINICAL INDICATION: K59.04 - Chronic idiopathic constipation COMPARISON: Correlated to CT dated January 06, 2025. TECHNIQUE: AP view in supine and upright position of the abdomen. FINDINGS: No free of any the diaphragm. Gas in a nondilated large intestine. Abundant stool. No air-fluid levels. There are shadow projects below the rib cage. Multiple, 5 mm sclerotic lesions in the right femoral head and neck. Multilevel spondylosis. XR/XR abdomen min 2V IMPRESSION: No intestinal obstruction pattern. No gross pneumoperitoneum. Hepatomegaly, mild. TODAY'S VISIT Patient presents for follow-up regarding bowel symptoms. Reports feeling better overall. She has been taking metoclopramide by using two 5 mg tablets per dose and is trying to take MiraLAX twice daily. She notes increased bowel movements and feels less bloated with less upset stomach. [facility] Medical History (Updated 07/05/25 @ 13:49 by VERNA Parker) Hypothyroid Esophagitis Sleep apnea Urinary incontinence Elevated cholesterol Fibromyalgia Hypothyroid Diabetes GERD (gastroesophageal reflux disease) Surgical History H/O colonoscopy History of section Hx of tonsillectomy Family History Maternal Aunt Diverticulosis Paternal Aunt H/O colectomy Social History Alcohol intake: never Patient Tobacco Use Status: Never used Tobacco Review of Systems Const Denies fatigue, Denies fever(s), Denies night sweats, Denies poor appetite and Denies weight loss ENT Reports Normal hearing present, Denies dental pain, Denies dysphagia, Denies hearing loss, Denies mouth pain, Denies odynophagia, Denies throat swelling, Denies tongue swelling and Reports other (Dentition adequate) Card Reports no additional complaints Resp Reports no additional complaints GI Details: Denies abdominal pain, Denies melena, Reports bloating, Denies hematochezia, Reports constipation, Denies GI cramping, Denies dysphagia, Denies excessive flatus, Denies early satiety, Reports heartburn, Denies diarrhea, Denies nausea, Denies odynophagia, Denies vomiting and Denies hematemesis Skin/Breast Denies pruritus, Denies lesions, Denies rash and Denies jaundice Neuro Reports Normal hearing present and Denies Abnormal speech present Endo Denies fatigue Aller/Immun Denies throat swelling and Denies tongue swelling Physical Exam Vital Signs: Last Vital Signs Pulse 97 07/19/25 13:38 BP 121/59 L 07/19/25 13:38 BMI result Body Mass Index 22.7 Const General: cooperative, no acute distress, well developed and well groomed Nutritional Appearance: average body habitus and well nourished Orientation/consciousness: oriented to person, oriented to place and oriented to time Limitations: No language barrier HEENT Head: Yes normocephalic and Yes atraumatic Eyes General: appearance normal, both eyes and all related structures Pupils: Equal, round and reactive pupils present Neck Neck: Yes normal visual inspection and Yes no lymphadenopathy Thyroid: Thyroid normal Resp Effort & Inspection: normal respiratory effort and able to speak in complete sentences Auscultation: clear to auscultation bilaterally Cardio Rate: regular rate Rhythm: regular rhythm Heart sounds: Normal, physiologic split S2 sound present Peripheral pulses: radial pulses present and posterior tibial pulses present GI Inspection: No distended and No Abdominal panniculus present Palpation (GI): Soft to palpation, nontender, no guarding, not rigid and No hepatosplenomegaly present Percussion: Yes normal to percussion Auscultation: normal bowel sounds Rectal Exam - Female: deferred Skin General skin exam: no rashes or lesions noted, turgor normal, skin not dry, no jaundice, No spider nevi and no striae Rashes: no rashes Nails: normal Neuro General: oriented to person, oriented to place and oriented to time Cranial nerves: Yes Equal, round and reactive pupils present and Yes Normal hearing present Speech: No Abnormal speech present Extrem General: Yes normal to inspection, No clubbing, No cyanosis and No edema Psych Appearance: grossly normal and well kempt Mental Status: mental status grossly normal Speech and movement: Normal speech and movement present Affect: normal affect Attitude: cooperative Thought process: Normal thought process present and not confabulating Thought content: Normal thought content present Insight: Good insight present (Psych) Judgement: Good judgement present (Psych) Assessment & Plan Assessment & Plan (1) GERD (gastroesophageal reflux disease): Code(s): K21.9 - Gastro-esophageal reflux disease without esophagitis Category: Medical (2) Gastroparesis: Code(s): K31.84 - Gastroparesis Category: Medical (3) Erosive esophagitis: Code(s): K22.10 - Ulcer of esophagus without bleeding Category: Medical (4) Chronic idiopathic constipation: Code(s): K59.04 - Chronic idiopathic constipation Category: Medical Plan Her current GI regimen consists of pantoprazole twice a day, Reglan 10 mg 4 times a day, MiraLax twice a day, and Motegrity. Patient presents for follow-up regarding bowel symptoms. Reports feeling better overall. She has been taking metoclopramide by using two 5 mg tablets per dose and is trying to take MiraLAX twice daily. She notes increased bowel movements and feels less bloated with less upset stomach. Bowel symptoms with stool burden on imaging, improving: Symptoms improving with current regimen, with increased bowel movements and decreased bloating/abdominal upset. - Continue MiraLAX twice daily. - Continue metoclopramide at 10 mg four times daily; 10 mg tablets ordered to reduce pill burden. Instructed patient to verify dosing when switching tablets (one 10 mg tablet four times daily). - Counseling provided that bowel motility tends to slow with age; long-term MiraLAX may be needed. - Follow up in 2 months; will accommodate scheduling around potential travel. Thyroid function: Recent testing normal. - No intervention needed at this time. Coding Level of Care Code Est Pt Level 3 (30184) Diagnoses GERD (gastroesophageal reflux disease) K21.9 Gastroparesis K31.84 Erosive esophagitis K22.10 Chronic idiopathic constipation K59.04
--- OUTSIDE RECORDS SUMMARY | 2025-07-19 19:58 | XMS_ITS | Data Portability ---
Author Organization ANGELIC Zapien s, [address] Address [address] [place] [address] Assessment No assessment recorded. Plan of Treatment Reminders Order Date Submit Date Provider Last Modified By Organization Details Last Modified Time Details Appointments None recorded. Lab rapid flu (A+B) 2023 024 [email or web address] [address], [address] [place], [address], 4 17:04:41 SARS CoV 2 (COVID-19) Ag, QL, IA, upper respiratory specimen 2023 024 [email or web address] [address], [address] [place], [address], 4 17:04:42 urinalysis, dipstick 2023 024 [email or web address] [address], [address] [place], [address], 4 17:04:44 culture, urine 2023 024 [facility] [address] [place] [address], [place], [address], 4 06:06:26 Referral None recorded. Procedures None recorded. Surgeries None recorded. Imaging None recorded. Medication Orders ondansetron 4 mg disintegrat ing tablet 2023 024 [email or web address] Not available 17:04:33 ondansetron 4 mg disintegrat ing tablet 2023 024 [email or web address] [facility] #[id number], [address] [place] [address], [place], [address], 17:04:33 Patient TargetsNo targets recorded. Patient Instructions Encounter Date Encounter Id Patient Instructions Last Modified By Organization Details Last Modified Time 12/10/2023 [id number] nausea and vomiting: care instructions Not available [...] much worse, you should seek treatment immediately. [email or web address] Not available 12/10/2023 16:46:45 Reason for Referral None Reported. Results Created Date Observation Date Name Description Value Unit Range Abnormal Flag Note LastModifiedBy Organization Detail LastModifiedTime 12/10/1912/12/2023 URINE CULTU REYENI urine culture, routine FINAL REPORT Not Available [facility] ([facility]) [address] [facility], [place], [address], 12/12/2023 06:06:26 12/10/1912/12/2023 URINE CULTU REYENI result 1 COMMEN T Cultu re shows less than 10,00 0 colon y formi ng units of bacte mariola per rivera liter of urine . This colon y count is not gener ally consi dered to be clini weston signi sven t. Not Available [facility] ([facility]) [address] [facility], [place], [address], 12/12/2023 06:06:26 12/10/19 24 12/10/2023 urina lysis , dipst ick Unknown Analyte Normal = light yellow Not Available [facility] [address] [address] [place], [address], 12/10/2023 16:50:53 12/10/19 24 12/10/2023 urina lysis , dipst ick Unknown Analyte Yellow Not Available [facility] [address] [place], [address], 12/10/2023 16:50:53 12/10/19 24 12/10/2023 urina lysis , dipst ick Unknown Analyte Normal = clear Not Available [facility] [address] [place], [address], 12/10/2023 16:50:53 12/10/19 24 12/10/2023 urina lysis , dipst ick Unknown Analyte Clear Not Available [facility] [address] [place], [address], 12/10/2023 16:50:53 12/10/19 24 12/10/2023 urina lysis , dipst ick Unknown Analyte Normal = negati ve Not Available [address] [place], [address], 12/10/2023 16:50:53 12/10/19 24 12/10/2023 urina lysis , dipst ick Unknown Analyte Negati ve Not Available [address] [place], [address], 12/10/2023 16:50:53 12/10/19 24 12/10/2023 urina lysis , dipst ick Unknown Analyte Normal = Negati ve Not Available [address] [place], [address], 12/10/2023 16:50:53 12/10/19 24 12/10/2023 urina lysis , dipst ick Unknown Analyte Small Not Available [address] [place] [address] [address] [place], [address], 12/10/2023 16:50:53 12/10/19 24 12/10/2023 urina lysis , dipst ick Unknown Analyte Normal = Negati ve Not Available [address] [place], [address], 12/10/2023 16:50:53 12/10/19 24 12/10/2023 urina lysis , dipst ick Unknown Analyte Negati ve Not Available [address] [place], [address], 12/10/2023 16:50:53 12/10/19 24 12/10/2023 urina lysis , dipst ick Unknown Analyte Normal = 1.010, 1.015, 1.020 Not Available [address] [place], [address], 12/10/2023 16:50:53 12/10/19 24 12/10/2023 urina lysis , dipst ick Unknown Analyte 1.030 Not Available [address] [place] [address] [address] [place], [address], 12/10/2023 16:50:53 12/10/19 24 12/10/2023 urina lysis , dipst ick Unknown Analyte Normal = Negati ve Not Available [address] [place], [address], 12/10/2023 16:50:53 12/10/19 24 12/10/2023 urina lysis , dipst ick Unknown Analyte Negati ve Not Available [address] [place], [address], 12/10/2023 16:50:53 12/10/19 24 12/10/2023 urina lysis , dipst ick Unknown Analyte Normal = 6.5, 7.0, 7.5, 8.0 Not Available [address] [place], [address], 12/10/2023 16:50:53 12/10/19 24 12/10/2023 urina lysis , dipst ick Unknown Analyte 5.5 Not Available [address] [place], [address], 12/10/2023 16:50:53 12/10/19 24 12/10/2023 urina lysis , dipst ick Unknown Analyte Normal = Negati ve Not Available [address] [place], [address], 12/10/2023 16:50:53 12/10/19 24 12/10/2023 urina lysis , dipst ick Unknown Analyte Negati ve Not Available [address] [place], [address], 12/10/2023 16:50:53 12/10/19 24 12/10/2023 urina lysis , dipst ick Unknown Analyte Normal = 0.2, 1.0 Not Available [address] [place], [address], 12/10/2023 16:50:53 12/10/19 24 12/10/2023 urina lysis , dipst ick Unknown Analyte Normal = Negati ve Not Available [address] [place], [address], 12/10/2023 16:50:53 12/10/19 24 12/10/2023 urina lysis , dipst ick Unknown Analyte Negati ve Not Available [address] [place], [address], 12/10/2023 16:50:53 12/10/19 24 12/10/2023 urina lysis , dipst ick Unknown Analyte Normal = Negati ve Not Available [address] [place], [address], 12/10/2023 16:50:53 12/10/19 24 12/10/2023 urina lysis , dipst ick Unknown Analyte Negati ve Not Available [address] [place], [address], 12/10/2023 16:50:53 12/10/19 24 12/10/2023 urina lysis , dipst ick Unknown Analyte 0.2 E.U./d L Not Available [address] [place], [address], 12/10/2023 16:50:53 12/10/19 24 12/10/2023 SARS CoV 2 (COVI D-19) Ag, QL, IA, upper respi rator y speci men Unknown Analyte negati ve Not Available [address] [place], [address], 12/10/2023 16:50:43 12/10/19 24 12/10/2023 SARS CoV 2 (COVI D-19) Ag, QL, IA, upper respi rator y speci men Unknown Analyte yes Not Available [facility] [address] [place], [address], 12/10/2023 16:50:43 12/10/19 24 12/10/2023 rapid flu (A+B) Unknown Analyte negati ve Not Available [address] [place], [address], 12/10/2023 16:50:34 12/10/19 24 12/10/2023 rapid flu (A+B) Unknown Analyte negati ve Not Available [address] [place], [address], 12/10/2023 16:50:34 12/10/19 24 12/10/2023 rapid flu (A+B) Unknown Analyte Not Available [address] [facility] [address] [place], [address], 12/10/2023 16:50:34 Result Notes None recorded. Problems Name Problem SNOMED Code Status Onset Date Resolution Date Notes Provider Name and Address Organization Details Recorded Time Fibromyalgia 626337530 Active ANGELIC Barragan [facility] 4 16:49:49 Disorder of thyroid gland 23697627 Active ANGELIC Barragan [facility] 4 16:50:00 Problem Notes None recorded. Medical Equipment None Reported. Allergies Allergen ID Allergen Name Allergen Category Reaction Reaction Severity Criticality Documentation Date Start Date Code Code System Note Provider Name and Address Organization Details Recorded Time 424947 Toradol medicatio n Not available Not available Not available 12/10/2023 66725 RxNorm ANGELIC Barragan [facility] 4 16:49:03 [...] Details Last Updated DateTime 4 162.56 cm 41184.7 4 g 99 % 99 % 91 [...] Updated DateTime 4 162.56 cm 27.5 kg/m2 69590.7 8 g 96 % 96 % 84 [...] Of Your Most Recent Tobacco Screening? 12/10/2023 [email or web address] Information not available 12/10/2023 What Is Your Relationship Status? Single Information not available 12/17/2023 Are You Currently In School? No Information not available 12/17/2023 Sex: Unknown Functional Status Question Answer Note LastModified by Organization D etails LastModified Time Do you or have you ever used any other forms of tobacco or nicotine? No [email or web address] Information not available 12/10/2023 What is your level of alcohol consumption? None [email or web address] Information not available 12/10/2023 Are you currently employed? Yes Information not available 12/17/2023 Mental Status None recorded. Family History Relationship Description Onset Age of this Age Resolved Age Notes LastModified by Organization Details LastModified Time Father No current problems or disability Not available 02/2024 16:50:10 Mother No current problems or disability [email or web address] Not available 02/2024 16:50:10 Medical History No medical history recorded. Gynecological HistoryNo gynecological history recorded. Obstetrics History GPAL:G 0 P 0 0 0 0 Past Encounters Encounter ID Performer Location Encounter Start Date Encounter Closed Date Diagnosis/Indication Diagnosis SNOMED-CT Code Diagnosis ICD10 Code Diagnosis IMO Codes Diagnosis Note [id number] [address] [place] [address] 2019 15:06:30 2019 17:03:48 [id number] [address] [place] [address] 05/17/2021 10:22:51 05/17/2021 13:44:56 [id number] [address] [address] [place] [address] 11/27/2018 13:40:56 11/27/2018 14:23:10 [id number] [address] [place] [address] 02/18/2020 10:11:47 02/18/2020 11:06:53 [id number] [place] [address] [place] [address] 12/10/2023 16:29:01 12/10/2023 17:29:38 Nausea and vomiting [id number] R11.2 VSS and she does not have [...] agreement with the plan as outlined above. [id number] ANGELIC Barr [address] [facility] [address] [facility] [address] 12/17/2023 13:01:46 12/17/2023 13:29:02 Viral gastroenteritis [id number] A08.4 Based on you exam and presentati [...] Blood in Urine. Thank you for using [facility] , please feel free to contact us [...] Name 12/17/2023 1 [facility] [facility] [id number] Bianca Alarcon [id number] Bianca robb 12/10/2023 1 [facility] (O) [id number] Bianca Alarcon [id number] Bianca Alarcon-Venecia robb Notes Date Note Type Note Provider Name and Address Organization Details Recorded Time 12/10/2023 text/html Nausea / Vomitin g UCReported by [email or web address] yo female c/o nausea, abdominal pain x 1 dconstipation x 1 dvomiting x 8 times since this morningstarted after eating a tuna sandwich no blood in vomit last vomited 1 h [employer] last PO yesterday last BM yesterday. no [...] Royal Whitlock DO [address] [place], [address], [place] - [facility] 12/10/2023 17:13:10 12/17/2023 text/html 58 y/o female here with continued abdominal pain with gastro virus starting last week. Starting to feel a bit better, but wants to make sure she's on the right past ANGELIC Barr [address] [place], [address], [place] - [facility] 12/17/2023 13:27:00 OBGyn Episode No OBEpisode recorded.
--- OUTSIDE RECORDS SUMMARY | 2025-07-19 19:58 | XMS_ITS | Clinical Summary ---
Author Organization [facility] Address [address] [facility] [address] [place] [phone] Phone Care Team Providers Care Engagement Liaison Name Role Phone Artur Sweeney MD Primary [...] patient's age to complete this topic IPV VACCINES Aged Out No longer eligi ble based on patient's age to complete this topic MENINGOCOCCAL VACCINES (ACWY) Aged Out No longer eligible based on patient's age to complete this topic MENINGOCOCCAL VACCINES (B) Aged Out N o longer eligible based on patient's age to complete this topic Medical Devices Not on file Insurance WELLSENSE NON NSPG PCP SILVER [place] CONNE[employer]CARE WELLSENSE NON NSPG PCP SILVER [employer] [place], [place] [address]ENSE NON NSPG PCP SILVER [employer] CONNE[employer] WELL[employer]ENSE NON NSPG PCP S[employer]VER [employer] CONNE[employer] WELLSENSE NON NSPG PCP SILVER [employer]ITY CONNECTORCARE WELLSENSE NON NSPG PCP SILVER CLARITY CONNECTORCARE WELLSENSE NON NSPG PCP SILVER CLARITY CONNECTORCARE WELLSENSE NON NSPG PCP SILVER CLARITY CONNECTORCARE WELLSENSE NON NSPG PCP SILVER CLARITY CONNECTORCARE Care Teams Engagement Liaison Relationship Specialty Start Date End Date Artur Sweeney MD PCP - General Endocrinology 05/15/19 Additional Source Comments The information contained in this document represents components of the legal health record. It is not the complete legal health record.[facility]
--- OUTSIDE RECORDS SUMMARY | 2025-07-19 19:58 | XMS_ITS | Encounter Summary ---
Author Organization [employer] Address [address] [place] [address] [address] [place] [address] Care Team Providers Care Singeing Torch Operator Name Role Phone Unavailable Primary Care Provider Unavailabl e Encounter Details Date Type Department Care Team (Latest Contact Info) Description 11/15/2018 Abstract [facility] CONVERSIONS Dental, Provider, DDS Social History [...] Description 12/02/2025 2:15 PM EDT Office Visit [facility] ADULT DENTAL [address] [place] [address] RicardoBalajiRocio [address] [place] [address] documented as of this encounter Visit Diagnoses Not on filedocumented in this encounter
--- OUTSIDE RECORDS SUMMARY | 2025-07-19 19:59 | XMS_ITS | Encounter Summary ---
Author Organization [employer] Address [address] [place] [address] [address] [place] [address] Care Team Providers Care Page Technician Name Role Phone Unavailable Primary Care Provider Unavailabl e Encounter Details Date Type Department Care Team (Latest Contact Info) Description 06/18/2020 Abstract [facility] CONVERSIONS Dental, Provider, DDS Social History [...] Description 12/02/2025 2:15 PM EDT Office Visit [facility] ADULT DENTAL [address] [place] [address] Ric[address] [place] [address] documented as of this encounter Visit Diagnoses Not on filedocumented in this encounter
--- OUTSIDE RECORDS SUMMARY | 2025-07-19 19:59 | XMS_ITS | Clinical Summary ---
Author Organization [employer] Address [address] [facility] 7t [place] [address] Care Team Providers Care Mill Labor Supervisor Name Role Phone Unavailable Primary Care Provider [...] Description 06/03/2025 1:00 PM EDT Office Visit [facility] [address] [place] [address] Rocio Silva Crowded teeth (Primary Dx); Dental [...] Description 12/02/2025 2:15 PM EDT Office Visit [facility] [address] [place] [address] Rocio Silva [address] [place] [address] Health Maintenance Due Date Last Done Comments [...] Additional history exists Mammogram 03/29/2025 03/29/2023, 03/29/2023 COVID-19 Vaccine ( season) 2025 05/26/2024, 09/03/2021, 10/09/2020, Additional history exists Influenza Vaccine (#1) 2025 , 05/26/2024, 04/21/2023, [...] 05/09/2021 Pneumococcal Vaccine: 50+ Years Completed 07/18/2023 Hepatitis A Vaccines Aged Out 07/14/2024, 05/26/20 [...] Most Recently Relevant to Health Maintenance [place] [address] [place] [address]
== END 2025-07-19 13:56 | disposition home or self-care (01) ==
LOC: HO.HGI 13:36
PROVIDERS: PCP Nurse Practitioner; Visit Provider Nurse Practitioner
DX: K21.9 Gastro-esophageal reflux disease without esophagitis (principal); K31.84 Gastroparesis; K22.10 Ulcer of esophagus without bleeding; K59.04 Chronic idiopathic constipation
CPT/HCPCS: 99213

== ENCOUNTER 2025-08-15 14:33 | Outpatient (AMB) | payer OTHER, SELFPAY ==
--- OUTSIDE RECORDS SUMMARY | 2024-01-05 05:46 | XMS_ITS | Continuity of Care Document ---
Author Organization [facility] Address [address] [place] [address] Phone Care Team Providers Care Supervisor Printing Shop Name Role Phone Ezekiel Cobian MD, JONN, Cassie Unavailable Unava ilable Allergies, Adverse Reactions, Alerts Substance Reaction Status Criticality cat dander Active No Information KETOROLAC TROMETHAMINE Active No In formation Medications Medication Instructions Dosage Dose Quantity Effective Dates (start - stop) Status Indication Fill Status Comments eszopiclone 2 mg tablet take 1 tablet by oral route every day at bedtime 2 MG 1 tablet 3 - Active naproxen 500 mg tablet as needed 2 MG 1 tablet 3 - Active duloxetine 60 mg capsule,cb yed release PLEASE SEE ATTACHED FOR DETAILED DIRECTIONS 2 MG 1 tablet 3 - Active omeprazole 40 mg capsule,cb yed release 2 MG 1 tablet 3 - Active gabapentin 300 mg capsule TAKE 1 CAPSULE BY MOUTH EVERY NIGHT. 2 MG 1 tablet 3 - Active levothyroxin e 112 mcg tablet TAKE 1 CAPSULE BY MOUTH 1 TIME EACH DAY IN THE MORNING. 2 MG 1 tablet 3 - Active cyclobenzapr ine 10 mg tablet as needed 2 MG 1 tablet 3 - Active diclofenac sodium 75 mg tablet,delay ed release as needed 2 MG 1 tablet 3 - Active atorvastatin 40 mg tablet TAKE 1 TABLET BY MOUTH EVERY NIGHT 2 MG 1 tablet 3 - Active oxybutynin chloride ER 5 mg tablet,exten ded release 24 hr TAKE 1 TABLET BY MOUTH EVERY DAY DO NOT CRUSH, CHEW, OR SPLIT as needed 2 MG 1 tablet 3 - Active Problems Condition Type Effective Dates (start - stop) Diagnosed Date Clinical Status Comments Obstructive sleep apnea syndrome Problem (finding) Active (qualifier value) Psychophysiologic insomnia Problem (finding) Active (qualifier value) Fibromyalgia Problem (finding) Active (qualifier value) Advance Directives Directive Yes / No Effective Date File Name No Information Encounters Encounter Description Practice Location Reason(s) For Visit Diagnoses Date Provider Encounter Disposition [facility] , [address] [place] [address], [facility], tel:[phone] [facility] No Information 4 Mango Matthews. [address] [place] [address], [id number] , [place]. tel:[phone] [facility] , [address] [place] [address], [address], tel:[phone] [facility] No Information 3 Mango Matthews. [address] [place] [address], [id number] , [place]. tel:[phone] [facility] , [address] [place] [address], [address], [place] tel:[phone] [facility] No Information 3 Mango Matthews. [address] [place] [address], [id number] , [place]. tel:[phone] [facility] , [address] [place] [address], [facility], [place] tel:[phone] [facility] No Information 3 Mango Matthews. [address] [place] [address], [id number] , [place]. tel:[phone] [facility] , [address] [place] [address], [address], [place] tel:[phone] [facility] Body mass index (BMI) 28.0-28.9, adultObstructive sleep apnea (adult) (pediatric)Psychop hysiologic insomniaFibromyalg ia 3 Mango Matthews. [address] [place] [address], [id number] , [place]. tel:[phone] Family History Family Member Type Diagnosis Age [...] Other Provider Payers Payer name Insurance type Identifiers Authorization(s) Com zachary Dinh [id number] CI ID: [id number] Name: Coverage Status Eligibility Check on: [id number] hip to Subscriber: selfPayer Address: [facility] [id number], [place], [place], [id number], [facility] Phone: [phone] Social History Type Description Quantity Date Captured Comments Alcohol Use Details Unknown Caffeine Use Details Unknown Tobacco Use Status No Information Smoking Status No Information Sex Female Sexual Orientation Straight or heterosexual Current Gender Female (finding) Chief Complaint And Reason For Visit No Information Plan Of Treatment Date Type Action Status Goal Dietary management education , guidance, and counseling completed Referral Ordered: Home Sleep Apnea Test (HSAT) ordered History Of Present Illness Encounter Date Complaint History Of Prese nt Illness No Information Functional Status Date Description Comments No Information Instructions Date Instruction Additional Infor mation Dietary management e ducation, guidance, and counseling Related to Body mass index [BMI] 28.0-28.9, adult Assessments Type Assessment Date No Information
[2025-08-15 14:45] VITALS: BP 102/72; PULSE 94; O2SAT 97; BMI 21.3
--- NOTE | 2025-08-15 14:45 | MHC.OFFVIS ---
Vital Signs 08/15/25 14:45 Height 5 ft 4 in Weight 124 lb BMI 21.3 BP 102/72 Blood Pressure Location Rt brachial Position Sitting Pulse 94 Pulse Source Pulse Oximeter Pulse Oximetry (%) 97 Oxygen Delivery Method Room Air Intake Visit Reasons: Shortness of breath Allergies ketorolac Allergy (Unknown, Verified 08/15/25 14:49) anaphylaxis HPI HPI Shortness of breath: Details: 59-year-old lady followed for underlying moderate obstructive sleep apnea on CPAP therapy and primary insomnia previously on Lunesta and gabapentin with suboptimal response, now on Ambien with moderate control. Her sleep apnea is well controlled on current CPAP therapy. [facility] Medical History (Updated 07/05/25 @ 13:49 by VERNA Parker) Hypothyroid Esophagitis Sleep apnea Urinary incontinence Elevated cholesterol Fibromyalgia Hypothyroid Diabetes GERD (gastroesophageal reflux disease) Surgical History H/O colonoscopy History of section Hx of tonsillectomy Family History Maternal Aunt Diverticulosis Paternal Aunt H/O colectomy Social History Alcohol intake: never Patient Tobacco Use Status: Never used Tobacco Review of Systems Const Denies daytime sleepiness, Denies excessive sweating, Denies fatigue, Denies fever(s), Denies lethargy, Denies malaise, Denies night sweats, Denies snoring, Denies weight loss and Reports other (Insomnia) Eyes Denies blurry vision and Denies itchy eyes ENT Denies nasal congestion, Denies post nasal drip, Denies sinus pain, Denies sinus pressure and Denies other ( Thrush) Card Denies chest pain, Denies pedal edema, Denies dyspnea, Denies orthopnea and Denies paroxysmal nocturnal dyspnea Resp Denies cough, Denies hemoptysis, Denies excessive phlegm production, Denies dyspnea, Denies snoring and Denies wheezing GI Denies abdominal pain and Denies heartburn Musc Denies myalgias, Denies arthralgias and Denies joint swelling Skin/Breast Denies rash Neuro Denies memory loss and Denies seizure-like activity Psych Denies abnormal sleep pattern, Denies anxiety and Denies memory loss Endo Denies excessive sweating, Denies fatigue and Denies heat intolerance Johan/Lymph Denies easy bruising Aller/Immun Denies itchy eyes, Denies seasonal rhinorrhea and Denies wheezing Physical Exam Vital Signs: Last Vital Signs Pulse 94 08/15/25 14:45 BP 102/72 08/15/25 14:45 Pulse Ox 97 08/15/25 14:45 Oxygen Delivery Method Room Air 08/15/25 14:45 BMI result Body Mass Index 21.3 Const General: no acute distress and alert Nutritional Appearance: not obese Orientation/consciousness: Other orientation findings ( oriented) HEENT Head: Yes atraumatic Eyes General: appearance normal, both eyes and all related structures Sclerae: sclerae normal EOM: EOMs intact bilaterally Neck Neck: Yes supple Lymphatic: no lymphadenopathy noted Resp Effort & Inspection: normal respiratory effort and no use of accessory muscles Auscultation: clear to auscultation bilaterally Cardio Rate: regular rate Rhythm: regular rhythm Heart sounds: no gallops, no murmurs and no rubs Skin General skin exam: other ( warm) Extrem General: No clubbing, No cyanosis and No edema Assessment & Plan Assessment & Plan (1) Primary insomnia: Code(s): F51.01 - Primary insomnia Category: Medical Plan: Still suboptimally controlled on Ambien. Patient wants to follow-up with neurologist, neurology consultation request placed. Continue Ambien. (2) PARMJIT (obstructive sleep apnea): Code(s): G47.33 - Obstructive sleep apnea (adult) (pediatric) Category: Medical Plan: Therapy and compliance report reviewed - patient is benefitting from and is compliant with noninvasive positive pressure ventilation treatment, using it greater than 70% of the time, more than 4 hours per night. Continue current CPAP therapy. Coding Level of Care Code Est Pt Level 4 (62608) Diagnoses Primary insomnia F51.01 PARMJIT (obstructive sleep apnea) G47.33
--- OUTSIDE RECORDS SUMMARY | 2025-08-15 22:11 | XMS_ITS | Clinical Summary ---
Author Organization [employer] Address [address] [facility] [address]t [place] [address] Care Team Providers Care Transport Specialist Name Role Phone Unavailable Primary Care [...] 1:00 PM EDT Office Visit [facility] ADULT DENTAL [address] [place] [address] Rocio Silva Crowded teeth (Primary Dx); Dental [...] Description 12/02/2025 2:15 PM EDT Office Visit [facility] ADULT DENTAL [address] [place] [address] Rocio Silva [address] [place] [address] Health Maintenance Due Date Last Done Comments [...] Most Recently Relevant to Health Maintenance [place] [address] [place] [address]
--- OUTSIDE RECORDS SUMMARY | 2025-08-15 22:11 | XMS_ITS | Encounter Summary ---
Author Organization [employer] Address [address] [place] [address] 7 [place] [address] Care Team Providers Care Weaver [employer] Name Role Phone Unavailable Primary Care Provider Unavailabl e Encounter Details Date Type Department Care Team (Latest Contact Info) Description 06/18/2020 Abstract [facility] CONVERSIONS Dental, Provider, DDS Social History Tobacco [...] Description 12/02/2025 2:15 PM EDT Office Visit [facility] ADULT D[facility] [address] [place] [address] RicardoBalajiRocio [address] [place] [address] documented as of this encounter Visit Diagnoses Not on filedocumented in this encounter
--- OUTSIDE RECORDS SUMMARY | 2025-08-15 22:11 | XMS_ITS | Data Portability ---
Author Organization ANGELIC Zapien s, [address] Address [address] [place] [address] Assessment No assessment recorded. Plan of Treatment Reminders Order Date Submit Date Provider Last Modified By Organization Details Last Modified Time Details Appointments None recorded. Lab rapid flu (A+B) 2023 024 [email or web address] [address], [address] [place], [address], 4 17:04:41 SARS CoV 2 (COVID-19) Ag, QL, IA, upper respiratory specimen 2023 024 [email or web address] [address], [address] [place], [address], 4 17:04:42 urinalysis, dipstick 2023 024 [email or web address] [address], [address] [place], [address], 4 17:04:44 culture, urine 2023 024 [facility] [address] [place] [address], [place], [address], 4 06:06:26 Referral None recorded. Procedures None recorded. Surgeries None recorded. Imaging None recorded. Medication Orders ondansetron 4 mg disintegrat ing tablet 2023 024 [email or web address] Not available 17:04:33 ondansetron 4 mg disintegrat ing tablet 2023 024 [email or web address] [id number], [address] [place] [address], [place], [address], 17:04:33 Patient TargetsNo targets recorded. Patient Instructions Encounter Date Encounter Id Patient Instructions Last Modified By Organization Details Last Modified Time 12/10/2023 [id number] nausea and vomiting: care instructions Not available [...] much worse, you should seek treatment immediately. [email or web address] Not available 12/10/2023 16:46:45 Reason for Referral None Reported. Results Created Date Observation Date Name Description Value Unit Range Abnormal Flag Note LastModifiedBy Organization Detail LastModifiedTime 12/10/1912/12/2023 URINE CULTU REYENI urine culture, routine FINAL REPORT Not Available [facility] ([facility]) [address] [facility], [place], [address], 12/12/2023 06:06:26 12/10/1912/12/2023 URINE CULTU REYENI result 1 COMMEN T Cultu re shows less than 10,00 0 colon y formi ng units of bacte mariola per rivera liter of urine . This colon y count is not gener ally consi dered to be clini weston signi sven t. Not Available [facility] ([facility]) [address] [facility], [place], [address], 12/12/2023 06:06:26 12/10/19 24 12/10/2023 urina lysis , dipst ick Unknown Analyte Normal = light yellow Not Available [facility] [address] [place], [address], 12/10/2023 16:50:53 12/10/19 24 12/10/2023 urina lysis , dipst ick Unknown Analyte Yellow Not Available [facility] [address] [place], [address], 12/10/2023 16:50:53 12/10/19 24 12/10/2023 urina lysis , dipst ick Unknown Analyte Normal = clear Not Available [facility] [address] [place], [address], 12/10/2023 16:50:53 12/10/19 24 12/10/2023 urina lysis , dipst ick Unknown Analyte Clear Not Available [facility] [address] [place], [address], 12/10/2023 16:50:53 12/10/19 24 12/10/2023 urina lysis , dipst ick Unknown Analyte Normal = negati ve Not Available [address] [place], [address], 12/10/2023 16:50:53 12/10/19 24 12/10/2023 urina lysis , dipst ick Unknown Analyte Negati ve Not Available [address] [place], [address], 12/10/2023 16:50:53 12/10/19 24 12/10/2023 urina lysis , dipst ick Unknown Analyte Normal = Negati ve Not Available [address] [place], [address], 12/10/2023 16:50:53 12/10/19 24 12/10/2023 urina lysis , dipst ick Unknown Analyte Small Not Available [address] [place] [address] [address] [place], [address], 12/10/2023 16:50:53 12/10/19 24 12/10/2023 urina lysis , dipst ick Unknown Analyte Normal = Negati ve Not Available [facility] [place], [address], 12/10/2023 16:50:53 12/10/19 24 12/10/2023 urina lysis , dipst ick Unknown Analyte Negati ve Not Available [facility] [place], [address], 12/10/2023 16:50:53 12/10/19 24 12/10/2023 urina lysis , dipst ick Unknown Analyte Normal = 1.010, 1.015, 1.020 Not Available [facility] [place], [address], 12/10/2023 16:50:53 12/10/19 24 12/10/2023 urina lysis , dipst ick Unknown Analyte 1.030 Not Available [address] [place] [address] [address] [place], [address], 12/10/2023 16:50:53 12/10/19 24 12/10/2023 urina lysis , dipst ick Unknown Analyte Normal = Negati ve Not Available [facility] [place], [address], 12/10/2023 16:50:53 12/10/19 24 12/10/2023 urina lysis , dipst ick Unknown Analyte Negati ve Not Available [address] [place], [address], 12/10/2023 16:50:53 12/10/19 24 12/10/2023 urina lysis , dipst ick Unknown Analyte Normal = 6.5, 7.0, 7.5, 8.0 Not Available [address] [place], [address], 12/10/2023 16:50:53 12/10/19 24 12/10/2023 urina lysis , dipst ick Unknown Analyte 5.5 Not Available [address] [place], [address], 12/10/2023 16:50:53 12/10/19 24 12/10/2023 urina lysis , dipst ick Unknown Analyte Normal = Negati ve Not Available [address] [place], [address], 12/10/2023 16:50:53 12/10/19 24 12/10/2023 urina lysis , dipst ick Unknown Analyte Negati ve Not Available [address] [place], [address], 12/10/2023 16:50:53 12/10/19 24 12/10/2023 urina lysis , dipst ick Unknown Analyte Normal = 0.2, 1.0 Not Available [address] [place], [address], 12/10/2023 16:50:53 12/10/19 24 12/10/2023 urina lysis , dipst ick Unknown Analyte Normal = Negati ve Not Available [address] [place], [address], 12/10/2023 16:50:53 12/10/19 24 12/10/2023 urina lysis , dipst ick Unknown Analyte Negati ve Not Available [address] [place], [address], 12/10/2023 16:50:53 12/10/19 24 12/10/2023 urina lysis , dipst ick Unknown Analyte Normal = Negati ve Not Available [address] [place], [address], 12/10/2023 16:50:53 12/10/19 24 12/10/2023 urina lysis , dipst ick Unknown Analyte Negati ve Not Available [address] [place], [address], 12/10/2023 16:50:53 12/10/19 24 12/10/2023 urina lysis , dipst ick Unknown Analyte 0.2 E.U./d L Not Available [facility] [place], [address], 12/10/2023 16:50:53 12/10/19 24 12/10/2023 SARS CoV 2 (COVI D-19) Ag, QL, IA, upper respi rator y speci men Unknown Analyte negati ve Not Available [facility] [place], [address], 12/10/2023 16:50:43 12/10/19 24 12/10/2023 SARS CoV 2 (COVI D-19) Ag, QL, IA, upper respi rator y speci men Unknown Analyte yes Not Available [facility] [address] [place], [address], 12/10/2023 16:50:43 12/10/19 24 12/10/2023 rapid flu (A+B) Unknown Analyte negati ve Not Available [address] [place], [address], 12/10/2023 16:50:34 12/10/19 24 12/10/2023 rapid flu (A+B) Unknown Analyte negati ve Not Available [address] [place], [address], 12/10/2023 16:50:34 12/10/19 24 12/10/2023 rapid flu (A+B) Unknown Analyte Not Available [address] [address] [place], [address], 12/10/2023 16:50:34 Result Notes None recorded. Problems Name Problem SNOMED Code Status Onset Date Resolution Date Notes Provider Name and Address Organization Details Recorded Time Fibromyalgia 786544705 Active ANGELIC Barragan [facility] 4 16:49:49 Disorder of thyroid gland 06249453 Active ANGELIC Barragan [facility] 4 16:50:00 Problem Notes None recorded. Medical Equipment None Reported. Allergies Allergen ID Allergen Name Allergen Category Reaction Reaction Severity Criticality Documentation Date Start Date Code Code System Note Provider Name and Address Organization Details Recorded Time 402710 Toradol medicatio n Not available Not available Not available 12/10/2023 52940 RxNorm ANGELIC Barragan [facility] 4 16:49:03 [...] Recorded Body height Body weight Oxygen saturation Heart rate Respiratory rate Body temperature Systolic And Diastolic Provider Name and Address Organization Details Last Updated DateTime 4 162.56 cm 83008.7 4 g 99 % 91 /min 18 /min 96.2 [degF] 116/77 mm[Hg] Yesenia Naidu PA - [facility] 4 16:47:53 Date Recorded Body height Body mass index (BMI) Body weight Oxygen saturation Heart rate Respiratory rate Body temperature Systolic And Diastolic Provider Name and Address Organization Details Last Updated DateTime 4 162.56 cm 27.5 kg/m2 89273.7 8 g 96 % 84 /min 18 /min 97.4 [degF] 101/68 mm[Hg] Bia Rosenberg PA - [facility] 4 13:14:07 Social History Question Answer Notes LastModified by Organizat ion Details LastModified Time Tobacco Smoking Status Never Smoker Yesenia jensen PA - [facility] 12/10/2023 16:50:21 Have You Had A Flu Shot This Season? Yes Information not available 12/17/2023 What Was The Date Of Your Most Recent Tobacco Screening? 12/10/2023 [email or web address] Information not available 12/10/2023 What Is Your Relationship Status? Single Information not available 12/17/2023 Are You Currently In School? No Information not available 12/17/2023 Sex: Unknown Functional Status Question Answer Note LastModified by Organization D etails LastModified Time Do you or have you ever used any other forms of tobacco or nicotine? No [email or web address] Information not available 12/10/2023 What is your level of alcohol consumption? None Information not available 12/10/2023 Are you currently employed? Yes Information not available 12/17/2023 Mental Status None recorded. Family History Relationship Description Onset Age of this Age Resolved Age Notes LastModified by Organization Details LastModified Time Father No current problems or disability [email or web address] Not available 02/2024 16:50:10 Mother No current problems or disability [email or web address] Not available 02/2024 16:50:10 Medical History No medical history recorded. Gynecological HistoryNo gynecological history recorded. Obstetrics History GPAL:G 0 P 0 0 0 0 Past Encounters Encounter ID Performer Location Encounter Start Date Encounter Closed Date Diagnosis/Indication Diagnosis SNOMED-CT Code Diagnosis ICD10 Code Diagnosis IMO Codes Diagnosis Note [id number] [address] [place] [address] 2019 15:06:30 2019 17:03:48 [id number] [address] [place] [address] 05/17/2021 10:22:51 05/17/2021 13:44:56 [id number] [address] [place] [address] 11/27/2018 13:40:56 11/27/2018 14:23:10 [id number] [address] [place] [address] 02/18/2020 10:11:47 02/18/2020 11:06:53 [id number] Royal Whitlock, [address] [place] [address] 12/10/2023 16:29:01 12/10/2023 17:29:38 Nausea and vomiting 74643569 R11.2 VSS and she does not have [...] agreement with the plan as outlined above. [id number] ANGELIC Barr [address] [facility] [address] 12/17/2023 13:01:46 12/17/2023 13:29:02 Viral gastroenteritis 048130040 A08.4 Based on you exam and presentati [...] Blood in Urine. Thank you for using [employer] , please feel free to contact us [...] Name 12/17/2023 1 [employer] [facility] [facility] (EPO) [id number] Bianca Alarcon [id number] Bianca robb 12/10/2023 1 [facility] (O) [id number] Bianca Alarcon [id number] Bianca robb Notes Date Note Type Note Provider Name and Address Organization Details Recorded Time 12/10/2023 text/html Nausea / Vomitin g UCReported by [email or web address] yo female c/o nausea, abdominal pain x 1 dconstipation x 1 dvomiting x 8 times since this morningstarted after eating a tuna sandwich no blood in vomit 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 no [...] Royal Whitlock DO [address] [place], [address], [place] PA - [facility] 12/10/2023 17:13:10 12/17/2023 text/html 58 y/o female here with continued abdominal pain with gastro virus starting last week. Starting to feel a bit better, but wants to make sure she's on the right past ANGELIC Barr [address] [place], [address], PA - [facility] 12/17/2023 13:27:00 OBGyn Episode No OBEpisode recorded.
--- OUTSIDE RECORDS SUMMARY | 2025-08-15 22:11 | XMS_ITS | Encounter Summary ---
Author Organization [employer] Address [address] [place] [address] [address] [place] [address] Care Team Providers Care Research Consultant Name Role Phone Unavailable Primary Care Provider Unavailabl e Encounter Details Date Type Department Care Team (Latest Contact Info) Description 11/15/2018 Abstract [facility] CONVERSIONS Dental, Provider, DDS Social History [...] Description 12/02/2025 2:15 PM EDT Office Visit [facility] ADULT D[facility]AL [address] [place] [address] RicardoBalajiRcoio [address] [place] [address] documented as of this encounter Visit Diagnoses Not on filedocumented in this encounter
--- OUTSIDE RECORDS SUMMARY | 2025-08-15 22:11 | XMS_ITS | Clinical Summary ---
Author Organization [facility] Address [address] [facility] [address] [place] [address] Phone Care Team Providers Care Semiconductor Processing Group Leader Name Role Phone Artur Sweeney MD Primary [...] topic Medical Devices Not on file Insurance [facility] NON NSPG PCP LJ [place] CONNE[employer]CARE [employer] NON NSPG PCP SILVER CLARITY CONNE[employer]CARE [employer] NON NSPG PCP SILVER CLARITY CONNECTORCARE [employer] NON NSPG PCP SILVER CLARITY CONNECTORCARE [employer] NON NSPG PCP SILVER CLARITY CONNECTORCARE [employer] NON NSPG PCP SILVER CLARITY CONNECTORCARE [employer] NON NSPG PCP SILVER CLARITY CONNECTORCARE [employer] NON NSPG PCP SILVER CLARITY CONNECTORCARE [address] [place], [place] [address]ENSE NON NSPG PCP SILVER CLARITY CONNECTORCARE Care Teams Semiconductor Processing Group Leader Relationship Specialty Start Date End Date Artur Sweeney MD PCP - General Endocrinology 05/15/19 Additional Source Comments The information contained in this document represents components of the legal health record. It is not the complete legal health record.[facility]
== END 2025-08-15 14:59 | disposition home or self-care (01) ==
LOC: HO.HPS 14:34
PROVIDERS: PCP Nurse Practitioner; Visit Provider Internal Medicine Pulmonary Disease
DX: F51.01 Primary insomnia (principal); G47.33 Obstructive sleep apnea (adult) (pediatric)
CPT/HCPCS: 99214